=== PATIENT | male | born 1935 | race Caucasian/White ===

== ENCOUNTER 2017-04-17 21:35 | Emergency (ER) | payer MEDICARE, BC ==
--- NOTE | 2017-04-17 23:40 | RAD ---
CHEST ONE VIEW: History: Dyspnea. Comparison: 03-31-16 FINDINGS: Lungs are slightly hyperinflated. No focal airspace consolidation, pneumothorax or effusion. Chronic pleural and parenchymal changes. Old left sided rib fractures. IMPRESSION: No acute intrathoracic abnormality. POS: [facility]
== END 2017-04-18 00:39 | disposition home or self-care (01) ==
LOC: ERS 21:35
DX: J98.01 Acute bronchospasm (principal); F32.9 Major depressive disorder, single episode, unspecified; J44.9 Chronic obstructive pulmonary disease, unspecified; M10.9 Gout, unspecified; Z79.899 Other long term (current) drug therapy
CPT/HCPCS: 71010; 94760

== ENCOUNTER 2018-02-22 11:39 | Inpatient (IN) | payer MEDICARE, BC ==
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
[2018-02-22 12:00] LABS: #Eosinphils 0.3 thou/uL (0.0-0.7); #Lymphocytes 2.1 thou/uL (1.20-3.40); #Monocytes 1.4 thou/uL (0.11-0.59); #Neutrophils 13.4 thou/uL (1.40-6.50); %Basophils 0.2 % (0.0-1.0); %Eosinophils 1.6 % (0.0-10.0); %Lymphocytes 12.2 % (21.0-51.0); %Neutrophils 77.9 % (42.0-75.0); Hemoglobin 14.8 g/dL (14.0-18.0); Mean Corpuscular HGB CONC 31.6 g/dL (32.0-36.0); Mean Corpuscular Hemoglobin 31.1 pg (27.0-31.0); Mean Corpuscular Volume 98.3 fL (78.0-98.0); Mean Platelet Volume 7.8 fL (7.4-10.4); Platelet Count 222 thou/uL (130-400); RBC Distribution Width 12.6 % (11.5-14.5); Red Blood Cell (RBC) Count 4.75 mill/uL (4.70-6.10); White Blood Cell (WBC) Count 17.2 thou/uL (4.8-10.8)
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
[2018-02-22 12:19] LABS: ALT (SGPT) 24 U/L (8-55); AST (SGOT) 22 U/L (5-34); Alkaline Phosphatase 69 U/L (40-150); Anion Gap 15 mmol/L (10-20); BUN (Urea Nitrogen) 18 mg/dL (8.4-25.7); Bilirubin, Total 0.5 mg/dL (0.2-1.2); Calc. Creatinine Clearance 0 mL/min (70-130); Calcium 9.7 mg/dL (7.8-10.44); Carbon Dioxide 27 mmol/L (23-31); Chloride 99 mmol/L (98-107); Estimated GFR-MDRD 81; Globulin 2.6 g/dL (2.4-3.5); Glucose 140 mg/dL (83-110); Potassium 4.2 mmol/L (3.5-5.1); Protein, Total 6.6 g/dL (5.8-8.1); Sodium 137 mmol/L (136-145)
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
[2018-02-22] MEDS ORDERED: Ketorolac Tromethamine 30 MG/ML VIAL ONE (12:42)
[2018-02-22] MEDS ORDERED: Adacel (T-DAP) 0.5 ML VIAL ONE (12:56)
[2018-02-22] MEDS ORDERED: ISOVUE-370 76%-LOCM 1 ML ONE (13:39)
[2018-02-22] MEDS ORDERED: Dextrose 50% Abboject 50 ML SYRINGE SLOW IVP PRN (15:28)
[2018-02-22] MEDS ORDERED: Ondansetron ODT 4 MG TAB PO PRN (15:28)
[2018-02-22] MEDS ORDERED: Ondansetron HCl/PF 4 MG/2 ML Vial IVP PRN (15:28)
[2018-02-22] MEDS ORDERED: hydrALAZINE 20 MG/ML VIAL SLOW IVP PRN (15:28)
[2018-02-22] MEDS ORDERED: Rib Fracture Protocol PO SCH (15:28)
[2018-02-22] MEDS ORDERED: Dextrose 5% in Water 1,000 ML IV PRN (15:28)
[2018-02-22 16:33] VITALS: BMI 34.9
[2018-02-22] MEDS ORDERED: Cyclobenzaprine 10 MG TAB PO PRN (16:45)
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
[2018-02-22] MEDS ORDERED: Acetaminophen/Codeine 30-300mg Tablet PO PRN ×2 (16:57)
[2018-02-22] MEDS: Acetaminophen 500 MG TAB PO SCH ×2 (17:18→22:07)
[2018-02-22] MEDS ORDERED: Acetaminophen 500 MG TAB PO SCH (18:00)
[2018-02-22] MEDS ORDERED: traMADol HCl 50 MG TAB PO SCH (18:00)
[2018-02-22] MEDS: Gabapentin 100 MG CAP PO SCH (20:16)
[2018-02-22] MEDS ORDERED: Famotidine 20 MG TAB PO SCH (21:00)
[2018-02-22] MEDS ORDERED: Ibuprofen 600 MG TAB PO SCH (22:00)
[2018-02-23] MEDS: Acetaminophen 500 MG TAB PO SCH ×4 (04:06→22:40)
[2018-02-23] MEDS ORDERED: Non-Formulary Item 1 EACH (Fluticasone/Salmeterol [Advair Diskus 100/50] 1 INH) IH PRN (05:42)
[2018-02-23 06:14] LABS: Anion Gap 16 mmol/L (10-20); BUN (Urea Nitrogen) 26 mg/dL (8.4-25.7); Calc. Creatinine Clearance 86 mL/min (70-130); Calcium 9.1 mg/dL (7.8-10.44); Carbon Dioxide 25 mmol/L (23-31); Chloride 98 mmol/L (98-107); Estimated GFR-MDRD 76; Glucose 124 mg/dL (83-110); Potassium 4.5 mmol/L (3.5-5.1); Sodium 134 mmol/L (136-145)
[2018-02-23 06:46] LABS: #Eosinphils 0.2 thou/uL (0.0-0.7); #Lymphocytes 1.1 thou/uL (1.20-3.40); #Monocytes 1.2 thou/uL (0.11-0.59); #Neutrophils 7.9 thou/uL (1.40-6.50); %Basophils 0.3 % (0.0-1.0); %Eosinophils 2.4 % (0.0-10.0); %Lymphocytes 10.7 % (21.0-51.0); %Monocytes 10.9 % (0.0-10.0); %Neutrophils 75.7 % (42.0-75.0); Mean Corpuscular HGB CONC 32.2 g/dL (32.0-36.0); Mean Corpuscular Hemoglobin 31.7 pg (27.0-31.0); Mean Corpuscular Volume 98.5 fL (78.0-98.0); Mean Platelet Volume 7.6 fL (7.4-10.4); Platelet Count 156 thou/uL (130-400); RBC Distribution Width 12.4 % (11.5-14.5); Red Blood Cell (RBC) Count 4.08 mill/uL (4.70-6.10); White Blood Cell (WBC) Count 10.5 thou/uL (4.8-10.8)
[2018-02-23] MEDS: Mometasone/Formoterol 120 PUFF INHALER INH SCH ×2 (07:48→19:40)
[2018-02-23] MEDS ORDERED: Cetirizine HCl 10 MG TAB PO SCH (09:00)
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
[2018-02-23] MEDS: Loratadine 10 MG TAB PO SCH (09:13)
[2018-02-23] MEDS: Venlafaxine HCl XR 150 MG CAP PO SCH (09:13)
[2018-02-23] MEDS: predniSONE 5 MG TAB PO SCH (09:13)
[2018-02-23] MEDS: Calcium Carbonate + Vit D 1 TAB PO SCH (09:13)
[2018-02-23] MEDS: Allopurinol 300 MG TAB PO SCH (09:15)
[2018-02-23] MEDS: Gabapentin 100 MG CAP PO SCH ×3 (09:15→20:21)
[2018-02-23] MEDS: Ascorbic Acid 500 mg Chewable Tablet PO SCH ×2 (09:20→20:25)
[2018-02-23] MEDS: Enoxaparin Sodium 40 MG/0.4 ML SYRINGE SC SCH (12:43)
[2018-02-23] MEDS: Ferrous Sulfate 325 MG TAB PO SCH (20:21)
[2018-02-24] MEDS: Acetaminophen 500 MG TAB PO SCH ×4 (04:29→23:25)
[2018-02-24 06:54] LABS: Anion Gap 14 mmol/L (10-20); BUN (Urea Nitrogen) 33 mg/dL (8.4-25.7); Calc. Creatinine Clearance 75 mL/min (70-130); Calcium 9.5 mg/dL (7.8-10.44); Carbon Dioxide 28 mmol/L (23-31); Chloride 94 mmol/L (98-107); Estimated GFR-MDRD 65; Glucose 135 mg/dL (83-110); Magnesium 2.4 mg/dL (1.6-2.6); Phosphorus 3.6 mg/dL (2.3-4.7); Sodium 131 mmol/L (136-145)
[2018-02-24] MEDS: Mometasone/Formoterol 120 PUFF INHALER INH SCH ×2 (07:01→18:41)
[2018-02-24] MEDS ORDERED: traMADol HCl 50 MG TAB PO PRN ×2 (07:59→08:30)
[2018-02-24] MEDS: Allopurinol 300 MG TAB PO SCH (09:28)
[2018-02-24] MEDS: Calcium Carbonate + Vit D 1 TAB PO SCH (09:28)
[2018-02-24] MEDS: predniSONE 5 MG TAB PO SCH (09:29)
[2018-02-24] MEDS: Loratadine 10 MG TAB PO SCH (09:29)
[2018-02-24] MEDS: Gabapentin 100 MG CAP PO SCH ×3 (09:30→20:04)
[2018-02-24] MEDS: Venlafaxine HCl XR 150 MG CAP PO SCH (09:30)
[2018-02-24] MEDS: Enoxaparin Sodium 40 MG/0.4 ML SYRINGE SC SCH (09:30)
[2018-02-24] MEDS: ABIRATERONE ACETATE 250 MG PO SCH (09:31)
[2018-02-24] MEDS ORDERED: traMADol HCl 50 MG TAB PO SCH (12:00)
[2018-02-24] MEDS: traMADol HCl 50 MG TAB PO SCH ×2 (14:41→20:04)
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
[2018-02-24] MEDS: Ferrous Sulfate 325 MG TAB PO SCH (20:04)
[2018-02-25] MEDS: traMADol HCl 50 MG TAB PO SCH ×4 (02:18→21:56)
[2018-02-25] MEDS: Acetaminophen 500 MG TAB PO SCH ×4 (05:14→23:57)
[2018-02-25] MEDS: Mometasone/Formoterol 120 PUFF INHALER INH SCH ×2 (06:18→18:35)
[2018-02-25 07:12] LABS: Anion Gap 12 mmol/L (10-20); BUN (Urea Nitrogen) 23 mg/dL (8.4-25.7); Calc. Creatinine Clearance 108 mL/min (70-130); Calcium 9.3 mg/dL (7.8-10.44); Carbon Dioxide 28 mmol/L (23-31); Chloride 93 mmol/L (98-107); Estimated GFR-MDRD Greater than 90; Glucose 112 mg/dL (83-110); Potassium 4.9 mmol/L (3.5-5.1); Sodium 128 mmol/L (136-145)
[2018-02-25] MEDS: Enoxaparin Sodium 40 MG/0.4 ML SYRINGE SC SCH (08:32)
[2018-02-25] MEDS: Allopurinol 300 MG TAB PO SCH (08:33)
[2018-02-25] MEDS: Gabapentin 100 MG CAP PO SCH ×3 (08:33→21:56)
[2018-02-25] MEDS: predniSONE 5 MG TAB PO SCH (08:33)
[2018-02-25] MEDS: Calcium Carbonate + Vit D 1 TAB PO SCH (08:34)
[2018-02-25] MEDS: Loratadine 10 MG TAB PO SCH (08:36)
[2018-02-25] MEDS: ABIRATERONE ACETATE 250 MG PO SCH ×2 (08:38→15:12)
[2018-02-25] MEDS: Venlafaxine HCl XR 150 MG CAP PO SCH (08:38)
[2018-02-25] MEDS ORDERED: traMADol HCl 50 MG TAB PO PRN (10:14)
[2018-02-25] MEDS ORDERED: Polyethylene Glycol 3350 17 GM Packet PO SCH (11:45)
[2018-02-25] MEDS: Ibuprofen 800 MG TAB PO SCH ×2 (12:14→18:07)
[2018-02-25] MEDS ORDERED: Senokot S 8.6-50 MG TAB PO SCH (21:00)
[2018-02-25] MEDS: Ferrous Sulfate 325 MG TAB PO SCH (21:55)
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
[2018-02-26] MEDS: Ibuprofen 800 MG TAB PO SCH ×2 (02:22→09:53)
[2018-02-26] MEDS: traMADol HCl 50 MG TAB PO SCH ×2 (02:23→09:51)
[2018-02-26] MEDS: Acetaminophen 500 MG TAB PO SCH ×2 (05:17→14:07)
[2018-02-26] MEDS: Mometasone/Formoterol 120 PUFF INHALER INH SCH (06:15)
[2018-02-26 06:17] LABS: Anion Gap 13 mmol/L (10-20); BUN (Urea Nitrogen) 26 mg/dL (8.4-25.7); Calc. Creatinine Clearance 94 mL/min (70-130); Calcium 9.2 mg/dL (7.8-10.44); Carbon Dioxide 30 mmol/L (23-31); Chloride 93 mmol/L (98-107); Estimated GFR-MDRD 85; Glucose 121 mg/dL (83-110); Magnesium 2.1 mg/dL (1.6-2.6); Potassium 4.8 mmol/L (3.5-5.1); Sodium 131 mmol/L (136-145)
[2018-02-26] MEDS: ABIRATERONE ACETATE 250 MG PO SCH (08:22)
[2018-02-26] MEDS ORDERED: Polyethylene Glycol 3350 17 GM Packet PO SCH ×2 (09:00)
[2018-02-26] MEDS ORDERED: Docusate 100 MG CAP PO SCH (09:00)
[2018-02-26] MEDS ORDERED: Senokot 8.6 MG TAB PO SCH (09:00)
[2018-02-26] MEDS: Enoxaparin Sodium 40 MG/0.4 ML SYRINGE SC SCH (09:49)
[2018-02-26] MEDS: Venlafaxine HCl XR 150 MG CAP PO SCH (09:50)
[2018-02-26] MEDS: Gabapentin 100 MG CAP PO SCH (09:50)
[2018-02-26] MEDS: predniSONE 5 MG TAB PO SCH (09:53)
[2018-02-26] MEDS: Loratadine 10 MG TAB PO SCH (09:53)
[2018-02-26] MEDS: Allopurinol 300 MG TAB PO SCH (09:53)
[2018-02-26] MEDS: Calcium Carbonate + Vit D 1 TAB PO SCH (09:53)
[2018-02-26] MEDS ORDERED: traMADol HCl 50 MG TAB PO PRN (10:14)
[2018-02-26 12:54] VITALS: BP 120/78; TEMP 98
[2018-02-26] MEDS ORDERED: traMADol HCl 50 MG TAB PO SCH (15:00)
== END 2018-02-26 13:15 | DRG 185 ==
LOC: ERS 11:39 → SURG A 14:56
PROVIDERS: ADMIT Surgery; ATTEND Surgery
DX: S22.41XA Multiple fractures of ribs, right side, initial encounter for closed fracture (principal); S20.212A Contusion of left front wall of thorax, initial encounter; V43.52XA Car driver injured in collision with other type car in traffic accident, initial encounter; Y92.410 Unspecified street and highway as the place of occurrence of the external cause; Z88.0 Allergy status to penicillin; J44.9 Chronic obstructive pulmonary disease, unspecified; F32.9 Major depressive disorder, single episode, unspecified; Z85.46 Personal history of malignant neoplasm of prostate; Z82.49 Family history of ischemic heart disease and other diseases of the circulatory system
CPT/HCPCS: 36415; 36416; 70450; 71045; 71260; 72125; 74177; 80048; 80053; 83735; 84100; 85025; 90471; 90662; 90715; 94640; 96374; G0008; G0390; G8978-GP-CM; G8979-GP-CI; G8987-GO-CL; G8988-GO-CI; J1650; J1885; J7620

== ENCOUNTER 2018-08-10 07:51 | Observation (INO) | payer MEDICARE ==
[2018-08-10 08:46] LABS: #Basophils 0.1 thou/uL (0.0-0.2); #Eosinphils 0.4 thou/uL (0.0-0.7); #Lymphocytes 1.6 thou/uL (1.20-3.40); #Monocytes 1.4 thou/uL (0.11-0.59); #Neutrophils 8.1 thou/uL (1.40-6.50); %Basophils 0.4 % (0.0-1.0); %Eosinophils 3.1 % (0.0-10.0); %Lymphocytes 14.1 % (21.0-51.0); %Monocytes 11.9 % (0.0-10.0); %Neutrophils 70.5 % (42.0-75.0); Hemoglobin 13.1 g/dL (14.0-18.0); Mean Corpuscular HGB CONC 33.1 g/dL (32.0-36.0); Mean Corpuscular Hemoglobin 32.1 pg (27.0-31.0); Mean Corpuscular Volume 96.9 fL (78.0-98.0); Mean Platelet Volume 7.9 fL (7.4-10.4); Platelet Count 216 thou/uL (130-400); RBC Distribution Width 12.6 % (11.5-14.5); White Blood Cell (WBC) Count 11.4 thou/uL (4.8-10.8)
[2018-08-10 08:54] LABS: PTT 25.2 SEC (22.9-36.1); Prothrombin Time 12.9 SEC (12.0-14.7)
[2018-08-10 09:01] LABS: Anion Gap 9 mmol/L (10-20); BUN (Urea Nitrogen) 16 mg/dL (8.4-25.7); Calc. Creatinine Clearance 81 mL/min (70-130); Calcium 9.3 mg/dL (7.8-10.44); Carbon Dioxide 34 mmol/L (23-31); Chloride 101 mmol/L (98-107); Estimated GFR-MDRD 71; Glucose 100 mg/dL (83-110); Potassium 4.3 mmol/L (3.5-5.1); Sodium 140 mmol/L (136-145)
[2018-08-10] MEDS ORDERED: Fentanyl 100 MCG/2 ML VIAL ONE (09:37)
[2018-08-10] MEDS ORDERED: Midazolam HCl 2 mg/2 ml Vial ONE (09:37)
[2018-08-10] MEDS ORDERED: Propofol 500 MG/50 ML VIAL ONE (09:44)
[2018-08-10] MEDS ORDERED: Isoproterenol 0.2 MG/1 ML AMP ONE (10:47)
[2018-08-10] MEDS ORDERED: Heparin 10,000 UNITS/1 ML VIAL ONE (12:03)
[2018-08-10] MEDS ORDERED: PROVENTIL INHALER 6.7 G (200 INHALATIONS) INH PRN (13:14)
[2018-08-10] MEDS ORDERED: Acetaminophen 500 MG TAB PO PRN (13:14)
[2018-08-10] MEDS ORDERED: Acetaminophen/Codeine 30-300mg Tablet PO PRN ×2 (13:15)
--- NOTE | 2018-08-10 13:55 | OP ---
DATE OF PROCEDURE: 08/10/2018 PROCEDURES PERFORMED: Electrophysiology study and radiofrequency ablation. ADDITIONAL REFERRING PHYSICIAN: Dr. Jv Zheng. REASON FOR PROCEDURE: Mr. Jack is an 83-year-old gentleman with a history of atrial flutter post ablation in 2015, now presents with a narrow complex SVT. Here for a repeat EP study and radiofrequency ablation. DESCRIPTION OF PROCEDURE: The patient received propofol by Anesthesia specialist. After adequate level of sedation achieved, the left and right femoral venous areas were prepped, draped, and anesthetized using subcutaneous lidocaine and with ultrasound guidance, the left femoral vein was cannulated x2 with a 6 and 8- Czech short sheath was inserted. On the right side also with ultrasound guidance, the right femoral venous access was obtained and an 8-Czech short sheath was introduced. From the left side, actually 2 duodeca catheters were advanced to the right ventricle, His bundle, right atrium, and CS position. Pacing, mapping, and recording were performed in each location. Following findings were found, the baseline rhythm is sinus rhythm with cycle length of 591 milliseconds, MN 178, QRS 114, QT 382, AH 121, HV 41 milliseconds, sinus node recovery time was measured to be 931 milliseconds, and corrected at 330 milliseconds. AV Wenckebach cycle length was 310 milliseconds. Retrograde Wenckebach cycle length was 580 milliseconds. Concentric retrograde VA conduction was documented. With the atrial access to my testing, AV edward ERP was measured at 550/260 milliseconds. There was no evident dual AV edward physiology was present. With burst atrial pacing at baseline, only nonsustained rhythms were obtained. With Isuprel though, we were able to induce atrial tachycardia, which was a cycle length of 307 milliseconds. Overdrive pacing from the proximal CS yielded a shorter post pacing interval than from the lateral CS suggestive of right atrial origin. Ventricular overdrive pacing was also performed with return rhythm was VA-AV response suggestive of atrial tachycardia. This rhythm pace terminated with Isuprel decreased. The cycle length lowered with the same activation pattern to about 340-360 milliseconds. Pace mapping of this arrhythmia was performed, which was tracked earliest activation to the right anterolateral area of the tricuspid anulus about 11 o'clock direction. We were able to achieve a 70 milliseconds prior to the CS os in this location. The radiofrequency ablation was performed in this area. A total of 13 lesion delivered at total duration 2 minutes and 37 seconds at 40 christensen. High voltage stimulation in this area did not induce diaphragmatic stimulation. After these lesions were delivered during which transient acceleration of the tachycardia was seen, the tachycardia become uninducible. On and off Isuprel. Following that, with proximal CS pacing, right atrial map was performed, we checked the previous isthmus ablation line. With the mapping, we were able to demonstrate wide double potentials with transisthmus time being up to 120 milliseconds, with isthmus block was suggested by longest transisthmus time adjacent to the ablation line. Again, Isuprel was readministered and the atrial stimulation protocol was repeated with no evident re-inducibility of the tachycardia. At the end of the case, the cardiac silhouette did not change suggestive of noticing an effusion. Catheters and sheaths were pulled in the label sewer. The patient tolerated the procedure well. No complications noted. CONCLUSION: 1. Inducible right atrial tachycardia mapped to the right anterolateral area about 11 o'clock just behind the tricuspid anulus, cautery in this location in the intermediate tachycardia. 2. Prior transisthmus ablation line still produces sufficient cavo-tricupid isthmus block. No atrial flutter or fibrillation was inducible. 3. Normal sinus edward and AV edward function. 4. No evidence of accessory pathway or dual AV edward physiology present. PLAN: Taper down beta blockers as necessary and tolerated and routine monitoring for atrial arrhythmias. Job ID: [id number] [facility]
[2018-08-10 14:33] VITALS: BMI 34.4
[2018-08-10] MEDS ORDERED: PROPOFOL 200 MG/20 ML VIAL ONE (16:37)
[2018-08-10] MEDS: Mometasone/Formoterol 120 PUFF INHALER INH SCH (18:05)
[2018-08-11] MEDS ORDERED: Ondansetron ODT 4 MG TAB PO PRN (01:12)
[2018-08-11] MEDS: Mometasone/Formoterol 120 PUFF INHALER INH SCH (07:39)
[2018-08-11] MEDS ORDERED: Fish Oil 1,000 MG CAP PO SCH (09:00)
[2018-08-11] MEDS ORDERED: Multivitamin W/ Minerals 1 TAB PO SCH (09:00)
[2018-08-11] MEDS ORDERED: predniSONE 5 MG TAB PO SCH (09:00)
[2018-08-11] MEDS ORDERED: Senokot 8.6 MG TAB PO SCH (09:00)
[2018-08-11] MEDS ORDERED: Calcium Carbonate + Vit D 1 TAB PO SCH (09:00)
[2018-08-11] MEDS ORDERED: Prevnar 13-Val Conj/PF 0.5 ML SYRINGE IM ONE (09:00)
[2018-08-11] MEDS ORDERED: Loratadine 10 MG TAB PO SCH (09:00)
[2018-08-11] MEDS ORDERED: Allopurinol 300 MG TAB PO SCH (09:00)
[2018-08-11] MEDS ORDERED: Famotidine 20 MG TAB PO SCH (09:00)
[2018-08-11] MEDS ORDERED: ABIRATERONE ACETATE 250 MG PO SCH (09:00)
[2018-08-11] MEDS ORDERED: Venlafaxine HCl XR 150 MG CAP PO SCH (09:00)
[2018-08-11 12:16] VITALS: BP 145/74; TEMP 99.3
--- NOTE | 2018-08-11 14:18 | DIS ---
DATE OF ADMISSION: 08/10/2018 DATE OF DISCHARGE: 08/11/2018 PROCEDURES PERFORMED: Include electrophysiology study and radiofrequency ablation. DIAGNOSIS: Atrial tachycardia, supraventricular tachycardia. HISTORY OF PRESENT ILLNESS: Mr. Jack is an 83-year-old gentleman known to our practice for history of typical atrial flutter, status post CTI ablation in March 2015. Earlier this year, while being treated for respiratory illness, he was found to have SVT during COPD exacerbation. He was taken to the EP lab for study and possible ablation. He was found to have focal atrial tachycardia, was mapped to the right anterior lateral area at approximately 11 o'clock just behind the tricuspid anulus. CTI line was found to be sufficient and did not require any touch of ablation. He was noninducible for atrial fibrillation or atrial flutter. He was found to have normal sinus node and AV edward function. There was no accessory pathway or dual AV edward physiology present. SUBJECTIVE: Mr. Jack is feeling well. He did have some general aches and pains last night for which he was given Tylenol No. 3, which has caused some confusion over the night and into the morning. Otherwise, his daughter who is his inspector watch parts, is at bedside. There are no concerns or complaints this morning. Both vocalized and they are ready for him to discharge home. REVIEW OF SYSTEMS: Negative for fevers, chills, malaise, nausea, vomiting, or diarrhea. Positive for occasional heart racing. Negative for chest pain, pressure, syncope, near syncope, stroke, or stroke-like symptoms. Otherwise, an 8-point review of systems is conducted and is negative. OBJECTIVE: VITAL SIGNS: Temperature 97.6, pulse 92, blood pressure 145/74, respirations 16, oxygen is 95% on room air. GENERAL: The patient is alert and oriented, speech is clear. Affect is appropriate. Respirations are even and unlabored. LUNGS: Clear to auscultation bilaterally. HEART: Rate is regularly regular and slightly rapid with his sinus rhythm. PMI is nondisplaced. ABDOMEN: Soft, nontender, and nondistended. EXTREMITIES: Warm and dry to touch without clubbing, cyanosis, or edema. NEUROLOGIC: Grossly intact and nonfocal. DISCHARGE INSTRUCTIONS: No lifting greater than 10 pounds for 1 week. No soaking baths for 1 week. After 1 week's time, he may resume activities as before gradually and as tolerated. No driving for 2 days if he is still driving. Followup with [facility] recommended in 6 weeks post ablation or sooner if symptoms dictate. DISCHARGE MEDICATIONS: Resuming home medications as previously taken includin. Effexor daily. 2. Prednisone daily. 3. Danielle-Colace at bedtime. 4. Senokot daily. 5. Ranitidine b.i.d. 6. Zofran as needed. 7. Bernard fish oil daily. 8. Multivitamin daily. 9. Toprol-XL 37.5 mg daily. 10. DuoNeb t.i.d. 11. Advair Diskus daily as needed. 12. Cetirizine daily. 13. Calcium with vitamin D daily. 14. Allopurinol daily. 15. Albuterol q.4 hours p.r.n. 16. Tylenol as needed. 17. Zytiga daily. CONDITION ON DISCHARGE: Stable. Job ID: [id number]
[2018-08-11] MEDS ORDERED: Senokot S 8.6-50 MG TAB PO SCH (21:00)
== END 2018-08-11 14:15 | disposition home or self-care (01) ==
LOC: CCL 07:51 → 2SW 13:00
PROVIDERS: ADMIT Internal Medicine Cardiovascular Disease; ATTEND Internal Medicine Cardiovascular Disease
PROC: 02583ZZ Destruction of Conduction Mechanism, Percutaneous Approach (ICD-10-PCS; principal; 2018-08-10)
PROC: 02K83ZZ Map Conduction Mechanism, Percutaneous Approach (ICD-10-PCS; 2018-08-10)
PROC: 4A023FZ Measurement of Cardiac Rhythm, Percutaneous Approach (ICD-10-PCS; 2018-08-10)
PROC: 4A0234Z Measurement of Cardiac Electrical Activity, Percutaneous Approach (ICD-10-PCS; 2018-08-10)
DX: I47.1 Supraventricular tachycardia (principal); I48.3 Typical atrial flutter; J44.9 Chronic obstructive pulmonary disease, unspecified; K21.9 Gastro-esophageal reflux disease without esophagitis; F17.290 Nicotine dependence, other tobacco product, uncomplicated; M10.9 Gout, unspecified; I45.10 Unspecified right bundle-branch block; J69.0 Pneumonitis due to inhalation of food and vomit; Z79.52 Long term (current) use of systemic steroids; Z79.899 Other long term (current) drug therapy; Z88.6 Allergy status to analgesic agent; Z88.8 Allergy status to other drugs, medicaments and biological substances; Z98.890 Other specified postprocedural states
CPT/HCPCS: 76942; 80048; 85025; 85610; 85730; 93005 ×2; 93609; 93613; 93623; 93653; 94640 ×4; C1730 ×2; C1769; G0378; 36415; 93010; J1644; J2250; J2704; J3010; J7512; J7620

== ENCOUNTER 2018-12-02 09:04 | Outpatient (CLI) | payer MEDICARE, BC ==
--- NOTE | 2018-12-02 14:37 | NM ---
WHOLE BODY BONE SCAN: 12/02/18 COMPARISON: 03/20/16. HISTORY: Prostate cancer. TECHNIQUE: A whole body bone scan was performed after the administration of 28.9 millicuries of technetium 99m M DP. FINDINGS: There are abnormal areas of uptake of the radiopharmaceutical in the right ribs and within the manubr ium. There also is a focal area of abnormal increased uptake of the radiopharmaceutical in the midlin e of the upper thoracic spine. These findings are suspicious for osseous metastases. Soft tissue activity is unremarkable. IMPRESSION: Abnormal areas of uptake of the radiopharmaceutical are suspicious for osseous metastases as above. POS: [facility]
== END 2018-12-02 09:05 | disposition home or self-care (01) ==
LOC: NM 09:04
PROVIDERS: ATTEND Internal Medicine Hematology & Oncology
DX: C61 Malignant neoplasm of prostate (principal); R94.8 Abnormal results of function studies of other organs and systems
CPT/HCPCS: 78306; A9503

== ENCOUNTER 2019-06-02 21:11 | Inpatient (IN) | payer MEDICARE, BC ==
[2019-06-02] MEDS ORDERED: Cefepime 2 GM VIAL ONE (21:46)
[2019-06-02 22:16] LABS: Band 5 % (5-11); Hemoglobin 6.3 g/dL (14.0-18.0); Lymphocytes 6 % (21-51); MDiff Complete? YES; Mean Corpuscular HGB CONC 32.4 g/dL (32.0-36.0); Mean Corpuscular Hemoglobin 32.9 pg (27.0-31.0); Mean Platelet Volume 7.4 fL (7.4-10.4); Monocytes 1 % (0-10); Neutrophil 88 % (42-75); Platelet Count 106 thou/uL (130-400); Platelet Morphology Comment Appears Decreased; RBC Distribution Width 12.6 % (11.5-14.5); Red Blood Cell (RBC) Count 1.92 mill/uL (4.70-6.10); White Blood Cell (WBC) Count 3.7 thou/uL (4.8-10.8)
[2019-06-02 22:19] LABS: ALT (SGPT) 9 U/L (8-55); AST (SGOT) 23 U/L (5-34); Albumin 2.3 g/dL (3.4-4.8); Alkaline Phosphatase 54 U/L (40-110); Anion Gap 11 mmol/L (10-20); BUN (Urea Nitrogen) 20 mg/dL (8.4-25.7); Bilirubin, Total 0.4 mg/dL (0.2-1.2); Calc. Creatinine Clearance 0 mL/min (70-130); Calcium 6.5 mg/dL (7.8-10.44); Carbon Dioxide 22 mmol/L (23-31); Chloride 111 mmol/L (98-107); Estimated GFR-MDRD 46; Globulin 2.3 g/dL (2.4-3.5); Glucose 74 mg/dL (83-110); Magnesium 1.4 mg/dL (1.6-2.6); Potassium 3.2 mmol/L (3.5-5.1); Protein, Total 4.6 g/dL (5.8-8.1); Sodium 141 mmol/L (136-145)
[2019-06-02] MEDS ORDERED: Norepinephrine 8 MG/0.9% NS 250 ML ONE (22:24)
--- NOTE | 2019-06-02 22:30 | RAD ---
Chest one view HISTORY: Central line placement. COMPARISON: 04/23/2019. FINDINGS: Cardiac silhouette is magnified by projection. Pulmonary vasculature is unremarkable. Media stinum is midline. Tip of a left internal jugular central venous catheter projects over the superior vena cava. Calcification over the arterial structures. No evidence of pneumothorax. IMPRESSION: Left internal jugular catheter is in good position. Atherosclerosis.
[2019-06-02] MEDS ORDERED: Magnesium 2 GM/50 ML BAG (IN WATER) ONE (22:41)
[2019-06-02 22:49] LABS: CKMB 1.1 ng/mL (0-6.6)
[2019-06-02] MEDS ORDERED: Potassium Chloride 20 MEQ in Premix Bag 1 BAG IVPB SCH (23:00)
[2019-06-02 23:47] LABS: Base Excess-Venous -3.2 mmol/L (-2.0 to 3.0); Bicarbonate (HCO3v) 24.4 mmol/L (22.0-28.0); CO2 Tension (PvCO2) 54.1 mmHg (40.0-50.0); Calcium, Ionized 1.02 mmol/L (See Comments:); Chloride 106 mmol/L (98-107); Hemoglobin - Calc 12.5 g/dL (14.0-18.0); Potassium 3.5 mmol/L (3.5-5.1); Sodium 140 mmol/L (138-145); T. Carbon Dioxide 26.1 mmol/L (22.0-28.0)
[2019-06-03] MEDS ORDERED: CCU Electrolyte Replacement 1 EACH IVPB ONE (00:39)
[2019-06-03] MEDS ORDERED: Sodium Chloride 0.9% 1,000 ML IV SCH ×2 (00:45→07:15)
[2019-06-03 00:46] LABS: Lactic Acid 2.8 mmol/L (0.5-2.2)
[2019-06-03] MEDS ORDERED: Hydrocortisone Sod Succ/PF 100 mg/2 ml Vial IVP SCH (01:00)
[2019-06-03] MEDS ORDERED: Hydrocortisone Sod Succ/PF 100 mg/2 ml Vial ONE (01:02)
[2019-06-03] MEDS ORDERED: Magnesium Oxide 400 MG TAB PO PRN ×2 (02:01)
[2019-06-03] MEDS ORDERED: Magnesium 2 GM/50 ML 2 GM in Premix Bag 1 BAG IVPB PRN (02:01)
[2019-06-03] MEDS ORDERED: Potassium Chloride 40 MEQ in Premix Bag 1 BAG IVPB PRN (02:01)
[2019-06-03] MEDS ORDERED: Potassium Chloride 40 MEQ in Sodium Chloride 0.9% 250 ML 250 ML IVPB PRN (02:01)
[2019-06-03] MEDS ORDERED: Potassium Phosphate 15 MMOL in Sodium Chloride 0.9% 250 ML 250 ML IV PRN (02:01)
[2019-06-03] MEDS ORDERED: CCU ELECTROLYTE REPLACEMENT PROTOCOL FS PRN (02:01)
[2019-06-03] MEDS ORDERED: Potassium Phosphate 12 MMOL in Sodium Chloride 0.9% 250 ML 250 ML IV PRN (02:01)
[2019-06-03] MEDS ORDERED: PHOS-NAK 1 PKT PACK PO PRN ×2 (02:01)
[2019-06-03] MEDS ORDERED: Potassium Phosphate 9 MMOL in Sodium Chloride 0.9% 100 ML IVPB PRN (02:01)
[2019-06-03] MEDS ORDERED: Potassium Chloride 20 MEQ TAB PO PRN (02:01)
[2019-06-03] MEDS: Norepinephrine 8 MG/0.9% NS 250 ML IVPB PRN ×2 (03:36→12:04)
[2019-06-03 04:37] LABS: Lactic Acid 3.1 mmol/L (0.5-2.2)
[2019-06-03 04:49] LABS: Anion Gap 17 mmol/L (10-20); BUN (Urea Nitrogen) 28 mg/dL (8.4-25.7); Calc. Creatinine Clearance 28 mL/min (70-130); Calcium 7.9 mg/dL (7.8-10.44); Carbon Dioxide 22 mmol/L (23-31); Chloride 106 mmol/L (98-107); Estimated GFR-MDRD 24; Glucose 112 mg/dL (83-110); Potassium 4.8 mmol/L (3.5-5.1); Sodium 140 mmol/L (136-145)
--- NOTE | 2019-06-03 04:54 | HP ---
CHIEF COMPLAINT: Generalized weakness and pain. HISTORY OF PRESENT ILLNESS: The patient is an 83-year-old male with a history of atrial fibrillation status post ablation, history of SVT, has a history of prostate cancer with prostatectomy, who presents to the hospital with complaints of generalized weakness going on for the past 4 or 5 days. The patient's family members at the bedside, who is the armed security guard of the patient, states that the patient has not been feeling well since Friday. She stated that he has been eating, however, not very much, has been complaining of generalized body aches and pains. He also has been very tired and has been a little lethargic than his usual self. However, on Friday, the patient started having significant amount of fevers all day. Multiple doses of Tylenol were provided without any relief. At this time, the patient was so weak to the point that he could not walk. The patient normally is able to do his activities of daily living and so, he was brought into the hospital. Per EMS report that they received, the patient's blood pressure was in the 50s and at this time, he was resuscitated per sepsis protocol and he was also started on Levophed. PAST MEDICAL HISTORY: As of the followin. He has a history of prostate cancer. 2. History of gout. 3. He has a history of COPD. 4. He has sleep apnea. 5. Asthma. 6. History of SVT. 7. He has a history of atrial fibrillation, status post ablation. PAST SURGICAL HISTORY: He has had orthopedic surgery, left knee surgery, neck and back surgery, prostatectomy and heart ablation cataract surgery. SOCIAL HISTORY: No alcohol use or drug use. The patient currently chews tobacco. Lives at home with a caregiver. He has no intubation, no CPR, no cardiac shock. FAMILY HISTORY: No history of heart disease or stroke. ALLERGIES: HE IS ALLERGIC TO ASPIRIN, DEXTROMETHORPHAN, IBUPROFEN, MUCINEX, NAPROXEN, AND GUAIFENESIN. MEDICATIONS: He is on: 1. Zytiga 250 mg daily. 2. Prednisone 10 mg daily. 3. Calcium. 4. Metoprolol 25 mg daily. 5. Stool softener 100 mg daily. 6. Allopurinol 300 mg daily. 7. Centrum 1 p.o. daily. 8. Zyrtec 10 mg daily. 9. Venlafaxine 150 mg daily. PHYSICAL EXAMINATION: VITAL SIGNS: Initially in the ER, he had a temperature of 98.8. His blood pressure was 61/45. Currently, his blood pressure is 128/84. Heart rate of 117, respiration 20, 95% on room air. GENERAL: He is awake, appears ill, able to follow some commands, but generally keeps his eyes closed. Family is at bedside. CV: S1 and S2 present. Tachycardic. LUNGS: Clear to auscultation. No rhonchi or wheezes noted. ABDOMEN: Soft. Bowel sounds are present x2. Obese. He does have some pain on pushing on his lower abdominal area. EXTREMITIES: Pedal pulses are present x2. He does have some mild 1+ lower extremity edema. Neurovascular lopez, no focal deficits noted. SKIN: No cuts, lesions or bruises noted. LABORATORY RESULTS: WBCs of 3.7, hemoglobin of 6.3, hematocrit of 19.5. His platelets are 106. Chemistry; sodium of 141, potassium of 3.2, BUN of 20, creatinine 1.45. His lactic acid initially was 3.3, then it was 2.8. His troponin went up to 0.30. The patient was unable to provide urine even with a Macario catheter. Chest x-ray was done, did not indicate any acute abnormalities. He also had an influenza flu swab, which was negative. Stool was checked and was negative for occult blood. ASSESSMENT AND PLAN: The patient is an 83-year-old male, who presents to the hospital with complaints of generalized weakness. 1. Septic shock. The patient was given sepsis protocol, fluids, also started on Levophed. He is type and screened. His blood transfusion has been started. I gave him an extra 500 mL of normal saline bolus. I ordered a CT of abdomen and pelvis, which indicated left high-grade obstructing stone causing hydronephrosis, most likely the source of it. He currently has not had any urine output. We will check BMP now to see that if his creatinine has worsened on the CAT scan. His Macario is in place. However, his IVC appears to be very compressed, most likely from dehydration. I will call Urology and I have discussed the case with the patient's family with the CAT scan findings. 2. Pancytopenia. Again, I am not sure this is from his oral chemotherapy medication versus his current sepsis. We will start patient on broad-spectrum antibiotics and also we will transfuse him as needed. 3. Acute kidney injury, most likely secondary to his obstructive uropathy and also dehydration. The patient has had no urine output. We will continue to monitor. He does have a Macario catheter. 4. Elevated troponins. Again, he has no significant EKG changes. He denies any chest pain. We will trend the troponins. Also, this could most likely secondary be due to demand and also he was hypotensive. 5. Prostate cancer. We will hold off on his medications and continue to monitor. 6. He also has an acute fracture of the inferior endplate of thoracic T11. We will get Neurosurgery to evaluate this patient. 7. Deep venous thrombosis prophylaxis. We will put the patient on SCDs for now due to his low H and H. Job ID: [id number]
[2019-06-03] MEDS ORDERED: Iothalamate Meglumine 60% 50 ML VIAL FS ONE (05:55)
[2019-06-03] MEDS ORDERED: Fentanyl 100 MCG/2 ML VIAL ONE (06:24)
[2019-06-03] MEDS ORDERED: Ketamine 50 MG/ML (10ML VIAL) ONE (06:50)
[2019-06-03] MEDS ORDERED: Vasopressin 40 UNIT, Admixture Fee 1 EACH in Sodium Chloride 0.9% 100 ML IV SCH (07:15)
[2019-06-03] MEDS ORDERED: Vancomycin HCl 1.25 GM in Sodium Chloride 0.9% 250 ML 250 ML IVPB SCH ×2 (07:30→22:00)
[2019-06-03 07:45] LABS: Reticulocyte Count 1.2 % (0.5-1.5)
[2019-06-03] MEDS ORDERED: Calcium Chloride 13.6 MEQ in Sodium Chloride 0.9% 100 ML IVPB SCH (07:45)
[2019-06-03 07:52] LABS: Prothrombin Time 12.8 SEC (12.0-14.7)
--- NOTE | 2019-06-03 07:53 | CT ---
PRELIMINARY REPORT/[facility]/EMERGENCY AFTER HOURS PROCEDURE: EXAM: CT Abdomen and CT Pelvis, without Contrast DATE/ TIME: 06/03/2019, 1:41 AM INDICATION: Fever; vomiting; abdominal pain. Decreased urine output. PSx: prostatectomy. TECHNIQUE: Helical CT was performed through the abdomen and pelvis without intravenous or GI contras t administration. Coronal and sagittal reconstructions were generated and reviewed. Exam was performed using one or more of the following dose reduction techniques: automated exposure control, adjustment of the mA and/or kV according to patient size, or use of iterative reconstruction technique. COMPARISON: None. FINDINGS: The initial images begins at the level of the aortic root with calcified atheroma noted in the coronary arteries. The heart is not enlarged. Peripheral subpleural atelectasis and/or scarring within the basal segments of both lower lobes is seen. Within this process are tiny calcifi cations compatible with chronicity. In the left ureter just above the level of the sacral promontory there is a 10.5 x 5.0 x 7.5 mm calcu adalgisa which is causing [id number] left hydroureteronephrosis. Right kidney is unremarkable. Moderate atherosclerotic calcified plaquing of the abdominal aortic continues into branch vessels inc luding the superior mesenteric artery and iliac arterial system. The inferior vena cava is somewhat flattened in appearance. Prostate is absent with numerous metallic clips in the pelvic side wall regions. Macario catheter is indwelling in the urinary bladder which is decompressed. There is no ascites. Gallbladder is unremarkable. Liver, adrenal glands and spleen show no noncontrast abnormality. Panc reas is moderately atrophic. The appendix is seen and is normal. There is no bowel obstruction. Numerous diverticula are seen within the left hemicolon. There is no intestinal pneumatosis, portal venous air or pneumoperitoneum. There is a large amount of retroperitoneal and intra-abdominal adipose tissue. Marked lumbar facet arthropathy is seen. A lucent linear line parallels the inferio r endplate of T11 compatible with fracture. Discogenic degenerative changes are seen and most pronounced at the L1-L2 and L3-L4 levels. Coronal reconstructions show minimal levoconvex rotoscolio sis with apex at the L3 vertebral body level. IMPRESSION: 1. High-grade obstructing left uropathy due to a large 10.5 x 5.0 x 7.5 mm calculus in the left mid ureter. 2. Acute fracture of the inferior endplate of T11. 3. Flattened inferior vena cava suggests a component of hypovolemia. 4. Left-sided colonic diverticulosis. 5. Coronary and aortoiliac atherosclerosis. 6. Bibasilar subpleural scarring. ELECTRONICALLY SIGNED BY: Elder Sykes DO Jun 03, 2019 3:05:03 AM NEWS LIBRARIAN FINAL REPORT CT ABDOMEN AND PELVIS WITHOUT CONTRAST: I agree with the report given by Dr. Elder Sykes of [facility]. Transcribed Date/Time: 06/03/2019 8:19 AM
[2019-06-03 07:55] LABS: Hemoglobin 14.6 g/dL (14.0-18.0); Mean Corpuscular HGB CONC 32.3 g/dL (32.0-36.0); Mean Corpuscular Hemoglobin 31.9 pg (27.0-31.0); Mean Corpuscular Volume 98.8 fL (78.0-98.0); Mean Platelet Volume 7.7 fL (7.4-10.4); Platelet Count 206 thou/uL (130-400); RBC Distribution Width 14.5 % (11.5-14.5); Red Blood Cell (RBC) Count 4.56 mill/uL (4.70-6.10); White Blood Cell (WBC) Count 25.2 thou/uL (4.8-10.8)
[2019-06-03 07:59] LABS: Iron 15 ug/dL (65-175); Iron Binding Capacity, Total 233 mcg/dL (261-462)
[2019-06-03 08:02] LABS: Lactic Acid 3.1 mmol/L (0.5-2.2)
[2019-06-03 08:05] LABS: CO2 Tension 45.2 mmHg (35.0-45.0); Calcium, Ionized 1.11 mmol/L (1.12-1.30); Carboxyhemoglobin (COHb) 1.5 gm% (0.0-3.0); Hemoglobin (Hb) 15.1 g/dL (14.0-18.0); O2 Tension (PaO2) 198.7 mmHg (> 60.0); Potassium - ABG Lab 4.68 mmol/L (3.70-5.30); pH, Arterial 7.26 (7.35-7.45)
--- NOTE | 2019-06-03 08:08 | RAD ---
XR IVP Retrograde HISTORY: Left ureteral stone and stent placement COMPARISON: None. FINDINGS: A left-sided ureteral stent has been placed. There is contrast in the left pelvic calyceal system. Postop changes seen in the pelvis.
[2019-06-03 08:11] LABS: Puncture Site RR
[2019-06-03] MEDS: Hydrocortisone Sod Succ/PF 100 mg/2 ml Vial IVP SCH ×3 (08:24→20:03)
[2019-06-03] MEDS: MEROPENEM 1 GM/50 ML 1 GM in Premix Bag 1 BAG IVPB SCH ×2 (08:24→20:04)
[2019-06-03 08:26] LABS: Band 38 % (5-11); Lymphocytes 2 % (21-51); MDiff Complete? YES; Monocytes 5 % (0-10); Neutrophil 55 % (42-75); Platelet Morphology Comment Appears Adequate; Polychromasia SLIGHT = 2-3 cells (100X) (0-2/hpf); Vacuoles SLIGHT
[2019-06-03] MEDS: Famotidine 20 MG TAB PO SCH (08:27)
[2019-06-03] MEDS ORDERED: Vancomycin HCl 1 GM in Premix Bag 1 BAG IVPB SCH (09:00)
[2019-06-03] MEDS ORDERED: Cefepime 2 GM in Sodium Chloride 0.9% 100 ML IVPB SCH (09:00)
--- NOTE | 2019-06-03 09:13 | CON ---
DATE OF CONSULTATION: 06/03/2019 SERVICE: Pulmonary Medicine. REASON FOR CONSULTATION: Septic shock. HISTORY OF PRESENT ILLNESS: The patient is an 83-year-old white male with past medical history significant for fairly advanced prostate cancer. That being said, he experienced a fairly significant interlude/remission. He has failed multiple different medications and has progressed on that. That being said, his quality of life is not terrible. He goes and plays dominoes on a weekly basis with his friends, and takes care of all of his ADLs. In his usual state of health, 4 days ago, he started feeling weak, fatigued. He continued with his daily activities , but this progressed to the point where he started having some nausea and vomiting and was not tolerating p.o. He presented to the emergency department. Initial diagnostic workup showed an obstructing right nephrolithiasis. Currently, he is encephalopathic and not able to provide any additional elements of the history. PAST MEDICAL HISTORY: 1. Prostate cancer, status post prostatectomy. This is fairly aggressive though being held at [place] with good medications. 2. COPD. 3. Obstructive sleep apnea. 4. Asthma. 5. History of SVT. 6. Atrial fibrillation, status post ablation. 7. Gout. PAST SURGICAL HISTORY: 1. Cardiac ablation for atrial fibrillation. 2. Left knee surgery. 3. Neck surgery. 4. Back surgery. 5. Prostatectomy. 6. Cataract surgery. SOCIAL HISTORY: Negative for alcohol, tobacco, or illicit drug use. He has no exposure to chemicals, dust, asbestos, or tuberculosis. FAMILY HISTORY: Noncontributory. ALLERGIES: ASPIRIN, DEXTROMETHORPHAN, IBUPROFEN, MUCINEX, NAPROXEN, AND GUAIFENESIN. MEDICATIONS: List of his inpatient medications were reviewed. Multiple updates were made at this time. REVIEW OF SYSTEMS: Cannot be obtained because of encephalopathy. PHYSICAL EXAMINATION: VITAL SIGNS: Afebrile; pulse 119; blood pressure 133/78; respirations 19; saturation 9%, currently on 2 L nasal cannula. GENERAL: The patient is awake. He follows some simple commands, without stimulation, he dressed right back off to sleep. HEENT: Normocephalic and atraumatic. Sclerae are white. Conjunctivae are pink. Oral mucosa is moist without lesions. LUNGS: Decent air entry. Rhonchi are present. There is a slightly prolonged expiratory phase, but no wheezing. No crackles are present. HEART: Normal rate. Regular. ABDOMEN: Soft, nontender, and nondistended. Bowel sounds are positive. MUSCULOSKELETAL: No cyanosis or clubbing. There is no pitting in bilateral lower extremities. Skin tenting is present. NEUROLOGIC: Grossly nonfocal. LABORATORY DATA: WBC 3.7, hemoglobin 6.3 over baseline of 13, and platelets 106,000. PH of 7.23, pCO2 of 54, and pO2 of 45, this may have been a VBG. Creatinine is up-trending to 2.59. Basic metabolic profile is otherwise unremarkable. Lactate 2.8 is up-trending to 3.1. Ionized calcium 1.02. Troponin 0.3. Liver function studies are otherwise unremarkable. Magnesium 1.6, calcium 6.5. Occult blood is negative. Influenza A and B are unremarkable. IMAGING DATA: 1. CT of the abdomen and pelvis demonstrates hydronephrosis of the right kidney with an obstructing stone. There is pleural thickening, and minimal pleural fluid present. Stomach is distended. No significant free fluid is appreciated by me. Stranding is present around the left kidney. Bladder is decompressed. 2. Chest x-ray demonstrates no acute cardiopulmonary abnormality. ASSESSMENT: 1. Septic shock. 2. Chronic obstructive pulmonary disease. 3. Acute kidney injury. 4. Anemia, with acute to subacute presentation (no obvious blood loss has been identified). 5. Prostate cancer, status post chemotherapy and radiation, currently on maintenance drugs. 6. Urinary tract infection with obstructing nephrolithiasis and [id number] hydronephrosis on the right. DISCUSSION AND PLAN: We will continue his antibiotics. Stress dose of steroids will be initiated. I will transduce the CVP. If the number is acceptable, no additional fluids will be provided and we will focus on just giving pressors. I agree with a unit of blood. We will replete the hemoglobin and hematocrit, and lactate in a couple of hours. Calcium and magnesium will be replaced. This patient remains critically sick. If things do not turn around abruptly with our supportive care, it is very likely that he will . He is currently a DNR/DNI, but the family would be okay with a procedure. Critical Care will follow closely. 70 minutes have been devoted to this patient in various activities. I personally reviewed all imaging studies and laboratory data noted within this document. For fifty percent of this time, I was interacting with the patient at the bedside or coordinating care with the care team. For the remainder of the time I was immediately available to the patient in the hospital unit. Job ID: [id number] MTDDonna
--- NOTE | 2019-06-03 09:13 | OP ---
DATE OF PROCEDURE: 06/03/2019 PREOPERATIVE DIAGNOSES: 1. Sepsis. 2. Left ureteral stone. POSTOPERATIVE DIAGNOSES: 1. Sepsis. 2. Left ureteral stone. PROCEDURES PERFORMED: 1. Cystoscopy. 2. Left stent. 3. Left retrograde. ANESTHETIC: General. ESTIMATED BLOOD LOSS: Less than 50. FINDINGS: He has strictures and narrowing of his urethra. He has an absent prostate. He has a fixed bladder neck to the pelvic sidewall. He has radiation changes on the floor and trigone and sidewalls of the bladder. Left ureteral orifice and right ureteral orifice were easily identified. Retrograde study on the left side showed some left hydronephrosis and a filling defect in the mid left ureter. The patient has been anuric since coming to the hospital, but he had probably 10 mL of cloudy urine in his Macario drainage tube, that we did send for urinalysis and culture. He was not given any extra antibiotics. He received Rocephin and vancomycin in the emergency center a few hours ago. DESCRIPTION OF PROCEDURE: After obtaining written and verbal consent from the power of commercial litigation attorney and family member, he was taken to the operating suite. He was placed in a supine position on the treatment table. PlexiPulses were placed on his lower extremities and turned on. He was given a general anesthetic and oral intubation. He was placed in dorsal lithotomy position, sterilely prepped and draped. Cystoscopy was performed with a 22-Zimbabwean sheath. It was passed well lubricated under direct vision through the male urethra into the bladder. The bladder was filled and emptied, it had some debris on it. Findings were as above. The Pollack catheter 5-Zimbabwean was placed in the left ureteral orifice and about 10 mL were injected in a retrograde manner with the above findings. The guidewire then easily went up to the region of the renal pelvis. We then removed the Pollack catheter and passed the stent over the guidewire, pushing up into place with aid of a pusher, so its proximal end coiled in the renal pelvis and its distal end coiled in the bladder. The instruments were removed. Macario catheter was placed. His urine was bloody. I think likely from the cystoscopy as well as the radiation. For that reason, we removed this catheter and placed an 18-Zimbabwean 3-way catheter and started on a slow CBI. He was taken out of dorsal lithotomy position. He was not extubated, but taken to the ICU intubated. Job ID: [id number]
[2019-06-03] MEDS ORDERED: fentaNYL Citrate/PF 2,000 MCG in Sodium Chloride 0.9% 60 ML IV SCH (10:29)
--- NOTE | 2019-06-03 10:30 | CON ---
DATE OF CONSULTATION: 06/03/2019 HISTORY OF PRESENT ILLNESS: This is an 83-year-old male, who I have known for a long time as a patient, seeing in room A7 in the ICU, who was admitted, it looks like that is in wrapping machine tender hours today from the ER. He came in with a probably two or three days of increased somnolence and decreased intake of fluid. He came in, was hypotensive, but significantly enough hypotensive that he required Levophed to be given. His creatinine was normal when he came in. He has had no urine output, I do not believe since being in the hospital. He was started empirically on cefepime and was given a dose of vancomycin as well as some stress steroids as he is on some chronic steroid that he takes with the Zytiga. His white count was 3.7 and his hemoglobin was 6.3. He is receiving some blood. His platelet count was 106. Repeat creatinine was 2.5, so it has gone up from 1.4 to 2.5. Lactic acid was elevated. Potassium is normal. Liver function was normal. He had a CAT scan done that shows some left hydronephrosis and a left mid ureteral stone about a centimeter in size. Macario catheter is in his bladder. Apparently, there is no trouble getting it in. He has not had any urine output since his bladder does not appear distended. He is still making no urine. I reviewed his x-rays and his lab work. PAST MEDICAL HISTORY: He has prostate cancer. He had a radical prostatectomy probably 20 years ago. He had salvage radiation. He was on Lupron, then he was on Lupron and Xtandi and I think that was changed now to Lupron and Zytiga and steroid. He also has a history of gout. He has a history of COPD, sleep apnea, asthma, ventricular tachycardia, and atrial fibrillation, which he has had ablations for. He has had left knee surgery, neck surgery, back surgery, and cataract surgery as well as the ablations and the prostate surgery. SOCIAL HISTORY: Does not smoke. Does not drink. ALLERGIES: HE HAS ALLERGIES TO NONSTEROIDALS, ASPIRIN, DEXTROMETHORPHAN, AND MUCINEX. ASSESSMENT AND PLAN: I talked with his daughter and his family about options on him. It is probably likely that his left ureteral stone is somewhat involved in his sepsis and his oliguric state. Options of trying to get a stent up for nephrostomy tube were discussed and is not unreasonable to try to get a stent up to him. I have talked to Dr. Prater, the linoleum layer helper, who saw him, he felt like that this was a reasonable thing to do also. He will end up requiring intubation to do this and the plan will be to keep him intubated overnight. I did let the family know there was a chance, we were not committable to find that left ureteral orifice because of his prior prostate surgery and radiation, it could make it difficult, in which case a nephrostomy tube may need to be done. But, we will try for a stent and a retrograde and cystoscopic exam this morning emergently. He has received IV antibiotics. His renal function is deteriorating. I do not think he normally needs to be redosed. He is also to receive some stress steroids. Job ID: [id number]
[2019-06-03] MEDS: Sodium Chloride 0.45% 1,000 ML IV SCH (10:50)
[2019-06-03] MEDS: Propofol 1,000 MG/100 ML VIAL IV PRN (10:54)
[2019-06-03] MEDS ORDERED: Succinylcholine Chloride 20 MG/ML 10 ml SYRINGE FS ONE (15:48)
[2019-06-03] MEDS ORDERED: Rocuronium Bromide 10 MG/ML (10ML VIAL) ONE (15:48)
[2019-06-03] MEDS ORDERED: Esmolol 100 MG/10 ML VIAL ONE (15:48)
[2019-06-04] MEDS: Sodium Chloride 0.45% 1,000 ML IV SCH ×2 (00:05→18:05)
[2019-06-04] MEDS: Hydrocortisone Sod Succ/PF 100 mg/2 ml Vial IVP SCH ×4 (01:01→18:49)
[2019-06-04] MEDS: Propofol 1,000 MG/100 ML VIAL IV PRN (01:44)
[2019-06-04 05:03] LABS: ALT (SGPT) 27 U/L (8-55); AST (SGOT) 42 U/L (5-34); Albumin 2.6 g/dL (3.4-4.8); Alkaline Phosphatase 85 U/L (40-110); Anion Gap 13 mmol/L (10-20); BUN (Urea Nitrogen) 41 mg/dL (8.4-25.7); Bilirubin, Total 0.5 mg/dL (0.2-1.2); Calc. Creatinine Clearance 36 mL/min (70-130); Calcium 8.2 mg/dL (7.8-10.44); Carbon Dioxide 23 mmol/L (23-31); Chloride 109 mmol/L (98-107); Estimated GFR-MDRD 31; Globulin 2.7 g/dL (2.4-3.5); Glucose 158 mg/dL (83-110); Magnesium 1.9 mg/dL (1.6-2.6); Potassium 4.6 mmol/L (3.5-5.1); Protein, Total 5.3 g/dL (5.8-8.1); Sodium 140 mmol/L (136-145)
[2019-06-04 05:06] LABS: Anisocytosis SLIGHT = 6-15 cells (100X) (0-5/hpf); Band 38 % (5-11); Hemoglobin 12.3 g/dL (14.0-18.0); Lymphocytes 3 % (21-51); MDiff Complete? YES; Mean Corpuscular HGB CONC 32.1 g/dL (32.0-36.0); Mean Corpuscular Hemoglobin 30.9 pg (27.0-31.0); Mean Corpuscular Volume 96.2 fL (78.0-98.0); Mean Platelet Volume 8.1 fL (7.4-10.4); Monocytes 1 % (0-10); Neutrophil 58 % (42-75); Platelet Count 179 thou/uL (130-400); RBC Distribution Width 14.9 % (11.5-14.5); White Blood Cell (WBC) Count 27.5 thou/uL (4.8-10.8)
[2019-06-04 07:02] LABS: Actual Bicarbonate (HCO3a) 21.2 mEq/L (22-28); Base Excess (BEa) -3.6 mEq/L (-2.0 to +3.0); CO2 Tension 37.3 mmHg (35.0-45.0); Calcium, Ionized 1.13 mmol/L (1.12-1.30); Carboxyhemoglobin (COHb) 1.6 gm% (0.0-3.0); Hemoglobin (Hb) 12.5 g/dL (14.0-18.0); O2 Tension (PaO2) 67.4 mmHg (> 60.0); Potassium - ABG Lab 4.47 mmol/L (3.70-5.30); pH, Arterial 7.37 (7.35-7.45)
[2019-06-04 07:44] LABS: Puncture Site RRAD
[2019-06-04 07:46] LABS: ALV-art Gradient 78.485 (0-20)
[2019-06-04] MEDS: MEROPENEM 1 GM/50 ML 1 GM in Premix Bag 1 BAG IVPB SCH (08:51)
[2019-06-04] MEDS: Famotidine 20 MG TAB PO SCH (08:51)
[2019-06-04] MEDS: Enoxaparin Sodium 30 MG/0.3 ML SYRINGE SC SCH (11:14)
--- NOTE | 2019-06-04 11:19 | PRG ---
DATE OF SERVICE: 06/04/2019 SERVICE: Pulmonary Medicine. INTERVAL HISTORY: The patient is doing great from respiratory standpoint. He is breathing comfortably. He is on mechanical ventilator currently. There are no significant overnight events. His blood pressures have firmed up very nicely. PHYSICAL EXAMINATION: VITAL SIGNS: Afebrile, pulse 115, blood pressure 125/72, respirations 18, saturation 99% currently on 27% FiO2 and a PEEP of 5. GENERAL: The patient is intubated. He is under the influence of some sedation. HEENT: Normocephalic and atraumatic. Sclerae are white. Conjunctivae are pink. Oral mucosa is moist without lesions. LUNGS: Decent air entry. Minimal rhonchi are present, but there is no prolonged expiratory phase or wheezing appreciated. HEART: Normal rate, regular. ABDOMEN: Soft, nontender, nondistended. Bowel sounds are positive. MUSCULOSKELETAL: No cyanosis or clubbing. No pitting in the bilateral lower extremities. NEUROLOGIC: Grossly nonfocal. LABORATORY DATA: WBC 27.5, hemoglobin 12.3, platelets 179,000. Band count remains high at 38%. INR 1.0. PH 7.37, pCO2 of 37, pO2 of 67. Creatinine 2.03 and gently downtrending. BUN 41. Basic metabolic profile is otherwise unremarkable. Magnesium and phosphorous all near the normal. Liver function studies are unremarkable. Blood cultures x2 are growing Proteus mirabilis. ASSESSMENT: 1. Septic shock. 2. Urinary tract infection secondary to Proteus mirabilis. 3. Bacteremia secondary to Proteus mirabilis. 4. Nephrolithiasis with hydronephrosis, status post transurethral stent placement, postop day #1. 5. History of prostate cancer, status post chemotherapy and radiation therapy, currently on maintenance drugs. 6. Acute kidney injury, improving. DISCUSSION AND PLAN: We will need to tailor his antibiotics once his sensitivities result. He will need to remain on antibiotics until after this stone is dealt with downstream in 2 to 3 weeks. At this point, he is clearing his inflammatory profile. His metabolic derangement has improved. His kidney injury is also improving. As such, we will put him on a spontaneous breathing trial, and if he meets criteria , extubation will be considered. Critical Care will follow along. Critical care time: 30 minutes. Job ID: [id number] [facility]
--- NOTE | 2019-06-04 15:55 | PRG ---
DATE OF SERVICE: 06/04/2019 SUBJECTIVE: This is an 83-year-old white male with metastatic prostate cancer, I am seeing in room A7 in the ICU. He had an emergent cysto and left stent placement for an obstructing left ureteral stone. He is still intubated. He is off Levophed. His blood pressure has been stable. He has been making urine. Also, which is a good sign. He looks like he made about a 1000 mL yesterday and made about 340 so far today. He is growing out in his urine Proteus on 2 of 2 blood cultures. Sensitives are pending. He is taking at this point, meropenem. LABORATORY DATA: His lab work, his white count is still greatly elevated at 27,000. It was very low when he came in, so it is better. He has been transfused. His hemoglobin is 12.3. His creatinine is 2.0, which is a little better than it was yesterday. His CO2 was now 23. His urine is clear at this point also. IMPRESSION AND PLAN: Sepsis with Proteus species, most likely from the urine. The urine culture itself is still pending. The blood cultures, which were actually drawn before the urine are positive. The antibiotic that he is on should be covering this organism. He seems to be improving. He is off pressors. His urine output has picked up. His creatinine is actually improved some. He will go ahead at this point, leave the Macario in and we are going to not do bladder irrigation, but we will keep it hooked up, so that we can start bladder irrigation if he starts to have hematuria again. If he gets transferred to the floor this weekend, the three-way port on his catheter can be plugged and he can just go and leave the catheter in over the weekend to check him again on Friday. I am away this weekend. Should Urology consultation be required, Dr. Lagunas is available, but I do not believe he needs to come by and see him unless there is a need for urologic evaluation. Job ID: [id number]
[2019-06-04] MEDS: Fentanyl 100 MCG/2 ML VIAL SLOW IVP PRN ×2 (16:04→20:41)
[2019-06-04] MEDS ORDERED: Ondansetron ODT 4 MG TAB PO PRN (16:59)
[2019-06-04] MEDS ORDERED: Ondansetron PF 4 MG/2 ML Vial IVP PRN (16:59)
--- NOTE | 2019-06-04 18:21 | PDOC.HOSPP ---
- Subjective Encounter Date: 06/04/19 Encounter Time: 18:00 non-verbal Subjective: Patient seen and examined for Sepsis. Confused. Off pressors. Extubated. Failed bedside swallow eval. No overnight events - Objective Vital Signs & Weight: Vital Signs (12 hours) Temp Pulse Resp BP Pulse Ox 06/04/19 15:00 98.5 F 06/04/19 13:10 117 H 22 H 98 06/04/19 12:00 22 H 06/04/19 11:01 116 H 115/61 06/04/19 11:00 98.2 F 06/04/19 10:00 22 H 06/04/19 08:00 15 98 06/04/19 07:49 100 06/04/19 07:00 98.2 F Weight Admit Weight 207 lb 0.225 oz Weight 209 lb 6.4 oz Most Recent Monitor Data Heart Rate from ECG 123 NIBP 123/89 NIBP BP-Mean 100 Respiration from ECG 26 SpO2 96 I&O: 06/03/19 06/04/19 06/05/19 06:59 06:59 06:59 Intake Total 926.7 2243 614 Output Total 2 1000 620 Balance 924.7 1243 -6 Result Diagrams: 06/04/19 04:26 06/04/19 04:26 Additional Labs: Microbiology 06/02/19 22:19 Venous blood - Left Arm Blood Culture - Preliminary Presumptive Proteus mirabilis 06/02/19 21:35 Venous blood - Left Arm Blood Culture - Preliminary Proteus species Radiology Reviewed by me: Yes (CXR - reviewed) EKG Reviewed by me: Yes (Tele ST) Hospitalist ROS - Review of Systems ROS unobtainable: due to mental status - Medication Medications: Active Medications Generic Name Dose Route Start Last Admin Trade Name Freq PRN Reason Stop Dose Admin Albuterol/Ipratropium 3 ml 06/03/19 13:00 06/04/19 13:10 Duoneb NEB 3 ml [id number] DRU Administration Enoxaparin Sodium 30 mg 06/04/19 09:00 06/04/19 11:14 Lovenox SC 30 mg 0900 DRU Administration Famotidine 20 mg 06/03/19 09:00 06/04/19 08:51 Pepcid PO 20 mg 0900 DRU Administration Fentanyl 25 mcg 06/04/19 15:16 06/04/19 16:04 Sublimaze SLOW IVP 25 mcg Q4H PRN Administration Severe Pain (7-10) Hydrocortisone Sodium Succinate 50 mg 06/03/19 07:15 06/04/19 13:28 Solu-Cortef IVP 06/05/19 19:16 50 mg Q6H DRU Administration Sodium Chloride 1,000 mls @ 0 mls/hr 06/03/19 10:30 06/04/19 18:05 1/2 Normal Saline IV 1,000 mls .Q0M DRU Administration KVO Ondansetron HCl 4 mg 06/04/19 16:59 06/04/19 17:42 Zofran IVP 4 mg Q6H PRN Administration Nausea/Vomiting - Exam General Appearance: ill appearing (confused) Respiratory: no wheezes, no rales, no ronchi, normal chest expansion Gastrointestinal: soft, normal bowel sounds, no guarding, no rigidity Gastrointestinal - other findings: azul - gross hematuria Extremities: no cyanosis Neurological - other findings: Psych/Neuro - confused, following commands to some extent Hosp A/P - Plan DVT proph w/lovenox, DVT proph w/SCDs Severe Sepsis/Septic shock due to complicated UTI (POA) Proteus Bacteremia Left ureterolithiasis with obstruction s/p cysto with stent placement KARINA on CKD 2 Lactic acidosis Obesity BMI 31.8 Anemia s/p 1 unit PRBC Par Afib - not anticoag candidate h/o SVT Hypokalemia/Hypomagnesemia - replaced DNR PLAN: Cont Meropenem Add D5NS due to NPO status Cont stress dose steroids AM labs Add IV Metoprolol due to persistent sinus tachycardia 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
[2019-06-04] MEDS ORDERED: Dextrose 5 % And 0.9 % NaCl 1,000 ML IV SCH ×2 (18:30)
[2019-06-04] MEDS ORDERED: Metoprolol Tartrate 5 MG/5 ML VIAL IVP SCH (18:45)
[2019-06-04] MEDS: Meropenem 2 GM, Admixture Fee 1 EACH in Sodium Chloride 0.9% 100 ML IVPB SCH (20:31)
[2019-06-05] MEDS: Fentanyl 100 MCG/2 ML VIAL SLOW IVP PRN ×5 (00:09→23:45)
[2019-06-05] MEDS: Haloperidol Lactate 5 MG/ML VIAL SLOW IVP PRN ×4 (00:10→19:19)
[2019-06-05] MEDS: Metoprolol Tartrate 5 MG/5 ML VIAL IVP SCH ×4 (00:10→17:37)
[2019-06-05] MEDS: Hydrocortisone Sod Succ/PF 100 mg/2 ml Vial IVP SCH ×4 (01:21→17:37)
[2019-06-05] MEDS ORDERED: Furosemide 40 MG/4 ML VIAL SLOW IVP SCH (06:00)
[2019-06-05 06:55] LABS: Band 25 % (5-11); Hemoglobin 12.3 g/dL (14.0-18.0); Lymphocytes 2 % (21-51); MDiff Complete? YES; Mean Corpuscular HGB CONC 32.8 g/dL (32.0-36.0); Mean Corpuscular Hemoglobin 31.1 pg (27.0-31.0); Mean Corpuscular Volume 94.9 fL (78.0-98.0); Mean Platelet Volume 8.4 fL (7.4-10.4); Monocytes 1 % (0-10); Neutrophil 72 % (42-75); Platelet Count 153 thou/uL (130-400); RBC Distribution Width 14.1 % (11.5-14.5); Red Blood Cell (RBC) Count 3.94 mill/uL (4.70-6.10); White Blood Cell (WBC) Count 23.1 thou/uL (4.8-10.8)
[2019-06-05 06:59] LABS: Anion Gap 14 mmol/L (10-20); BUN (Urea Nitrogen) 43 mg/dL (8.4-25.7); Calc. Creatinine Clearance 50 mL/min (70-130); Calcium 8.9 mg/dL (7.8-10.44); Carbon Dioxide 22 mmol/L (23-31); Chloride 111 mmol/L (98-107); Estimated GFR-MDRD 47; Glucose 152 mg/dL (83-110); Magnesium 2.1 mg/dL (1.6-2.6); Potassium 4.2 mmol/L (3.5-5.1); Sodium 143 mmol/L (136-145)
--- NOTE | 2019-06-05 08:15 | PDOC.HOSPP ---
- Subjective Encounter Date: 06/05/19 Encounter Time: 08:14 Subjective: Patient seen and examined of Sepsis. Mentation improving. No overnight events - Objective Vital Signs & Weight: Vital Signs (12 hours) Temp Pulse Resp Pulse Ox 06/05/19 07:49 104 H 22 H 96 06/05/19 04:00 97.4 F L 06/05/19 00:37 110 H 22 H 98 06/05/19 00:00 99.2 F Weight Admit Weight 207 lb 0.225 oz Weight 209 lb 7.026 oz Most Recent Monitor Data Heart Rate from ECG 107 NIBP 144/93 NIBP BP-Mean 110 Respiration from ECG 23 SpO2 95 I&O: 06/04/19 06/05/19 06/06/19 06:59 06:59 06:59 Intake Total 2243 1275 Output Total 1000 1590 Balance 1243 -315 Result Diagrams: 06/05/19 06:20 06/05/19 06:20 EKG Reviewed by me: Yes (Tele ) Hospitalist ROS - Review of Systems ROS unobtainable: due to mental status - Medication Medications: Active Medications Generic Name Dose Route Start Last Admin Trade Name Freq PRN Reason Stop Dose Admin Albuterol/Ipratropium 3 ml 06/03/19 13:00 06/05/19 07:49 Duoneb NEB 3 ml [id number] DRU Administration Enoxaparin Sodium 30 mg 06/04/19 09:00 06/04/19 11:14 Lovenox SC 30 mg 0900 DRU Administration Famotidine 20 mg 06/03/19 09:00 06/04/19 08:51 Pepcid PO 20 mg 0900 DRU Administration Fentanyl 25 mcg 06/04/19 15:16 06/05/19 03:09 Sublimaze SLOW IVP 25 mcg Q4H PRN Administration Severe Pain (7-10) Haloperidol Lactate 2 mg 06/05/19 00:04 06/05/19 05:09 Haldol SLOW IVP 2 mg Q4H PRN Administration Agitation Hydrocortisone Sodium Succinate 50 mg 06/03/19 07:15 06/05/19 06:28 Solu-Cortef IVP 06/05/19 19:16 50 mg Q6H DRU Administration Meropenem 2 gm/ Miscellaneous 100 mls @ 200 mls/hr 06/04/19 20:00 06/04/19 20 :31 Medication 1 each/ Sodium IVPB 100 mls Chloride 0800,1999 DRU Administration Metoprolol Tartrate 2.5 mg 06/04/19 23:59 06/05/19 05:10 Lopressor IVP 2.5 mg Q6HR DRU Administration Ondansetron HCl 4 mg 06/04/19 16:59 06/04/19 17:42 Zofran IVP 4 mg Q6H PRN Administration Nausea/Vomiting - Exam General Appearance: NAD Heart: RRR, no gallops, no rubs Respiratory: no wheezes, no rales, no ronchi, normal chest expansion Gastrointestinal: soft, non-tender, non-distended, normal bowel sounds Neurological: no new deficit Neurological - other findings: Following commands to some extent Hosp A/P - Plan continue antibiotics, respiratory therapy, DVT proph w/lovenox, DVT proph w/SCDs Severe Sepsis/Septic shock due to complicated UTI (POA) Proteus Bacteremia Left ureterolithiasis with obstruction s/p cysto with stent placement KARINA on CKD 2 Lactic acidosis Obesity BMI 31.8 Anemia s/p 1 unit PRBC Par Afib - not anticoag candidate h/o SVT Hypokalemia/Hypomagnesemia - replaced DNR PLAN: Cont Meropenem Change IVF D5 1/2 NS Cont stress dose steroids Cont IV Metoprolol Add Clonidine patch 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
[2019-06-05] MEDS: Meropenem 2 GM, Admixture Fee 1 EACH in Sodium Chloride 0.9% 100 ML IVPB SCH ×2 (08:35→20:39)
[2019-06-05] MEDS: Famotidine/PF 20 mg/2ml Vial SLOW IVP SCH (08:36)
[2019-06-05] MEDS: Famotidine 20 MG TAB PO SCH (08:37)
[2019-06-05] MEDS: Enoxaparin Sodium 30 MG/0.3 ML SYRINGE SC SCH (08:37)
[2019-06-05] MEDS: cloNIDine 0.1mg/24 Hour PATCH TD SCH (08:41)
[2019-06-05] MEDS: Dextrose 5 %-0.45 % NaCl 1,000 ML IV SCH (08:49)
[2019-06-05] MEDS: Acetaminophen 325 MG TAB PO PRN (10:43)
[2019-06-05] MEDS: Lidocaine 5% Patch TD SCH (15:01)
--- NOTE | 2019-06-05 15:06 | PRG ---
DATE OF SERVICE: 06/05/2019 SUBJECTIVE: Allan Jack has no new complaints. He says he is feeling better. He is obviously very weak. Intake and outputs, -315. OBJECTIVE: VITAL SIGNS: Heart rate is 105, blood pressure 120/70, respiratory rate 20s, and oximetry is 97% to 100% on nasal cannula. LUNGS: Clear anteriorly. HEART: Regular rate and rhythm. S1, S2 normal. ABDOMEN: Soft and nontender. EXTREMITIES: Without edema. LABORATORY DATA: White count 23.1 down from 27.5 yesterday, hemoglobin 12.3, and platelets 153. Sodium 143, potassium 4.2, chloride 111, bicarb 22, BUN 43, and creatinine 1.44, improved from 2.03. IMPRESSION: Proteus bacteremia with Proteus urinary tract infection. He appears to be clinically improving. He will move to the intermediate care unit today. We will continue to follow. Job ID: [id number]
[2019-06-05] MEDS ORDERED: Fentanyl 100 MCG/2 ML VIAL SLOW IVP PRN (20:06)
[2019-06-06] MEDS: Metoprolol Tartrate 5 MG/5 ML VIAL IVP SCH ×4 (01:10→17:45)
[2019-06-06] MEDS: Lidocaine Patch Removal 1 EACH TOP SCH ×2 (03:26→21:50)
[2019-06-06] MEDS: Dextrose 5 %-0.45 % NaCl 1,000 ML IV SCH (05:32)
[2019-06-06 06:30] LABS: Anion Gap 12 mmol/L (10-20); BUN (Urea Nitrogen) 43 mg/dL (8.4-25.7); Calc. Creatinine Clearance 63 mL/min (70-130); Calcium 8.9 mg/dL (7.8-10.44); Carbon Dioxide 23 mmol/L (23-31); Chloride 113 mmol/L (98-107); Estimated GFR-MDRD 58; Glucose 116 mg/dL (83-110); Sodium 144 mmol/L (136-145)
[2019-06-06 06:42] LABS: Band 17 % (5-11); Hemoglobin 12.5 g/dL (14.0-18.0); Lymphocytes 8 % (21-51); MDiff Complete? YES; Mean Corpuscular HGB CONC 32.2 g/dL (32.0-36.0); Mean Corpuscular Hemoglobin 30.8 pg (27.0-31.0); Mean Corpuscular Volume 95.6 fL (78.0-98.0); Mean Platelet Volume 8.6 fL (7.4-10.4); Monocytes 8 % (0-10); Neutrophil 67 % (42-75); Platelet Count 139 thou/uL (130-400); RBC Distribution Width 14.1 % (11.5-14.5); Red Blood Cell (RBC) Count 4.05 mill/uL (4.70-6.10); White Blood Cell (WBC) Count 15.4 thou/uL (4.8-10.8)
[2019-06-06] MEDS: Famotidine/PF 20 mg/2ml Vial SLOW IVP SCH ×2 (07:50→07:52)
[2019-06-06] MEDS: Fentanyl 100 MCG/2 ML VIAL SLOW IVP PRN ×3 (07:51→22:03)
[2019-06-06] MEDS: Lidocaine 5% Patch TD SCH (07:51)
[2019-06-06] MEDS: Saccharomyces boulardii 250 MG CAP PO SCH (07:52)
[2019-06-06] MEDS: Famotidine 20 MG TAB PO SCH (07:52)
[2019-06-06] MEDS: Enoxaparin Sodium 30 MG/0.3 ML SYRINGE SC SCH (07:52)
[2019-06-06] MEDS: Meropenem 2 GM, Admixture Fee 1 EACH in Sodium Chloride 0.9% 100 ML IVPB SCH (08:05)
[2019-06-06] MEDS: Haloperidol Lactate 5 MG/ML VIAL SLOW IVP PRN ×2 (09:16→17:45)
--- NOTE | 2019-06-06 12:07 | RAD ---
Portable frontal chest radiograph: 06/06/2019 COMPARISON: 06/02/2019 HISTORY: Short of breath FINDINGS: Stable left vascular catheter. Mild elevation of right hemidiaphragm. Stable enlargement of the cardiac silhouette. Multiple old left-sided rib fractures. Diffuse increased linear interstitial density, stable. Mild interval worsening of right basilar aeration, which may represent volume loss, mild infiltrate, or small volume right pleural fluid. IMPRESSION: Chronic findings as detailed above. Mild interval worsening of right basilar aeration. Th is could signify infiltrate, volume loss, or small volume right pleural fluid.
[2019-06-06] MEDS ORDERED: Furosemide 20 MG/2 ML VIAL SLOW IVP SCH (13:00)
--- NOTE | 2019-06-06 13:50 | PRG ---
DATE OF SERVICE: 06/06/2019 Mr. Jack is in no distress. He sleeps extremely well on BiPAP according to the nursing staff. OBJECTIVE: VITAL SIGNS: Heart rate is 105, blood pressure 106/103, respiratory rate is 18 to 21, oximetry is 99. LUNGS: Clear. HEART: Regular rhythm. ABDOMEN: Soft. EXTREMITIES: Without asymmetry. He has trace edema. LABORATORY DATA: White count 15.4, hemoglobin 12.5, platelets 139. Sodium 144, potassium 4.0, chloride 113, bicarb 23, BUN 43, creatinine 1.19. IMPRESSION: Proteus bacteremia associated with Proteus urinary tract infection. He is still requiring bladder irrigation intermittently. He will continue to use intermittent BiPAP. reviewed a chest radiograph. Films are under penetrated, but is suggestive of just poor inspiratory effort. We will continue to follow. Job ID: [id number]
[2019-06-06] MEDS ORDERED: cefTRIAXone\\ROCEPHIN 2 GM in Sodium Chloride 0.9% 100 ML IVPB SCH (16:00)
--- NOTE | 2019-06-06 16:54 | CON ---
DATE OF CONSULTATION: 06/06/2019 REASON FOR CONSULTATION: Obstructive pyelonephritis with bacteremia and sepsis. HISTORY OF PRESENT ILLNESS: An 83-year-old with history of prostate cancer with bone mets on antiandrogen therapy and also prior supraventricular tachycardia, which required ablation, who was admitted on the because of weakness and lethargy. He had one episode of vomiting. On arrival, he was oriented, had some fever that documented. There was noticeable edema in lower extremities. There had been no chest pain. No back pain. Initial findings remarkable for hypotension. The temperature was 98.6 and O2 saturations were 95. Breath sounds were clear. Heart exam showed tachycardia, but normal heart sounds. Abdomen was distended, but not tender. There was edema in lower extremities +2. Other findings included a white cell count of 25,000, hemoglobin 14, platelets 206,000 with 38% bands. Creatinine was 1.45, GFR 46, and calcium 6.5. Liver profile normal. Troponin 0.3, albumin 2.3, and globulin 2.3. Arterial blood gas on arrival with pH of 7.26, pCO2 of 45, and pO2 of 198. Central line was placed in the left IJ position. Vasopressors were started as well after IV fluids and broad-spectrum antimicrobial coverage, and he was admitted to the intensive care unit with a diagnosis of sepsis, renal insufficiency, and non-ST segment elevation OK. Chest x-ray did not show any abnormalities. CT abdomen and pelvis revealed a left-sided hydronephrosis due to a kidney stone. Urology was consulted, Dr. Mckeon placed a left-sided stent on June 03. The patient was transferred eventually to the [facility] and is currently on meropenem among other medications listed below. The patient is awake. He has a BiPAP mask. Does not appear to be on vasopressors anymore. He seems to be alert and oriented. Follows commands. The patient was complaining of back pain and now has received treatment and pain has resolved. No headaches. Mild shortness of breath. No chest pain. No abdominal pain or diarrhea. No genitourinary symptoms except for Macario catheter. PAST MEDICAL HISTORY: Prostate cancer stage 4, bone mets on antiandrogen therapy. History of gout, COPD, sleep apnea, SVT with ablation, prior prostatectomy as well as cataract surgery, laminectomy in neck and back area. SOCIAL HISTORY: Prior smoking. Currently, chews tobacco. No alcoholic beverage use. FAMILY HISTORY: Noncontributory. ALLERGIES: ASPIRIN, IBUPROFEN, MUCINEX, NAPROXEN, AND GUAIFENESIN. CURRENT MEDICATIONS: 1. DuoNeb. 2. Catapres. 3. Lovenox. 4. Pepcid. 5. Sublimaze. 6. Haldol. 7. Meropenem. 8. Zofran. 9. Florastor. PHYSICAL EXAMINATION: VITAL SIGNS: T-max 98.1, blood pressure 140/90, pulse 112, respirations 19, and O2 saturation 98. Pulse 103. SKIN: Macario catheter. Shallow areas of nodular erythema in the gluteal region. The linear area of ulceration, which appears to be superficial and small, measuring less than 1 cm in the right gluteal region. Left-sided IJ central line and no lymphadenopathy. HEENT: Ocular movements are conjugate. Sclerae white. Pupils are 2 mm and reactive. No jugular vein distention. LUNGS: With diminished breath sounds. No obvious crackles or wheezing. HEART: S1 and S2 diminished heart sounds. No S3. Regular rate. ABDOMEN: Soft. No ascites. No organomegaly or bladder distention. GENITOURINARY: Genital examination was remarkable for a Macario catheter. EXTREMITIES: The patient has 1+ popliteals and dorsalis pedis. 2+ edema in lower extremities. He is able to move extremities on command. Plantar responses are flexor. No clonus. NEUROLOGIC: He is awake, knows his name. He knew he was in the hospital. Answers questions and follows commands. LABORATORY DATA: Followup labs with the sodium 144, creatinine 1.19, AST 42, ALT 27, alkaline phosphatase 85, and albumin 2.6. White cell count is down to 15.4, hemoglobin 12, and platelets 139. Microbiology with Proteus mirabilis with a very broad susceptibility profile except for ampicillin and nitrofurantoin. The organism was retrieved from blood and urine cultures. Influenza antigen was negative for A and B. Chest x-ray with no infiltrates, just chronic findings on arrival, but then the second one demonstrated a mild infiltrate at the base on the right side, probably pleural fluid. ASSESSMENT: 1. Prostate cancer stage 4 on antiandrogen. 2. Obstructive nephrolithiasis, left side with hydronephrosis and urosepsis due to a fairly susceptible strain of Proteus mirabilis with bacteremia, status post stenting of the left side by Dr. Mckeon. DISCUSSION: We will transition the patient to more narrowly target antimicrobial. He will need lithotripsy or some other form of removal of the left-sided stone down the road. Antimicrobial therapy to continue until after the removal of the stone, assuming that the patient will survive this severe infection. Once there is further improvement, then transition to oral antimicrobial therapy, probably quinolone. Again duration of therapy will be until after the removal of the stone and a stent. There is no evidence of other sites of involvement at this point in time. Job ID: [id number] [facility]
--- NOTE | 2019-06-06 18:32 | PDOC.HOSPP ---
- Subjective Encounter Date: 06/06/19 Encounter Time: 12:30 Subjective: pt up in bed more awake. - Objective Vital Signs & Weight: Vital Signs (12 hours) Temp Pulse Pulse Pulse Resp BP BP 06/06/19 16:17 97.2 F L 06/06/19 14:52 100 106 H 136/79 152/97 H 06/06/19 13:53 103 H 19 06/06/19 11:08 97.1 F L 06/06/19 08:00 06/06/19 07:40 96.7 F L Pulse Ox Pulse Ox Pulse Ox 06/06/19 16:17 06/06/19 14:52 96 97 06/06/19 13:53 06/06/19 11:08 06/06/19 08:00 95 06/06/19 07:40 Weight Admit Weight 207 lb 0.225 oz Weight 216 lb 9.6 oz Most Recent Monitor Data Heart Rate from ECG 104 NIBP 125/56 NIBP BP-Mean 79 Respiration from ECG 31 SpO2 98 I&O: 06/05/19 06/06/19 06/07/19 06:59 06:59 06:59 Intake Total 1275 1395 550 Output Total 1590 1875 1350 Balance -315 -480 -800 Result Diagrams: 06/06/19 05:51 06/06/19 05:51 Hospitalist ROS - Review of Systems Respiratory: denies: cough, dry, shortness of breath, hemoptysis, SOB with excertion, pleuritic pain, sputum, wheezing, other Cardiovascular: denies: chest pain, palpitations, orthopnea, paroxysmal noc. dyspnea, edema, light headedness, other Gastrointestinal: denies: nausea, vomiting, abdominal pain, diarrhea, constipation, melena, hematochezia, other - Medication Medications: Active Medications Generic Name Dose Route Start Last Admin Trade Name Freq PRN Reason Stop Dose Admin Acetaminophen 650 mg 06/03/19 01:14 06/05/19 10:43 Tylenol PO 650 mg Q6H PRN Administration Pain Albuterol/Ipratropium 3 ml 06/03/19 13:00 06/06/19 13:53 Duoneb NEB 3 ml [id number] DRU Administration Clonidine 0.1 mg 06/05/19 09:00 06/05/19 08:41 [id number] Patch TD 0.1 mg Q7DAYS DRU Administration Enoxaparin Sodium 30 mg 06/04/19 09:00 06/06/19 07:52 Lovenox SC 30 mg 0900 DRU Administration Famotidine 20 mg 06/03/19 09:00 06/06/19 07:52 Pepcid PO Not Given 09 [facility] Famotidine 20 mg 06/05/19 09:00 06/06/19 07:52 Pepcid SLOW IVP 20 mg DAILY DRU Administration Fentanyl 25 mcg 06/05/19 20:06 06/06/19 15:27 Sublimaze SLOW IVP 25 mcg Q3H PRN Administration Severe Pain (7-10) Haloperidol Lactate 2 mg 06/05/19 00:04 06/06/19 17:45 Haldol SLOW IVP 2 mg Q4H PRN Administration Agitation Lidocaine 1 patch 06/05/19 14:30 06/06/19 07:51 Lidoderm 5% Patch TD 1 patch Q24H DRU Administration Metoprolol Tartrate 2.5 mg 06/04/19 23:59 06/06/19 17:45 Lopressor IVP 2.5 mg Q6HR DRU Administration Miscellaneous Medication 1 each 06/06/19 02:30 06/06/19 03:26 Lidocaine Patch Removal TOP 1 each 0230 [facility] Administration Ondansetron HCl 4 mg 06/04/19 16:59 06/04/19 17:42 Zofran IVP 4 mg Q6H PRN Administration Nausea/Vomiting Saccharomyces Boulardii 250 mg 06/06/19 09:00 06/06/19 07:52 Florastor PO Not Given DAILY DRU - Exam Neck: negative: supple, symmetric, no JVD, no thyromegaly, no lymphadenopathy, no carotid bruit, JVD Heart: negative: RRR, no murmur, no gallops, no rubs, normal peripheral pulses, irregular, diminshed peripheral pulses, murmur present, II/IV, III/IV Respiratory: negative: CTAB, no wheezes, no rales, no ronchi, normal chest expansion, no tachypnea, normal percussion, rales, rhonchi, tachypneic, wheezes Gastrointestinal: negative: soft, non-tender, non-distended, normal bowel sounds , no palpable masses, no hepatomegaly, no splenomegaly, no bruit, no guarding, no rigidity, tender to palpation, distended, diminished bowl sounds, voluntary guarding Hosp A/P (1) Septic shock Code(s): A41.9 - SEPSIS, UNSPECIFIED ORGANISM; R65.21 - SEVERE SEPSIS WITH SEPTIC SHOCK Status: Acute (2) Bacteremia Code(s): R78.81 - BACTEREMIA Status: Acute (3) Hydronephrosis, left Code(s): N13.30 - UNSPECIFIED HYDRONEPHROSIS Status: Acute - Plan pt's mentation has improved, will get mri thoracic, curbsided neruosurgery. abx changed per ID. will monitor. pt is improving. will need snf.
[2019-06-06] MEDS: cefTRIAXone\\ROCEPHIN 2 GM in Sodium Chloride 0.9% 100 ML IVPB SCH (20:27)
[2019-06-07] MEDS: Metoprolol Tartrate 5 MG/5 ML VIAL IVP SCH ×2 (00:38→06:09)
[2019-06-07] MEDS: Fentanyl 100 MCG/2 ML VIAL SLOW IVP PRN ×3 (01:04→12:02)
[2019-06-07 05:22] LABS: Anion Gap 11 mmol/L (10-20); BUN (Urea Nitrogen) 42 mg/dL (8.4-25.7); Calc. Creatinine Clearance 64 mL/min (70-130); Calcium 8.9 mg/dL (7.8-10.44); Carbon Dioxide 30 mmol/L (23-31); Chloride 113 mmol/L (98-107); Estimated GFR-MDRD 58; Glucose 104 mg/dL (83-110); Potassium 3.8 mmol/L (3.5-5.1); Sodium 150 mmol/L (136-145)
[2019-06-07 05:24] LABS: Band 4 % (5-11); Eosinophils 3 % (0-10); Hemoglobin 12.7 g/dL (14.0-18.0); Lymphocytes 13 % (21-51); MDiff Complete? YES; Mean Corpuscular HGB CONC 32.4 g/dL (32.0-36.0); Mean Corpuscular Hemoglobin 31.2 pg (27.0-31.0); Mean Corpuscular Volume 96.5 fL (78.0-98.0); Mean Platelet Volume 8.9 fL (7.4-10.4); Monocytes 11 % (0-10); Neutrophil 68 % (42-75); Platelet Count 149 thou/uL (130-400); RBC Distribution Width 13.9 % (11.5-14.5); Reactive Lymphocytes 1 % (0-10); Red Blood Cell (RBC) Count 4.07 mill/uL (4.70-6.10); White Blood Cell (WBC) Count 11.1 thou/uL (4.8-10.8)
[2019-06-07] MEDS: Famotidine/PF 20 mg/2ml Vial SLOW IVP SCH (07:46)
[2019-06-07] MEDS: Saccharomyces boulardii 250 MG CAP PO SCH (07:46)
[2019-06-07] MEDS: Acetaminophen 325 MG TAB PO PRN (07:46)
[2019-06-07] MEDS: Famotidine 20 MG TAB PO SCH (07:47)
[2019-06-07] MEDS: Enoxaparin Sodium 30 MG/0.3 ML SYRINGE SC SCH (07:47)
--- NOTE | 2019-06-07 10:18 | PDOC.HOSPP ---
- Subjective Encounter Date: 06/07/19 Encounter Time: 12:00 Subjective: Patient sleeping comfortably on BIPAP right now. Having intermittent spasms of pain from bladder that last a couple minutes and resolve spontaneously, happens 5-10 times per hour. - Objective Vital Signs & Weight: Vital Signs (12 hours) Temp Pulse Resp Pulse Ox 06/07/19 08:00 100 06/07/19 07:38 97.3 F L 06/07/19 07:36 118 H 28 H 100 06/07/19 03:37 97.4 F L 06/07/19 00:56 94 22 H 100 06/07/19 00:53 95 18 99 06/06/19 23:24 97.2 F L Weight Admit Weight 207 lb 0.225 oz Weight 221 lb 1.6 oz Most Recent Monitor Data Heart Rate from ECG 120 NIBP 162/86 NIBP BP-Mean 111 Respiration from ECG 23 SpO2 99 I&O: 06/06/19 06/07/19 06/08/19 06:59 06:59 06:59 Intake Total 1395 550 350 Output Total 1875 1350 Balance -480 -800 350 Result Diagrams: 06/07/19 04:13 06/07/19 04:13 Hospitalist ROS - Review of Systems Constitutional: denies: fever, chills Respiratory: denies: cough, shortness of breath Cardiovascular: denies: chest pain, palpitations, orthopnea Gastrointestinal: reports: abdominal pain. denies: nausea, vomiting, diarrhea, constipation - Medication Medications: Active Medications Generic Name Dose Route Start Last Admin Trade Name Freq PRN Reason Stop Dose Admin Acetaminophen 650 mg 06/03/19 01:14 06/07/19 07:46 Tylenol PO 650 mg Q6H PRN Administration Pain Albuterol/Ipratropium 3 ml 06/03/19 13:00 06/07/19 07:36 Duoneb NEB 3 ml [id number] DRU Administration Clonidine 0.1 mg 06/05/19 09:00 06/05/19 08:41 [id number] Patch TD 0.1 mg Q7DAYS DRU Administration Enoxaparin Sodium 30 mg 06/04/19 09:00 06/07/19 07:47 Lovenox SC 30 mg 0900 DRU Administration Famotidine 20 mg 06/03/19 09:00 06/07/19 07:47 Pepcid PO Not Given 0900 [facility] Famotidine 20 mg 06/05/19 09:00 06/07/19 07:46 Pepcid SLOW IVP 20 mg DAILY DRU Administration Fentanyl 25 mcg 06/05/19 20:06 06/07/19 07:46 Sublimaze SLOW IVP 25 mcg Q3H PRN Administration Severe Pain (7-10) Haloperidol Lactate 2 mg 06/05/19 00:04 06/06/19 17:45 Haldol SLOW IVP 2 mg Q4H PRN Administration Agitation Ceftriaxone Sodium 2 gm/ 100 mls @ 200 mls/hr 06/06/19 21:00 06/06/19 20:27 Sodium Chloride IVPB 100 mls Q24HR DRU Administration Lidocaine 1 patch 06/05/19 14:30 06/06/19 07:51 Lidoderm 5% Patch TD 1 patch Q24H DRU Administration Metoprolol Tartrate 2.5 mg 06/04/19 23:59 06/07/19 06:09 Lopressor IVP 2.5 mg Q6HR DRU Administration Miscellaneous Medication 1 each 06/06/19 02:30 06/06/19 21:50 Lidocaine Patch Removal TOP 1 each 0230 DRU Administration Ondansetron HCl 4 mg 06/04/19 16:59 06/04/19 17:42 Zofran IVP 4 mg Q6H PRN Administration Nausea/Vomiting Saccharomyces Boulardii 250 mg 06/06/19 09:00 06/07/19 07:46 Florastor PO 250 mg DAILY DRU Administration - Exam General Appearance: NAD General - other findings: brething easily on the BiPAP, very sleepy right now Heart: RRR, no murmur, no gallops, no rubs Respiratory: CTAB, no wheezes, no rales Gastrointestinal: soft, non-tender, non-distended, normal bowel sounds Musculoskeletal: normal tone Psychiatric: normal affect Psychiatric - other findings: sleepy, arousable and following commands Hosp A/P (1) Bacteremia Code(s): R78.81 - BACTEREMIA Status: Acute (2) Septic shock Code(s): A41.9 - SEPSIS, UNSPECIFIED ORGANISM; R65.21 - SEVERE SEPSIS WITH SEPTIC SHOCK Status: Acute (3) Obstructive nephropathy Code(s): N13.8 - OTHER OBSTRUCTIVE AND REFLUX UROPATHY Status: Acute (4) Hydronephrosis, left Code(s): N13.30 - UNSPECIFIED HYDRONEPHROSIS Status: Acute Plan: left sided, s/p stent (5) Prostate cancer metastatic to multiple sites Code(s): C61 - MALIGNANT NEOPLASM OF PROSTATE Status: Chronic (6) Hematuria Code(s): R31.9 - HEMATURIA, UNSPECIFIED Status: Acute (7) Acute renal failure Status: Resolved (8) Thoracic compression fracture Code(s): S22.000A - WEDGE COMPRESSION FRACTURE OF UNSP THORACIC VERTEBRA, INIT Status: Acute - Plan Obstructive uropathy s/p stent placement Septic shock resolved Proteus Pyelonephritis and Bacteremia- on Rocephin, appreciate Dr. Knott' imput , will need abx until stone taken care of Bladder spasms- will try small dose of oxybutinin Respiratory failure- off vent, sleeping well with Bipap, appreciate Dr. Fair's assistance Renal failure resolved with fluids, treatment of sepsis T11 compression fracture- spoke with Allan Wilder, after looking at the images of MRI with Dr. Don they believe this to be degenerative, not infectious. 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 Patient cleared to walk with PT. Only needs brace if pain uncontrolled. DVT prophylaxis- on Lovenox low dose, will increase with resolved renal failure
[2019-06-07] MEDS: Lidocaine 5% Patch TD SCH (10:42)
[2019-06-07] MEDS: Haloperidol Lactate 5 MG/ML VIAL SLOW IVP PRN (10:43)
[2019-06-07] MEDS: cloNIDine 0.1mg/24 Hour PATCH TD SCH (10:43)
[2019-06-07] MEDS ORDERED: Metoprolol Tartrate 25 MG TAB PO SCH (10:45)
[2019-06-07] MEDS ORDERED: Furosemide 40 MG/4 ML VIAL SLOW IVP SCH (10:45)
--- NOTE | 2019-06-07 10:48 | PRG ---
DATE OF SERVICE: 06/07/2019 SERVICE: Pulmonary Medicine. INTERVAL HISTORY: The patient is doing really well from respiratory standpoint. Oxygen requirements have improved. He likes using the BiPAP at night. He has a CPAP at home, but does not use it. Otherwise, there has been no interval change to his condition. PHYSICAL EXAMINATION: VITAL SIGNS: Afebrile, pulse 120, blood pressure 162/86, respirations 23, and saturation 99%, currently on 2 L nasal cannula. GENERAL: The patient is awake and alert, in no apparent distress. LUNGS: Decent air entry with dependent crackles. No rhonchi or wheezing appreciated. HEART: Normal rate, regular. ABDOMEN: Soft, nontender, and nondistended. Bowel sounds are positive. MUSCULOSKELETAL: No cyanosis or clubbing. There is diffuse 1 to 2+ pitting throughout. NEUROLOGIC: Grossly nonfocal. LABORATORY DATA: WBC 11.1, hemoglobin 12.7, and platelets 149,000. Sodium 150. Basic metabolic profile is otherwise unremarkable. Creatinine 1.20. Magnesium 2.1. Cystoscopy is growing Proteus mirabilis, which is a fairly sensitive organism. Blood cultures are growing a very similar species, also fairly sensitive. ASSESSMENT: 1. Septic shock. 2. Urinary tract infection secondary to Proteus mirabilis. 3. Bacteremia secondary to Proteus mirabilis. 4. Nephrolithiasis with hydronephrosis, status post transurethral stent placement. 5. History of prostate cancer, status post chemotherapy and radiation therapy. 6. Acute kidney injury, resolved. 7. Delirium. DISCUSSION AND PLAN: We will continue our mobilization efforts. He remains volume up and his blood pressures are up. As such, we will continue to diurese him. His sodium has gone up. As such, we will also need to introduce some free water. I would like for him to remain in the IMCU one more day while we continue our mobilization efforts. Job ID: [id number] [facility]
--- NOTE | 2019-06-07 11:32 | MRI ---
MRI thoracic spine noncontrast: DATE: 06/07/2019 HISTORY: 83-year-old male with T11 compression fracture found on CT of abdomen and pelvis of 06/03/2019 FINDINGS: There is a broad thin band of signal abnormality involving the anterior two thirds of the inferior en dplate of T11. The inferior portion is T1 and T2 hypointense. Abutting the superior aspect of this, there is a band of T2 and STIR hyperintensity consistent with marrow edema. Review of the recent CT d emonstrates that this area consists of a thin broad band of gas density in the endplate bone, but no overall loss of height of the vertebral body. Furthermore, there is no edema in the adjacent preve rtebral space. There is vacuum disc phenomenon at T11-12. There are also Modic type II changes and prominent Schmorl's node at the superior endplate of T12, wi th mild anterior wedging of the T12 vertebral body. There are mild to moderate discogenic degenerative changes throughout the thoracic spine. At T1-2 and T2-3, there are central and bilateral paracentral shallow focal disc herniations which abut the ventral surface of the spinal cord, causing mild central spinal canal stenosis. At the posterior superior aspect of the T4 vertebral body at midline, there is an approximately 1 x 0 .8 cm intraosseous lesion that is T1 hypointense and slightly STIR hyperintense. This corresponds to increased uptake on bone scan of 12/02/2018, and is consistent with a metastatic lesion, demonstrat e to be osteoblastic on CT of 02/22/2018. Incidentally, the highly increased uptake in the manubrium of the sternum on the bone scan of 12/02/2018, is demonstrated in retrospect to be a nondisplaced frac ture on the CT of 02/22/2018, rather than a metastasis. Overall bone marrow signal is slightly diffusely heterogeneous throughout the thoracic spine, consist ent with senescent marrow changes. No syrinx or any significant intramedullary signal abnormality within the thoracic spinal cord. At T10-11 there is moderate central spinal canal stenosis due to lig amentum flavum thickening and diffuse disc bulge. There is also high-grade bilateral neural foraminal stenosis at that level. IMPRESSION: 1. Changes at the inferior endplate of T11. On the CT, the linear transverse lucency actually represe nts gas that has originated from the adjacent vacuum disc phenomenon of the T11-12 intervertebral disc space, into the bone, through micro defects at the inferior endplate of T11, of indeterminate ag e. 2. 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 3. Diffuse thoracic spondylosis. 4. Small shallow disc herniations at T1-T2 and T2-3
[2019-06-07] MEDS: Dextrose 5% in Water 1,000 ML IV SCH (12:07)
[2019-06-07] MEDS ORDERED: Oxybutynin 5 MG TAB PO SCH (13:30)
--- NOTE | 2019-06-07 13:59 | PRG ---
DATE OF SERVICE: 06/07/2019 This patient has been admitted out of the ICU to the step-down unit. He is in B5. His vital signs are stable. He is now extubated. His urine is clear today, although the nurses said that he has been having some problems with intermittent gross hematuria, so he does have bladder irrigation set up, which they can turn on if need be. He has had adequate urine output the last couple of days. His white count is now normal. Hemoglobin is 12.7. Creatinine is normal at 1.2. He grew out Proteus in the urine and the blood. He is still on ceftriaxone for this. Hopefully, the next couple of days would be well enough to get his Macario catheter out. We will need to take care of the stone in the future, probably need to wait a couple weeks to get the strength back and self back. Continue to follow along with you in regard to his care. Job ID: [id number]
[2019-06-07] MEDS ORDERED: HYDROcodone/Acetaminophen 5/325 mg Tablet PO PRN (16:22)
[2019-06-07] MEDS: Metoprolol Tartrate 25 MG TAB PO SCH (21:24)
[2019-06-07] MEDS: cefTRIAXone\\ROCEPHIN 2 GM in Sodium Chloride 0.9% 100 ML IVPB SCH (21:24)
[2019-06-07] MEDS: Oxybutynin 5 MG TAB PO SCH (21:25)
[2019-06-07] MEDS: HYDROcodone/Acetaminophen 5/325 mg Tablet PO PRN (21:35)
[2019-06-08] MEDS: Dextrose 5% in Water 1,000 ML IV SCH ×2 (01:46→15:25)
[2019-06-08] MEDS: Lidocaine Patch Removal 1 EACH TOP SCH (03:27)
[2019-06-08 04:08] LABS: Phosphorus 2.9 mg/dL (2.3-4.7)
[2019-06-08 04:10] LABS: Anion Gap 10 mmol/L (10-20); BUN (Urea Nitrogen) 38 mg/dL (8.4-25.7); Calc. Creatinine Clearance 70 mL/min (70-130); Calcium 8.7 mg/dL (7.8-10.44); Carbon Dioxide 33 mmol/L (23-31); Chloride 109 mmol/L (98-107); Estimated GFR-MDRD 64; Glucose 127 mg/dL (83-110); Magnesium 1.8 mg/dL (1.6-2.6); Potassium 3.4 mmol/L (3.5-5.1); Sodium 149 mmol/L (136-145)
[2019-06-08] MEDS: HYDROcodone/Acetaminophen 5/325 mg Tablet PO PRN ×2 (05:53→15:17)
[2019-06-08] MEDS: Furosemide 40 MG/4 ML VIAL SLOW IVP SCH (05:54)
--- NOTE | 2019-06-08 09:28 | PDOC.HOSPP ---
- Subjective Encounter Date: 06/08/19 Encounter Time: 11:50 Subjective: Patient with less frequent bladder spasms, only once per day per family at bedside. - Objective Vital Signs & Weight: Vital Signs (12 hours) Temp Pulse Resp Pulse Ox 06/08/19 08:00 100 06/08/19 07:53 103 H 17 100 06/08/19 07:22 96.2 F L 06/08/19 03:46 98.3 F 06/08/19 00:43 92 16 94 L 06/07/19 23:43 98.9 F Weight Admit Weight 207 lb 0.225 oz Weight 214 lb 12.8 oz Most Recent Monitor Data Heart Rate from ECG 101 NIBP 172/94 NIBP BP-Mean 120 Respiration from ECG 41 SpO2 100 I&O: 06/07/19 06/08/19 06/09/19 06:59 06:59 06:59 Intake Total 550 2800 Output Total 1350 3850 Balance -800 -1050 Result Diagrams: 06/07/19 04:13 06/08/19 03:07 Hospitalist ROS - Review of Systems Constitutional: denies: fever, chills Respiratory: denies: cough, shortness of breath Cardiovascular: denies: chest pain Gastrointestinal: reports: abdominal pain. denies: vomiting - Medication Medications: Active Medications Generic Name Dose Route Start Last Admin Trade Name Freq PRN Reason Stop Dose Admin Acetaminophen 650 mg 06/03/19 01:14 06/07/19 07:46 Tylenol PO 650 mg Q6H PRN Administration Pain Hydrocodone Bitart/Acetaminophen 1 tab 06/07/19 16:22 06/08/19 05:53 [place] 5/325 PO 1 tab Q4H PRN Administration Mild-Moderate Pain (1-5) Albuterol/Ipratropium 3 ml 06/03/19 13:00 06/08/19 07:53 Duoneb NEB 3 ml [id number] DRU Administration Clonidine 0.1 mg 06/05/19 09:00 06/07/19 10:43 Urjlzhgt-Kbx-6 Patch TD 0.1 mg Q7DAYS DRU Administration Enoxaparin Sodium 30 mg 06/04/19 09:00 06/07/19 07:47 Lovenox SC 30 mg 0900 DRU Administration Famotidine 20 mg 06/03/19 09:00 06/07/19 07:47 Pepcid PO Not Given 0900 [facility] Fentanyl 25 mcg 06/05/19 20:06 06/07/19 12:02 Sublimaze SLOW IVP 25 mcg Q3H PRN Administration Severe Pain (7-10) Furosemide 40 mg 06/08/19 06:00 06/08/19 05:54 Lasix SLOW IVP 40 mg 0600 DRU Administration Haloperidol Lactate 2 mg 06/05/19 00:04 06/07/19 10:43 Haldol SLOW IVP 2 mg Q4H PRN Administration Agitation Ceftriaxone Sodium 2 gm/ 100 mls @ 200 mls/hr 06/06/19 21:00 06/07/19 21:24 Sodium Chloride IVPB 100 mls Q24HR DRU Administration Dextrose/Water 1,000 mls @ 75 mls/hr 06/07/19 10:45 06/08/19 01:46 D5w IV 1,000 mls .[id number] DRU Administration Lidocaine 1 patch 06/05/19 14:30 06/07/19 10:42 Lidoderm 5% Patch TD 1 patch Q24H DRU Administration Metoprolol Tartrate 25 mg 06/07/19 21:00 06/07/19 21:24 Lopressor PO 25 mg BID DRU Administration Miscellaneous Medication 1 each 06/06/19 02:30 06/08/19 03:27 Lidocaine Patch Removal TOP 1 each 0230 DRU Administration Ondansetron HCl 4 mg 06/04/19 16:59 06/04/19 17:42 Zofran IVP 4 mg Q6H PRN Administration Nausea/Vomiting Oxybutynin Chloride 2.5 mg 06/07/19 21:00 06/07/19 21:25 Ditropan PO 2.5 mg BID DRU Administration Saccharomyces Boulardii 250 mg 06/06/19 09:00 06/07/19 07:46 Florastor PO 250 mg DAILY DRU Administration - Exam General Appearance: NAD ENT: moist mucosa Heart: RRR, no murmur, no gallops, no rubs Respiratory: CTAB, no wheezes, no rales, no ronchi Gastrointestinal: soft, non-tender, non-distended, normal bowel sounds Psychiatric: normal affect Psychiatric - other findings: murmuring, not able to communicate clearly Hosp A/P (1) Bacteremia Code(s): R78.81 - BACTEREMIA Status: Acute (2) Septic shock Code(s): A41.9 - SEPSIS, UNSPECIFIED ORGANISM; R65.21 - SEVERE SEPSIS WITH SEPTIC SHOCK Status: Acute (3) Obstructive nephropathy Code(s): N13.8 - OTHER OBSTRUCTIVE AND REFLUX UROPATHY Status: Acute (4) Hydronephrosis, left Code(s): N13.30 - UNSPECIFIED HYDRONEPHROSIS Status: Acute (5) Prostate cancer metastatic to multiple sites Code(s): C61 - MALIGNANT NEOPLASM OF PROSTATE Status: Chronic (6) Hematuria Code(s): R31.9 - HEMATURIA, UNSPECIFIED Status: Acute (7) Acute renal failure Status: Resolved (8) Thoracic compression fracture Code(s): S22.000A - WEDGE COMPRESSION FRACTURE OF UNSP THORACIC VERTEBRA, INIT Status: Acute - Plan Obstructive uropathy s/p stent placement Septic shock resolved Proteus Pyelonephritis and Bacteremia- on Rocephin, appreciate Dr. Knott' imput , will need abx until stone taken care of Bladder spasms- improved with small dose oxybutinin Respiratory failure- off vent, sleeping well with Bipap, appreciate Dr. Fair's assistance Renal failure resolved with fluids, treatment of sepsis T11 compression fracture- spoke with Allan Wilder, after looking at the images of MRI with Dr. Don they believe this to be degenerative, not infectious. 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 Patient cleared to walk with PT. Only needs brace if pain uncontrolled. DVT prophylaxis- on Lovenox low dose, will increase with resolved renal failure
[2019-06-08] MEDS ORDERED: Potassium Chloride 20 MEQ TAB PO SCH ×2 (09:30→16:15)
[2019-06-08] MEDS: Famotidine 20 MG TAB PO SCH (10:20)
[2019-06-08] MEDS: Metoprolol Tartrate 25 MG TAB PO SCH ×2 (10:20→20:35)
[2019-06-08] MEDS: Oxybutynin 5 MG TAB PO SCH ×2 (10:20→20:35)
[2019-06-08] MEDS: Enoxaparin Sodium 30 MG/0.3 ML SYRINGE SC SCH (10:20)
[2019-06-08] MEDS: Saccharomyces boulardii 250 MG CAP PO SCH (10:21)
--- NOTE | 2019-06-08 13:17 | PRG ---
DATE OF SERVICE: 06/07/2019 SUBJECTIVE: The patient is off the BiPAP mask. He is a little bit confused, does not appear in distress. OBJECTIVE: VITAL SIGNS: His T-max was 99.3, blood pressure 160/80, heart rate 104, little bit tachypneic. I's and O's have been negative for the past 3 days. HEENT: Ocular movements conjugate. LUNGS: With coarse breath sounds. HEART: S1, S2, regular rate. ABDOMEN: Soft. Indwelling Macario catheter. Diffuse weakness. Plantar responses are flexor. LABORATORY DATA: Sodium 149, creatinine 1.2. White cell count 11.1, platelets 149, hemoglobin 12.7. Cultures as noted previously. The patient had a thoracic spine MRI which showed metastatic disease. ASSESSMENT AND DISCUSSION: Prostate cancer, stage IV, on antiandrogen, obstructive nephrolithiasis with pyelonephritis and bacteremia due to Proteus mirabilis, on Rocephin with improvement. The patient has had a stenting and will eventually need lithotripsy. Duration of therapy until after the stone is removed, maybe transition to oral antimicrobial therapy either Bactrim or more likely a quinolone once he is ready for discharge planning. Job ID: [id number]
[2019-06-08] MEDS: Lidocaine 5% Patch TD SCH (15:26)
[2019-06-08] MEDS ORDERED: Magnesium 2 GM/50 ML 2 GM in Premix Bag 1 BAG IVPB SCH (16:30)
--- NOTE | 2019-06-08 16:38 | PRG ---
DATE OF SERVICE: 06/08/2019 SERVICE: Pulmonary Medicine. INTERVAL HISTORY: The patient is doing fine from respiratory standpoint. Breathing comfortably. He denies any current chest discomfort, nausea or vomiting. He is able to stand without much assistance yesterday. Otherwise, there has been no change to his condition. PHYSICAL EXAMINATION: VITAL SIGNS: Afebrile, pulse 105, blood pressure 168/89, saturation 100%, currently on 2 L nasal cannula. GENERAL: The patient is awake and alert, in no apparent distress. LUNGS: Wonderful air entry. No prolonged expiratory phase or wheezing present. HEART: Normal rate, regular. ABDOMEN: Soft, nontender, nondistended, bowel sounds are positive. MUSCULOSKELETAL: No cyanosis or clubbing. There is no pitting in the bilateral lower extremities. NEUROLOGIC: Grossly nonfocal. LABORATORY DATA: WBC 11.1, hemoglobin 12.7, platelets 149,000. Sodium downtrending to 149, potassium 3.4. Bicarb 33. Potassium 3.4. Creatinine downtrending to 1.0, glucose 127. Magnesium 1.8, phosphorus 2.9. ASSESSMENT: 1. Acute hypoxic respiratory failure secondary to volume resuscitation. 2. Septic shock. 3. Urinary tract infection secondary to Proteus mirabilis. 4. Bacteremia secondary to Proteus mirabilis. 5. Nephrolithiasis with hydronephrosis, status post transurethral stent placement. 6. History of prostate cancer, status post chemotherapy and radiation therapy. 7. Acute kidney injury, resolved. 8. Delirium. DISCUSSION/PLAN: We will continue diuresing the patient down to euvolemia. He is fast approaching this. We will also continue giving him a little bit of free water to dilute down our sodium. Potassium and magnesium will be replaced today. Pulmonary/Critical Care will follow. From my perspective, he is stable for discharge from the hospital from a strictly hemodynamic and respiratory perspective and would likely benefit from a brief stay at a assisted facility. Job ID: [id number] [facility]
--- NOTE | 2019-06-08 17:35 | PRG ---
DATE OF SERVICE: 06/08/2019 The patient is still in B5. His vital signs are stable. He has had looks like good urine output. His urine got a little pink tinged, slightly bloody when he was doing physical therapy today. He has started physical therapy, stood up today, but was with some difficulty and he could not do it very long, so he certainly is in need of physical therapy. He has good urine output. His creatinine is 1.1. He is still on IV antibiotics. His urine currently now looks just slight pink discoloration, most of it is yellow. Leave the catheter in for a few days until he starts to get some strength back and then get it out. We will need to treat the stone, probably not next week, but probably the week after with ureteroscopy and laser lithotripsy. I will set that up through my office. Job ID: [id number]
[2019-06-08] MEDS: cefTRIAXone\\ROCEPHIN 2 GM in Sodium Chloride 0.9% 100 ML IVPB SCH (20:55)
[2019-06-09] MEDS: Lidocaine Patch Removal 1 EACH TOP SCH (02:30)
[2019-06-09 04:02] LABS: Anion Gap 12 mmol/L (10-20); BUN (Urea Nitrogen) 31 mg/dL (8.4-25.7); Calc. Creatinine Clearance 77 mL/min (70-130); Calcium 8.6 mg/dL (7.8-10.44); Carbon Dioxide 34 mmol/L (23-31); Chloride 106 mmol/L (98-107); Estimated GFR-MDRD 74; Glucose 116 mg/dL (83-110); Potassium 4.1 mmol/L (3.5-5.1); Sodium 148 mmol/L (136-145)
[2019-06-09] MEDS: Furosemide 40 MG/4 ML VIAL SLOW IVP SCH (05:42)
[2019-06-09] MEDS: Dextrose 5% in Water 1,000 ML IV SCH ×2 (05:42→17:19)
[2019-06-09] MEDS: HYDROcodone/Acetaminophen 5/325 mg Tablet PO PRN (05:48)
[2019-06-09] MEDS: Metoprolol Tartrate 25 MG TAB PO SCH ×2 (09:11→21:43)
[2019-06-09] MEDS: Enoxaparin Sodium 30 MG/0.3 ML SYRINGE SC SCH (09:11)
[2019-06-09] MEDS: Saccharomyces boulardii 250 MG CAP PO SCH (09:11)
[2019-06-09] MEDS: Oxybutynin 5 MG TAB PO SCH ×2 (09:11→21:43)
[2019-06-09] MEDS: Famotidine 20 MG TAB PO SCH (09:11)
--- NOTE | 2019-06-09 09:43 | PDOC.HOSPP ---
- Subjective Encounter Date: 06/09/19 Encounter Time: 11:10 Subjective: Patient doing a bit better today. Still a bit confused, family thinks from [place]. Would like to try switch to Tramadol which has worked better for him in the past. - Objective Vital Signs & Weight: Vital Signs (12 hours) Temp Pulse Resp Pulse Ox 06/09/19 07:22 97.2 F L 06/09/19 07:00 103 H 23 H 06/09/19 00:03 98 16 100 Weight Admit Weight 207 lb 0.225 oz Weight 218 lb 9.6 oz Most Recent Monitor Data Heart Rate from ECG 101 NIBP 118/65 NIBP BP-Mean 82 Respiration from ECG 18 SpO2 100 I&O: 06/08/19 06/09/19 06/10/19 06:59 06:59 06:59 Intake Total 2800 2870 Output Total 3850 2950 Balance -1050 -80 Result Diagrams: 06/07/19 04:13 06/09/19 03:33 Hospitalist ROS - Review of Systems Constitutional: denies: fever, chills Respiratory: denies: cough, shortness of breath Cardiovascular: denies: chest pain, palpitations Gastrointestinal: denies: nausea, vomiting, abdominal pain - Medication Medications: Active Medications Generic Name Dose Route Start Last Admin Trade Name Freq PRN Reason Stop Dose Admin Acetaminophen 650 mg 06/03/19 01:14 06/07/19 07:46 Tylenol PO 650 mg Q6H PRN Administration Pain Hydrocodone Bitart/Acetaminophen 1 tab 06/07/19 16:22 06/09/19 05:48 [place] 5/325 PO 1 tab Q4H PRN Administration Mild-Moderate Pain (1-5) Albuterol/Ipratropium 3 ml 06/03/19 13:00 06/09/19 07:00 Duoneb NEB 3 ml [id number] DRU Administration Clonidine 0.1 mg 06/05/19 09:00 06/07/19 10:43 Itawldkm-Fyk-4 Patch TD 0.1 mg Q7DAYS DRU Administration Enoxaparin Sodium 30 mg 06/04/19 09:00 06/09/19 09:11 Lovenox SC 30 mg 0900 DRU Administration Famotidine 20 mg 06/03/19 09:00 06/09/19 09:11 Pepcid PO 20 mg 0900 DRU Administration Fentanyl 25 mcg 06/05/19 20:06 06/07/19 12:02 Sublimaze SLOW IVP 25 mcg Q3H PRN Administration Severe Pain (7-10) Furosemide 40 mg 06/08/19 06:00 06/09/19 05:42 Lasix SLOW IVP 40 mg 0600 DRU Administration Haloperidol Lactate 2 mg 06/05/19 00:04 06/07/19 10:43 Haldol SLOW IVP 2 mg Q4H PRN Administration Agitation Ceftriaxone Sodium 2 gm/ 100 mls @ 200 mls/hr 06/06/19 21:00 06/08/19 20:55 Sodium Chloride IVPB 100 mls Q24HR DRU Administration Dextrose/Water 1,000 mls @ 75 mls/hr 06/07/19 10:45 06/09/19 05:42 D5w IV 1,000 mls .[id number] DRU Administration Lidocaine 1 patch 06/05/19 14:30 06/08/19 15:26 Lidoderm 5% Patch TD 1 patch Q24H DRU Administration Metoprolol Tartrate 25 mg 06/07/19 21:00 06/09/19 09:11 Lopressor PO 25 mg BID DRU Administration Miscellaneous Medication 1 each 06/06/19 02:30 06/09/19 02:30 Lidocaine Patch Removal TOP 1 each 0230 DRU Administration Ondansetron HCl 4 mg 06/04/19 16:59 06/04/19 17:42 Zofran IVP 4 mg Q6H PRN Administration Nausea/Vomiting Oxybutynin Chloride 2.5 mg 06/07/19 21:00 06/09/19 09:11 Ditropan PO 2.5 mg BID DRU Administration Saccharomyces Boulardii 250 mg 06/06/19 09:00 06/09/19 09:11 Florastor PO 250 mg DAILY DRU Administration - Exam General Appearance: NAD, awake alert ENT: moist mucosa Heart: RRR, no murmur, no gallops, no rubs Respiratory: CTAB, no wheezes, no rales, no ronchi Gastrointestinal: soft, non-tender, non-distended, normal bowel sounds Psychiatric: normal affect, normal behavior Psychiatric - other findings: language still muttering, hard to understand Hosp A/P (1) Bacteremia Code(s): R78.81 - BACTEREMIA Status: Acute (2) Septic shock Code(s): A41.9 - SEPSIS, UNSPECIFIED ORGANISM; R65.21 - SEVERE SEPSIS WITH SEPTIC SHOCK Status: Acute (3) Obstructive nephropathy Code(s): N13.8 - OTHER OBSTRUCTIVE AND REFLUX UROPATHY Status: Acute (4) Hydronephrosis, left Code(s): N13.30 - UNSPECIFIED HYDRONEPHROSIS Status: Acute (5) Prostate cancer metastatic to multiple sites Code(s): C61 - MALIGNANT NEOPLASM OF PROSTATE Status: Chronic (6) Hematuria Code(s): R31.9 - HEMATURIA, UNSPECIFIED Status: Acute (7) Acute renal failure Status: Resolved (8) Thoracic compression fracture Code(s): S22.000A - WEDGE COMPRESSION FRACTURE OF UNSP THORACIC VERTEBRA, INIT Status: Acute - Plan Obstructive uropathy s/p stent placement- will need laser lithotripsy in uro clinic in 2 weeks Septic shock resolved Proteus Pyelonephritis and Bacteremia- on Rocephin, appreciate Dr. Knott' imput , will need abx until stone taken care of, can transition to oral omnicef at discharge Bladder spasms- improved with small dose oxybutinin Respiratory failure- off vent, sleeping well with Bipap, appreciate Dr. Fair's assistance Renal failure resolved with fluids, treatment of sepsis T11 compression fracture- spoke with Allan Wilder, after looking at the images of MRI with Dr. Don they believe this to be degenerative, not infectious. 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 Patient cleared to walk with PT. Only needs brace if pain uncontrolled. DVT prophylaxis- on Lovenox low dose, will increase with resolved renal failure Can get patient out of IMCU, patient ready for transition to rehab vs. SNF
[2019-06-09] MEDS: Acetaminophen 325 MG TAB PO PRN (13:01)
[2019-06-09] MEDS ORDERED: traMADol HCl 50 MG TAB PO PRN ×2 (13:05)
[2019-06-09] MEDS: Lidocaine 5% Patch TD SCH (17:19)
--- NOTE | 2019-06-09 18:40 | PRG ---
DATE OF SERVICE: 06/09/2019 SERVICE: Pulmonary Medicine. INTERVAL HISTORY: The patient's strength and mentation are improving a little bit. He remains a touch confused. That being said, he is much more alert. There has been no interval change to his condition. Otherwise, he is returning to his usual state of health, albeit weak. He is able to get up on 3 occasions yesterday. We are going to continue mobilization efforts today. PHYSICAL EXAMINATION: VITAL SIGNS: Afebrile, pulse 96, blood pressure 135/80, respirations 18, and saturation 95% on 2 L nasal cannula. GENERAL: The patient is awake and alert, in no apparent distress. LUNGS: Decent air entry with no prolonged expiratory phase. Minimal dependent crackles are present. HEART: Normal rate, regular. ABDOMEN: Soft, nontender, nondistended. Bowel sounds are positive. MUSCULOSKELETAL: No cyanosis or clubbing. There is 1+ pitting in bilateral lower extremities. NEUROLOGIC: Grossly nonfocal. LABORATORY DATA: Sodium 148, bicarb 34, creatinine 0.97, with a BUN that has improved to 31. Basic metabolic profile is otherwise unremarkable. Proteus mirabilis is growing in blood cultures in 2 out of 2. Urine culture is negative. ASSESSMENT: 1. Acute hypoxic respiratory failure secondary to volume resuscitation, improving. 2. Septic shock, resolved. 3. Urinary tract infection and bacteremia secondary to Proteus mirabilis. 4. Nephrolithiasis with hydronephrosis, status post transurethral stent placement. 5. History of prostate cancer, status post chemoradiation therapy. 6. Acute kidney injury, resolved. 7. Delirium. DISCUSSION AND PLAN: The patient will get another dose of Lasix today. At that point, I think he will be close enough to euvolemia that we will be able to stop. I will also interrupt his free water. Pulmonary will continue to follow in this location, but from my perspective, he is stable for transition to the floor. Please call with additional questions or concerns through time. Job ID: [id number]
[2019-06-09] MEDS: cefTRIAXone\\ROCEPHIN 2 GM in Sodium Chloride 0.9% 100 ML IVPB SCH (21:54)
[2019-06-10] MEDS: Lidocaine Patch Removal 1 EACH TOP SCH (03:25)
[2019-06-10 03:27] VITALS: TEMP 97.4
[2019-06-10 03:36] LABS: #Eosinphils 0.3 thou/uL (0.0-0.7); #Lymphocytes 1.5 thou/uL (1.20-3.40); #Neutrophils 5.8 thou/uL (1.40-6.50); %Basophils 0.5 % (0.0-1.0); %Monocytes 11.3 % (0.0-10.0); %Neutrophils 67.3 % (42.0-75.0); Hemoglobin 13.7 g/dL (14.0-18.0); Mean Corpuscular Hemoglobin 31.2 pg (27.0-31.0); Mean Corpuscular Volume 97.5 fL (78.0-98.0); Mean Platelet Volume 8.4 fL (7.4-10.4); Platelet Count 280 thou/uL (130-400); RBC Distribution Width 13.4 % (11.5-14.5); Red Blood Cell (RBC) Count 4.39 mill/uL (4.70-6.10); White Blood Cell (WBC) Count 8.6 thou/uL (4.8-10.8)
[2019-06-10 03:52] LABS: Anion Gap 12 mmol/L (10-20); BUN (Urea Nitrogen) 26 mg/dL (8.4-25.7); Calc. Creatinine Clearance 75 mL/min (70-130); Calcium 8.5 mg/dL (7.8-10.44); Carbon Dioxide 37 mmol/L (23-31); Chloride 99 mmol/L (98-107); Estimated GFR-MDRD 70; Glucose 111 mg/dL (83-110); Sodium 144 mmol/L (136-145)
[2019-06-10] MEDS: Furosemide 40 MG/4 ML VIAL SLOW IVP SCH (06:41)
[2019-06-10] MEDS: Dextrose 5% in Water 1,000 ML IV SCH (06:41)
[2019-06-10] MEDS: Saccharomyces boulardii 250 MG CAP PO SCH (09:36)
[2019-06-10] MEDS: Oxybutynin 5 MG TAB PO SCH (09:36)
[2019-06-10] MEDS: Metoprolol Tartrate 25 MG TAB PO SCH (09:36)
[2019-06-10] MEDS: Famotidine 20 MG TAB PO SCH (09:36)
[2019-06-10] MEDS: Enoxaparin Sodium 30 MG/0.3 ML SYRINGE SC SCH (09:37)
--- NOTE | 2019-06-10 09:56 | PDOC.HOSPP ---
- Subjective Encounter Date: 06/10/19 Encounter Time: 10:30 Subjective: Patient without complaints. Sitting up in chair. More alert and talkative today. - Objective Vital Signs & Weight: Vital Signs (12 hours) Temp Pulse Resp Pulse Ox 06/10/19 07:32 98 17 06/10/19 03:26 97.4 F L 06/09/19 23:21 96 18 95 Weight Admit Weight 207 lb 0.225 oz Weight 220 lb 1.6 oz Most Recent Monitor Data Heart Rate from ECG 103 NIBP 164/83 NIBP BP-Mean 110 Respiration from ECG 21 SpO2 93 I&O: 06/09/19 06/10/19 06/11/19 06:59 06:59 06:59 Intake Total 2870 240 Output Total 2950 1950 Balance -80 -1710 Result Diagrams: 06/10/19 03:13 06/10/19 03:13 Hospitalist ROS - Review of Systems Constitutional: denies: fever, chills Respiratory: denies: cough, shortness of breath Cardiovascular: denies: chest pain, orthopnea Gastrointestinal: denies: nausea, vomiting, abdominal pain Genitourinary: denies: dysuria, hematuria - Medication Medications: Active Medications Generic Name Dose Route Start Last Admin Trade Name Freq PRN Reason Stop Dose Admin Acetaminophen 650 mg 06/03/19 01:14 06/09/19 13:01 Tylenol PO 650 mg Q6H PRN Administration Pain Albuterol/Ipratropium 3 ml 06/03/19 13:00 06/10/19 07:32 Duoneb NEB 3 ml [id number] DRU Administration Clonidine 0.1 mg 06/05/19 09:00 06/07/19 10:43 [id number] Patch TD 0.1 mg [id number] DRU Administration Enoxaparin Sodium 30 mg 06/04/19 09:00 06/10/19 09:37 Lovenox SC 30 mg 0900 DRU Administration Famotidine 20 mg 06/03/19 09:00 06/10/19 09:36 Pepcid PO 20 mg 0900 DRU Administration Fentanyl 25 mcg 06/05/19 20:06 06/07/19 12:02 Sublimaze SLOW IVP 25 mcg Q3H PRN Administration Severe Pain (7-10) Furosemide 40 mg 06/08/19 06:00 06/10/19 06:41 Lasix SLOW IVP Not Given 0600 [facility] Haloperidol Lactate 2 mg 06/05/19 00:04 06/07/19 10:43 Haldol SLOW IVP 2 mg Q4H PRN Administration Agitation Ceftriaxone Sodium 2 gm/ 100 mls @ 200 mls/hr 06/06/19 21:00 06/09/19 21:54 Sodium Chloride IVPB Not Given Q24HR [facility] Dextrose/Water 1,000 mls @ 75 mls/hr 06/07/19 10:45 06/10/19 06:41 D5w IV Not Given .[id number] DRU Lidocaine 1 patch 06/05/19 14:30 06/09/19 17:19 Lidoderm 5% Patch TD 1 patch Q24H DRU Administration Metoprolol Tartrate 25 mg 06/07/19 21:00 06/10/19 09:36 Lopressor PO 25 mg BID DRU Administration Miscellaneous Medication 1 each 06/06/19 02:30 06/10/19 03:25 Lidocaine Patch Removal TOP 1 each 0230 DRU Administration Ondansetron HCl 4 mg 06/04/19 16:59 06/04/19 17:42 Zofran IVP 4 mg Q6H PRN Administration Nausea/Vomiting Oxybutynin Chloride 2.5 mg 06/07/19 21:00 06/10/19 09:36 Ditropan PO 2.5 mg BID DRU Administration Saccharomyces Boulardii 250 mg 06/06/19 09:00 06/10/19 09:36 Florastor PO 250 mg DAILY DRU Administration Tramadol HCl 100 mg 06/09/19 13:05 06/09/19 18:19 Ultram PO 100 mg Q6H PRN Administration Moderate to Severe Pain (6-10) - Exam General Appearance: NAD, awake alert ENT: moist mucosa Heart: RRR, no murmur, no gallops, no rubs Respiratory: CTAB, no wheezes, no rales, no ronchi Gastrointestinal: soft, non-tender, non-distended, normal bowel sounds Psychiatric: normal affect, normal behavior, A&O x 3 Hosp A/P (1) Bacteremia Code(s): R78.81 - BACTEREMIA Status: Acute (2) Septic shock Code(s): A41.9 - SEPSIS, UNSPECIFIED ORGANISM; R65.21 - SEVERE SEPSIS WITH SEPTIC SHOCK Status: Acute (3) Obstructive nephropathy Code(s): N13.8 - OTHER OBSTRUCTIVE AND REFLUX UROPATHY Status: Acute (4) Hydronephrosis, left Code(s): N13.30 - UNSPECIFIED HYDRONEPHROSIS Status: Acute (5) Prostate cancer metastatic to multiple sites Code(s): C61 - MALIGNANT NEOPLASM OF PROSTATE Status: Chronic (6) Hematuria Code(s): R31.9 - HEMATURIA, UNSPECIFIED Status: Acute (7) Acute renal failure Status: Resolved (8) Thoracic compression fracture Code(s): S22.000A - WEDGE COMPRESSION FRACTURE OF UNSP THORACIC VERTEBRA, INIT Status: Acute - Plan Obstructive uropathy s/p stent placement- will need laser lithotripsy in uro clinic in 2 weeks Septic shock resolved Proteus Pyelonephritis and Bacteremia- on Rocephin, appreciate Dr. Knott' imput , will need abx until stone taken care of switching to Cipro 500mg BID until stone taken care of, at least 2 weeks Bladder spasms- improved with small dose oxybutinin Respiratory failure- off vent, sleeping well with Bipap, appreciate Dr. Fair's assistance Renal failure resolved with fluids, treatment of sepsis T11 compression fracture- spoke with Allan Wilder, after looking at the images of MRI with Dr. Don they believe this to be degenerative, not infectious. 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 Patient cleared to walk with PT. Only needs brace if pain uncontrolled. DVT prophylaxis- on Lovenox low dose, will increase with resolved renal failure Can get patient out of IMCU, patient ready for transition to [facility] once accepted
[2019-06-10 11:01] VITALS: BP 119/77
--- NOTE | 2019-06-10 12:25 | PRG ---
DATE OF SERVICE: 06/10/2019 This patient is afebrile. Vital signs are stable. He is much more awake and alert with his catheter draining a clear urine. He is not on continuous bladder irrigation. His urine output has been good. His lab work all looks good apart from being a little bit anemic. Creatinine is 1. He will go home on antibiotics with the catheter . I do not think the catheter should be left in past Friday or Friday of this coming week at rehab. At that point, hopefully, he will be strong enough to be able to stand to urinate. We will look at doing his surgery probably the following week. Job ID: [id number]
[2019-06-10 14:27] VITALS: BMI 33.4
--- NOTE | 2019-06-10 14:50 | PRG ---
DATE OF SERVICE: 06/10/2019 SERVICE: Pulmonary Medicine. INTERVAL HISTORY: The patient is doing fine from respiratory standpoint. Breathing comfortable on room air. Denies any current chest discomfort. Macario catheter is in place. There has been no interval change to his condition. Mentation lopez, he is improving slowly. PHYSICAL EXAMINATION: VITAL SIGNS: Afebrile, pulse 108, blood pressure 111/53, respirations 26, saturations 99%, currently on room air. GENERAL: The patient is awake and alert, in no apparent distress. LUNGS: Decent air entry with no prolonged expiratory phase or wheezing present. HEART: Normal rate, regular. ABDOMEN: Soft, nontender, nondistended. Bowel sounds are positive. MUSCULOSKELETAL: No cyanosis or clubbing. There is 1+ pitting in bilateral lower extremities. NEUROLOGIC: Grossly nonfocal. LABORATORY DATA: CBC is completely unremarkable. Sodium 144, bicarbonate 37 and up trending. Basic metabolic profile is otherwise unremarkable. ASSESSMENT: 1. Acute hypoxic respiratory failure secondary to volume resuscitation, improved. 2. Septic shock, resolved. 3. Urinary tract infection and bacteremia secondary to Proteus mirabilis. 4. Nephrolithiasis with hydronephrosis, status post transurethral stent placement. 5. History of prostate cancer, status post chemoradiation therapy. 6. Acute kidney injury, resolved. 7. Delirium. DISCUSSION AND PLAN: The patient is stable for transition out of the hospital. Pulmonary will continue to follow, intermittently if he remains in this location. Job ID: [id number]
[2019-06-10] MEDS: Lidocaine 5% Patch TD SCH (16:21)
--- NOTE | 2019-06-11 00:36 | DIS ---
DATE OF ADMISSION: 06/03/2019 DATE OF DISCHARGE: 06/10/2019 PRIMARY CARE PHYSICIAN: Dr. Pepe Carr MD. REASON FOR ADMISSION: Septic shock. DIAGNOSES AT DISCHARGE: 1. Urinary tract infection and bacteremia from Proteus. 2. Septic shock, resolved. 3. Obstructive nephropathy. 4. Left hydronephrosis. 5. Prostate cancer metastatic to multiple sites. 6. Acute renal failure, resolved. 7. Thoracic compression fracture, stable. 8. Chronic obstructive pulmonary disease. 9. Obstructive sleep apnea. 10. Gout. PROCEDURES: 1. CT of the abdomen and pelvis without contrast showing a high-grade obstructing left uropathy due to a large 10.5 x 5 x 7.5 mm calculus in the left mid ureter, also with a fracture of the inferior endplate of T11, some other chronic changes. 2. Retrograde IVP showing a left-sided ureteral stent placed with contrast in the left pelvicalyceal system. 3. MRI of the thoracic spine without contrast showing changes in the inferior endplate of T11. 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 4. Cystoscopy with left stent placement and left retrograde pyelogram as above. CONSULTATIONS: 1. Urology, Dr. Mckeon. 2. Pulmonology, Dr. Prater. 3. Infectious Disease, Dr. Knott. SUMMARY OF HOSPITAL COURSE: This is an 83-year-old white male with a history of metastatic prostate cancer on hormone therapy, who came in with generalized weakness and generalized body aches and pains. He came into the emergency room and was found to be in septic shock. He was treated with antibiotics and fluids. He did have CT scan with above results. Dr. Mckeon was consulted and he placed a stent. The patient did grow back Proteus from his blood in urine. It was sensitive to cephalosporins and fluoroquinolones. The patient did well with Rocephin. He had resolution of his fevers, resolution of his body aches. He responded well to the fluid resuscitation with resolution of his acute renal failure. The patient did have a little confusion after the sepsis. However, this improved especially with switching him off stronger pain medicines. He did have some bladder spasms as well that were pre-frequent and painful. These resolved with a small dose of Oxybutynin. The patient was stabilized and switched over to oral antibiotics and he was cleared for discharge to swing bed in [place]. DISCHARGE MANAGEMENT: Discharged to swing bed in [facility]. ACTIVITY: As tolerated. DIET: Regular diet with a textured ground extra sauce and gravy, nectar thick liquids by small sips by cup, but no straws. THERAPY: Occupational, Physical, And Speech therapy. FOLLOWUP: Follow up with Dr. Mckeon in 2 weeks. His office will set up the appointment and with Dr. Carr as needed. DISCHARGE MEDICATIONS: 1. Ciprofloxacin 500 mg twice a day until the stone is removed and at least 2 weeks. 2. Acetaminophen as needed. 3. Clonidine patch 0.1 mg transdermal q.7 days. 4. Lovenox subcu daily. 5. Famotidine 20 mg daily. 6. DuoNeb as needed. 7. Lidocaine patch transdermal q.24 hours. 8. Metoprolol tartrate 25 mg twice a day. 9. Zofran as needed. 10. Ditropan 2.5 mg twice a day. 11. Florastor 250 mg daily. 12. Tramadol as needed for pain. 13. Zytiga 1000 mg daily with prednisone. 14. Allopurinol 300 mg daily. 15. Calcium carbonate plus vitamin D one tablet daily. 16. Cetirizine 10 mg daily. 17. Multivitamin daily. 18. Fish oil 1000 mg daily. 19. Prednisone 10 mg daily. 20. Sennosides/docusate sodium one tablet at night. 21. Effexor XR 150 mg daily. TIME SPENT: Arranging the details of this discharge took 35 minutes. Job ID: [id number]
== END 2019-06-10 16:38 | disposition short-term general hospital (02) | DRG 853 ==
LOC: ERS 21:11 → CCU 06-03 01:55 → IMCU/EMU 06-05 10:06
PROVIDERS: ADMIT Internal Medicine; ATTEND Internal Medicine
PROC: 0T778DZ Dilation of Left Ureter with Intraluminal Device, Via Natural or Artificial Opening Endoscopic (ICD-10-PCS; principal; 2019-06-03)
PROC: BT1F1ZZ Fluoroscopy of Left Kidney, Ureter and Bladder using Low Osmolar Contrast (ICD-10-PCS; 2019-06-03)
PROC: 30233N1 Transfusion of Nonautologous Red Blood Cells into Peripheral Vein, Percutaneous Approach (ICD-10-PCS; 2019-06-03)
DX: A41.89 Other specified sepsis (principal); R65.21 Severe sepsis with septic shock; I21.4 Non-ST elevation (NSTEMI) myocardial infarction; J96.01 Acute respiratory failure with hypoxia; N13.8 Other obstructive and reflux uropathy; C79.89 Secondary malignant neoplasm of other specified sites; C79.51 Secondary malignant neoplasm of bone; N17.9 Acute kidney failure, unspecified; M48.54XA Collapsed vertebra, not elsewhere classified, thoracic region, initial encounter for fracture; E87.2 Acidosis; D61.818 Other pancytopenia; N13.6 Pyonephrosis; E87.6 Hypokalemia; E83.42 Hypomagnesemia; Z66 Do not resuscitate; J44.9 Chronic obstructive pulmonary disease, unspecified; G47.33 Obstructive sleep apnea (adult) (pediatric); M10.9 Gout, unspecified; J45.909 Unspecified asthma, uncomplicated; R40.2132 Coma scale, eyes open, to sound, at arrival to emergency department; D64.9 Anemia, unspecified; I48.0 Paroxysmal atrial fibrillation; N32.89 Other specified disorders of bladder; R40.2362 Coma scale, best motor response, obeys commands, at arrival to emergency department; R40.2242 Coma scale, best verbal response, confused conversation, at arrival to emergency department; F17.210 Nicotine dependence, cigarettes, uncomplicated; Z88.8 Allergy status to other drugs, medicaments and biological substances; Z79.01 Long term (current) use of anticoagulants; Z85.46 Personal history of malignant neoplasm of prostate
CPT/HCPCS: 36415; 36416; 36430; 36556; 51703; 71045; 72146; 74176; 74420; 80048; 80053; 82274; 82330; 82553; 82607; 82728; 82746; 82803; 82805; 83010; 83540; 83550; 83605; 83615; 83735; 84100; 84484; 85025; 85046; 85060; 85610; 86850; 86900; 86901; 87040; 87077; 87086; 87149; 87186; 87804; 93005; 94002; 94003; 94640; 94660; 96361; 96365; 96366; 96367; 96368; 96375; 99292; C1758; J0692; J0696; J1630; J1650; J1720; J1940; J2185; J2405; J2704; J3010; J3370; J3475; J3480; J3490; J7050; J7620; P9016; S0028

== ENCOUNTER 2019-06-22 09:21 | Day surgery (SDC) | payer MEDICARE, BC ==
[2019-06-21 11:55] VITALS: BMI 31.7
[2019-06-22] MEDS ORDERED: cefTRIAXone\\ROCEPHIN 2 GM VIAL ONE (11:04)
[2019-06-22] MEDS ORDERED: Sodium Chloride 0.9% 100 ML ONE (11:04)
[2019-06-22] MEDS ORDERED: Iothalamate Meglumine 60% 50 ML VIAL FS ONE (11:43)
[2019-06-22] MEDS ORDERED: Fentanyl 100 MCG/2 ML VIAL ONE (11:47)
[2019-06-22] MEDS ORDERED: Glycopyrrolate 0.2 MG/ML 5 ML SYRINGE ONE (11:53)
[2019-06-22] MEDS ORDERED: PROPOFOL 200 MG/20 ML VIAL ONE (11:53)
[2019-06-22] MEDS ORDERED: PHENYLEPHRINE-NS 100 MCG/ML 10 ML SYRINGE ONE (11:53)
[2019-06-22] MEDS ORDERED: Succinylcholine Chloride 20 MG/ML 10 ml SYRINGE FS ONE (11:53)
[2019-06-22] MEDS ORDERED: Lidocaine 1% PF 5 ML VIAL ONE (11:53)
[2019-06-22] MEDS ORDERED: Rocuronium Bromide 10 MG/ML (10ML VIAL) ONE (11:53)
[2019-06-22] MEDS ORDERED: Ondansetron PF 4 MG/2 ML Vial ONE (11:53)
--- NOTE | 2019-06-22 13:57 | RAD ---
EXAM: XR IVP Retrograde PROVIDED CLINICAL HISTORY: Left ureteral stent replacement. COMPARISON: 06/03/2019 FINDINGS/IMPRESSION: Software Support Technician image demonstrates left ureteral stent in place unchanged in position compared to prior study. Multiple surgical clips overlie the pelvis. Cystoscope overlies the midline of the pelvis. Subsequent image demonstrates left retrograde urogram demonstrating mild prominence of the left renal collecting system. Final image demonstrates replacement of the left ureteral stent with proximal portion in the left renal pelvis and distal portion not completely deployed on provided image. Correl ation with intraoperative findings is recommended.
--- NOTE | 2019-06-22 18:30 | OP ---
DATE OF PROCEDURE: 06/22/2019 PREOPERATIVE DIAGNOSIS: Left ureteral stone. POSTOPERATIVE DIAGNOSIS: Left ureteral stone. PROCEDURES PERFORMED: Cystoscopy, discontinue left stent, left flexible ureteroscopy with laser lithotripsy and stone retrieval and stent replacement. ANESTHESIA: General. ESTIMATED BLOOD LOSS: Less than 25 mL. FINDINGS: He had probably a 9 to 10 mm left mid ureteral stone. It was fragmented with the holmium laser. The shell of it was very soft and fragmented very well. It had a dense nidus core that we broke up into small pieces and the largest of these pieces that we actually removed and sent off for analysis. DRAINS PLACED: A 6 x 24 Polaris double-J stent with a string attached. DESCRIPTION OF PROCEDURE: Obtained written and verbal consent from the patient. After receiving IV antibiotics, he was taken to the operating suite. He was placed in a supine position on the table and given a general anesthetic oral intubation. PlexiPulses were placed on his lower extremities and turned on. He was then placed in the dorsal lithotomy position. He was sterilely prepped and draped for cystoscopy. Fluoroscopy head was brought down in position. Lei Maker film was obtained. He could see the stone in mid ureter. Cystoscopy was performed with a 22-Italian sheath. He did have some distal urethral stenosis, but we were able to get the scope through this well lubricated without much difficulty. The distal end of the indwelling double-J stent was grasped and brought out through the urethral meatus. A guidewire was fed up, the stone did not move its position. We then brought in a dual lumen ureteral catheter and passed it up to just below the stone and then passed the blue Stiff guidewire through its additional ports with 2 wires both traversing up the ureter to the upper collecting system. The dual-lumen catheter was removed. Over the blue Stiff wire, we brought in a ureteral sheath that was relatively short ureteral sheath. We had obturator sheath that passed over the blue guidewire up to just below the stone. The obturator and wire were removed leaving the sheath in place. A small caliber flexible ureteroscope was brought in, passed through the sheath and up to the level of the stone. A small caliber holmium laser fiber was brought in and used to break up the stone into smaller and smaller pieces. The shell of it was very soft and really pretty much disintegrated into tiny fragments. The stone in the center that was darker, and we were able to break that up into small pieces, leaving one piece was a little bit larger that we grasped with a basket and removed. We did make a few swipes of some of the more brittle shell but when you grasped with a basket, they would just break when you closed the basket. We looked all the way up into the renal collecting system and he had nothing, but some very small fragments that were washed up there. It looked at the ureter in its entirety as we backed the sheath out. There was no other abnormality noted. Our guidewire was backloaded through our cystoscope. A 5-Italian Pollack catheter was placed up in the region of the renal pelvis. The guidewire was removed. We placed about 15 to 20 mL of contrast through this that showed a normal collecting system without extravasation, filling defect and contrast flowing freely down into the bladder. The guidewire was replaced through the open-ended catheter. The open-ended catheter was removed, and the stent was placed over the guidewire pushing up into place with aid of a pusher, so that its proximal end coiled in the renal pelvis and its distal end coiled in the bladder when the wire was removed. Length of string attached to distal end of the stent was left coming out through the urethral meatus and it was cut, so it came out about an inch and a half from the urethral meatus. The patient was taken out of the dorsal lithotomy position, awakened, extubated, and taken by stretcher to recovery room. Job ID: [id number]
== END 2019-06-22 15:15 | disposition home or self-care (01) ==
LOC: SDC 09:21
PROVIDERS: ATTEND Urology
PROC: 0TF48ZZ Fragmentation in Left Kidney Pelvis, Via Natural or Artificial Opening Endoscopic (ICD-10-PCS; principal; 2019-06-22)
PROC: 0T778DZ Dilation of Left Ureter with Intraluminal Device, Via Natural or Artificial Opening Endoscopic (ICD-10-PCS; 2019-06-22)
DX: N20.0 Calculus of kidney (principal)
CPT/HCPCS: 52356; 74420; 82365; 88300; C1758; J0696; J3010; J3490

== ENCOUNTER 2019-06-30 08:49 | Outpatient (CLI) | payer MEDICARE, BC ==
--- NOTE | 2019-07-02 14:57 | RAD ---
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 Dysphagia, unspecified. Dysphagia, pha ryngeal phase. Feeding difficulties. Gastroesophageal reflux disease without esophagitis. COMPARISON: None Fluoroscopy: Time-21 seconds Dose-0.446 mGy meter squared FINDINGS: This examination was performed by speech pathology, and video is provided for evaluation. The patient was administered varying consistencies of barium during the exam. There is premature spill of contrast into the vallecula with all consistencies prior to initiation of the swallowing mechanism. T race aspiration was observed with thin liquid barium. A 12.5 mm barium tablet was administered during the exam with transient holdup of the barium tablet in the most proximal upper esophagus with eventual passage after additional swallowing. Postoperative changes are partially visualized in the cervical spine. IMPRESSION: Episodes of trace aspiration with thin liquid barium.
== END 2019-06-30 08:50 | disposition home or self-care (01) ==
PROVIDERS: ATTEND Family Medicine
DX: I69.191 Dysphagia following nontraumatic intracerebral hemorrhage (principal); R13.13 Dysphagia, pharyngeal phase; R63.3 Feeding difficulties
CPT/HCPCS: 74230

== ENCOUNTER 2019-12-17 14:25 | Inpatient (IN) | payer MEDICARE, BC, OTHER ==
[2019-12-17] MEDS ORDERED: Vancomycin 1 GM/200 ML BAG ONE (15:17)
[2019-12-17 16:31] LABS: SARS-CoV-2 NAA Rapid Test Not Detected (NotDetected)
[2019-12-17] MEDS ORDERED: Senokot S 8.6-50 MG TAB PO PRN (17:26)
[2019-12-17] MEDS ORDERED: Ondansetron ODT 4 MG TAB PO PRN (17:26)
[2019-12-17] MEDS ORDERED: hydrALAZINE 20 MG/ML VIAL SLOW IVP PRN (17:29)
[2019-12-17 17:58] LABS: Hemoglobin A1c 5.9 % (4.0-6.0)
[2019-12-17 18:11] LABS: ALT (SGPT) 9 U/L (8-55); AST (SGOT) 13 U/L (5-34); Albumin 3.3 g/dL (3.4-4.8); Alkaline Phosphatase 50 U/L (40-110); Anion Gap 13 mmol/L (10-20); BUN (Urea Nitrogen) 30 mg/dL (8.4-25.7); Bilirubin, Total 0.6 mg/dL (0.2-1.2); Calc. Creatinine Clearance 0 mL/min (70-130); Carbon Dioxide 28 mmol/L (23-31); Chloride 101 mmol/L (98-107); Cholesterol 157 mg/dl (< 200 Desired); Estimated GFR-MDRD 49; Globulin 2.2 g/dL (2.4-3.5); Glucose 111 mg/dL (83-110); HDL Cholesterol 39 mg/dL (>60 Neg Risk); LDL Cholesterol, Calculated 60 mg/dL; Potassium 3.7 mmol/L (3.5-5.1); Protein, Total 5.5 g/dL (5.8-8.1); Sodium 138 mmol/L (136-145); Triglycerides 290 mg/dL (Less than 150)
[2019-12-17 18:12] LABS: Hemoglobin 13.1 g/dL (14.0-18.0); Mean Corpuscular HGB CONC 32.6 g/dL (32.0-36.0); Mean Platelet Volume 7.6 fL (7.4-10.4); Platelet Count 188 thou/uL (130-400); RBC Distribution Width 12.4 % (11.5-14.5); Red Blood Cell (RBC) Count 3.97 mill/uL (4.70-6.10); White Blood Cell (WBC) Count 11.9 thou/uL (4.8-10.8)
--- NOTE | 2019-12-17 18:23 | HP ---
CHIEF COMPLAINT: Nausea, vomiting, and diarrhea. HISTORY OF PRESENT ILLNESS: An 84-year-old male with a history of deconditioning and obstructive uropathy, followed with Dr. Mckeon, completed his antibiotic course, went to the rehab, which he finished in month of July/August, presenting today with a nausea, vomiting, and diarrhea. He had intermittent emesis for the last 10 days and diarrhea last 3 days. Complained of abdominal pain, but he did not have any fever. He was tachycardic initially with white count of 13.9 as well as lactic acid of 2.6. Sepsis protocol initiated at [facility], where he presented today. His UA and chest x-ray were quite benign. CT of the abdomen and pelvis showed some atelectasis and some abnormality at the perivertebral L1-L2 area. Because of the sepsis trigger, he received cefepime at [facility] and vancomycin here at the [facility] along with the IV fluid. The patient is ruled out for COVID. Blood cultures and urine cultures scheduled even though urinalysis is negative. The patient will be admitted in the telemetry with inpatient status due to sepsis without known etiology. During my interview, the patient is able to relate some of the incidents. He still has ongoing emesis. His stool is mostly loose. No episode of emesis here in the ER. He denied any fever, recent chills, or productive cough. He denies any blood in the urine or stool. No headache, blurriness, tingling, or numbness in his extremities. REVIEW OF SYSTEMS: Rest of the review of systems are negative. PAST MEDICAL HISTORY: 1. Left hydronephrosis/obstructive uropathy with renal stone causing acute renal failure and pyelonephritis in June 2019. 2. Dementia. 3. COPD. 4. Obstructive sleep apnea. 5. History of urinary tract infection with Proteus mirabilis. 6. Thoracic compression fracture in the past and it is stable. 7. History of CHF and it is compensated. 8. Gout. MEDICATIONS: 1. Calcium carbonate with vitamin D daily. 2. Fish oil daily. 3. Lasix 20 mg daily. 4. Lopressor 25 mg twice a day. 5. Effexor 150 mg daily. 6. Allopurinol 300 mg daily. 7. Pepcid 20 mg daily. This medication list is from the previous system in July 2019, it is not updated yet. SOCIAL HISTORY: The patient does not smoke or drink alcohol. FAMILY HISTORY: Noncontributory. PHYSICAL EXAMINATION: VITAL SIGNS: His temperature is 99.2, pulse 96, blood pressure is 129/59, saturating 97% on room air. GENERAL: The patient is alert, oriented, not in acute distress. He does not look toxic. HEART: He has a regular rate and rhythm without any murmurs, rubs, or gallops. LUNGS: Clear to auscultation bilaterally without wheezing, rales, or rhonchi. ABDOMEN: Soft. He is protuberant, but no tenderness palpated. Bowel sounds are positive. EXTREMITIES: Lower extremity with a trace edema, otherwise unremarkable. LABORATORY DATA: His labs from the [place] [facility] showed white count of 13.9, lactic acid of 2.6. His creatinine is 1.55. IMPRESSION AND PLAN: This is a 84-year-old male with several comorbidities including recent hydronephrosis, renal stone, and urinary tract infection with Proteus, presenting with the sepsis secondary to unknown source so far. Sepsis present on admission with tachycardia, elevated white count and lactic acid. We will schedule the blood cultures here. Previous imaging studies with chest x-ray, urinalysis, as well as CT abdomen did not find out any source of infection. I will continue with empiric antibiotic for the moment as we do not know the source yet. We will deescalate the antibiotics based on the clinical progression as well as culture results. The rest of the management based on clinical course. Full code. Job ID: [id number] MTDD
[2019-12-17 18:33] LABS: Band 36 % (5-11); Eosinophils 2 % (0-10); Lymphocytes 5 % (21-51); MDiff Complete? YES; Macrocytosis SLIGHT = 6-15 cells (100X) (0-5/hpf); Monocytes 13 % (0-10); Neutrophil 27 % (42-75); Platelet Morphology Comment Appears Adequate; Reactive Lymphocytes 17 % (0-10)
[2019-12-17 21:11] VITALS: BMI 32.5
[2019-12-17] MEDS: Cefepime 1 GM in Sodium Chloride 0.9% 100 ML IVPB SCH (21:17)
[2019-12-17] MEDS: Atorvastatin Calcium 40 MG TAB PO SCH (22:55)
[2019-12-18 04:25] LABS: #Basophils 0.1 thou/uL (0.0-0.2); #Eosinphils 0.2 thou/uL (0.0-0.7); #Lymphocytes 2.1 thou/uL (1.20-3.40); #Monocytes 1.6 thou/uL (0.11-0.59); #Neutrophils 7.2 thou/uL (1.40-6.50); %Basophils 0.5 % (0.0-1.0); %Eosinophils 2.1 % (0.0-10.0); %Lymphocytes 18.9 % (21.0-51.0); %Monocytes 14.4 % (0.0-10.0); Hemoglobin 12.4 g/dL (14.0-18.0); Mean Corpuscular HGB CONC 31.9 g/dL (32.0-36.0); Mean Corpuscular Hemoglobin 32.3 pg (27.0-31.0); Platelet Count 195 thou/uL (130-400); RBC Distribution Width 12.7 % (11.5-14.5); Red Blood Cell (RBC) Count 3.84 mill/uL (4.70-6.10); White Blood Cell (WBC) Count 11.2 thou/uL (4.8-10.8)
[2019-12-18] MEDS: Cefepime 1 GM in Sodium Chloride 0.9% 100 ML IVPB SCH ×2 (06:15→18:15)
[2019-12-18] MEDS ORDERED: Aspirin 81 mg Enteric Coated Tablet PO SCH (09:00)
[2019-12-18] MEDS: Acetaminophen 325 MG TAB PO PRN ×2 (09:38→20:57)
--- NOTE | 2019-12-18 14:03 | RAD ---
PORTABLE CHEST: 12/18/19 PROVIDED CLINICAL HISTORY: Cough. FINDINGS: Comparison 12/17/2019. The cardiac silhouette is within normal limits for portable technique. Evaluation is limited by patie nt body habitus. No definite focal consolidation, pleural fluid, or pneumothorax apparent. IMPRESSION: No definite evidence for an acute cardiopulmonary process. POS: ЕКАТЕРИНА
--- NOTE | 2019-12-18 14:41 | CT ---
CT Brain WO Con History: Altered mental status Comparison: CT brain 2018 Findings: Moderate chronic white matter microvascular vascular ischemic changes. No acute hemorrhage or infarct. Left maxillary mucosal retention cyst. Calvarium is intact. Impression: No acute intracranial abnormality.
--- NOTE | 2019-12-18 15:13 | PDOC.HOSPP ---
- Subjective Encounter Date: 12/18/19 Encounter Time: 10:35 Subjective: Patient participated in the physical therapy this morning. when he gets back he felt little tired. Talk to the physical therapist he had a little tachycardia during ambulation otherwise unremarkable. Patient is mourning as he is quite uncomfortable at this time. No specific complaints. n he has a low-grade temp and he is tachycardia his white count is 11.1 his creatinine is improved. - Objective Vital Signs & Weight: Vital Signs (12 hours) Temp Pulse Pulse Pulse Resp BP BP 12/18/19 11:16 99.4 F 113 H 18 128/60 12/18/19 10:14 122 H 143 H 130/59 L 12/18/19 07:20 99.5 F 113 H 18 140/67 12/18/19 04:32 98.9 F 117 H 18 149/66 H Pulse Ox 12/18/19 11:16 100 12/18/19 10:14 12/18/19 07:20 99 12/18/19 04:32 98 Weight Weight 220 lb 11.2 oz I&O: 12/17/19 12/18/19 12/19/19 06:59 06:59 06:59 Intake Total 1500 Balance 1500 Result Diagrams: 12/18/19 03:51 12/17/19 17:41 Hospitalist ROS - Medication Medications: Active Medications Generic Name Dose Route Start Last Admin Trade Name Freq PRN Reason Stop Dose Admin Acetaminophen 650 mg 12/17/19 17:26 12/18/19 09:38 Tylenol PO 650 mg Q4H PRN Administration Headache/Fever/Mild Pain (1-3) Aspirin 81 mg 12/18/19 09:00 12/18/19 09:38 Ecotrin PO 81 mg DAILY DRU Administration Atorvastatin Calcium 40 mg 12/17/19 21:00 12/17/19 22:55 Lipitor PO Not Given HS DRU Cefepime HCl 1 gm/ Sodium 100 mls @ 200 mls/hr 12/17/19 18:00 12/18/19 06:15 Chloride IVPB 100 mls 0600,1800 DRU Administration - Exam General Appearance: ill appearing Eye: PERRL ENT: normocephalic atraumatic Neck: supple Heart: RRR Respiratory: CTAB, normal chest expansion Gastrointestinal: soft, normal bowel sounds, distended Neurological: no focal deficits Psychiatric: A&O x 3 Hosp A/P - Plan Sepsis versus Sirs aS and no known source of sepsis identified yet Low-grade temperature, tachycardia and mild leukocytosis Acute kidney injury with dehydration -Creatinine level improved CT abdomen unremarkable CT head as well as chest x-ray without any acuity COVID ruled out Prior urine analysis benign. - history of urinary tract infection w..poteus renal stone and hydronephrosis Debilitation -He is able to participate with physical therapy without much difficulty. He is able to take p.o. intake. I would continue with the antibiotics ffor another 24 hours before de- escalating. Blood cultures so far are negative.
[2019-12-18 16:38] LABS: Bacteria/HPF None Seen HPF (None Seen); Bilirubin Negative (Negative); Blood, Urine 1+ (Negative); Clarity Clear (Clear); Glucose, Urine (Dipstick) Normal (Negative); Ketone, Urine 40 mg/dL (Negative); Leukocyte 75 Leu/uL (Negative); Nitrite Negative (Negative); Protein, Urine (Dipstick) 50 mg/dL (Neg-Trace); RBC/HPF 0-3 HPF (0-3); Specific Gravity, Urine 1.025 (1.002-1.036); Squamous Epithelial 0-3 HPF (0-3); Urobilinogen Normal mg/dL (Less than 2); WBC/HPF 21-50 HPF (0-3)
[2019-12-18] MEDS: Atorvastatin Calcium 40 MG TAB PO SCH (20:57)
[2019-12-18] MEDS: Senokot S 8.6-50 MG TAB PO SCH (20:57)
[2019-12-19 05:27] LABS: Anion Gap 11 mmol/L (10-20); BUN (Urea Nitrogen) 14 mg/dL (8.4-25.7); Calc. Creatinine Clearance 93 mL/min (70-130); Carbon Dioxide 25 mmol/L (23-31); Chloride 104 mmol/L (98-107); Estimated GFR-MDRD Greater than 90; Glucose 116 mg/dL (83-110); Potassium 3.8 mmol/L (3.5-5.1); Sodium 136 mmol/L (136-145)
[2019-12-19 05:37] LABS: #Eosinphils 0.2 thou/uL (0.0-0.7); #Lymphocytes 1.5 thou/uL (1.20-3.40); #Monocytes 1.4 thou/uL (0.11-0.59); #Neutrophils 7.4 thou/uL (1.40-6.50); %Basophils 0.1 % (0.0-1.0); %Eosinophils 1.9 % (0.0-10.0); %Lymphocytes 14.3 % (21.0-51.0); %Monocytes 13.2 % (0.0-10.0); %Neutrophils 70.5 % (42.0-75.0); Mean Corpuscular HGB CONC 31.8 g/dL (32.0-36.0); Mean Corpuscular Hemoglobin 31.7 pg (27.0-31.0); Mean Corpuscular Volume 99.9 fL (78.0-98.0); Mean Platelet Volume 7.9 fL (7.4-10.4); Platelet Count 185 thou/uL (130-400); RBC Distribution Width 12.5 % (11.5-14.5); Red Blood Cell (RBC) Count 3.79 mill/uL (4.70-6.10); White Blood Cell (WBC) Count 10.6 thou/uL (4.8-10.8)
[2019-12-19] MEDS: Cefepime 1 GM in Sodium Chloride 0.9% 100 ML IVPB SCH ×2 (05:40→17:36)
--- NOTE | 2019-12-19 08:38 | RAD ---
PORTABLE CHEST: Date: 12/19/2019 PROVIDED CLINICAL HISTORY: Evidence for pneumonia. FINDINGS: Comparison with 12/18/2019. Cardiac silhouette appears prominent, which may be at least partially on the basis of portable techni que. No focal consolidation, pleural fluid, or pneumothorax apparent. IMPRESSION: No evidence for an acute cardiopulmonary process. POS: ЕКАТЕРИНА
[2019-12-19] MEDS: Allopurinol 300 MG TAB PO SCH (08:57)
[2019-12-19] MEDS: Venlafaxine HCl XR 150 MG CAP PO SCH (08:57)
[2019-12-19] MEDS: Multivitamin W/ Minerals 1 TAB PO SCH (08:57)
[2019-12-19] MEDS: Loratadine 10 MG TAB PO SCH (08:57)
[2019-12-19] MEDS: Calcium Carbonate 600 MG + Vit D TAB PO SCH (08:57)
--- NOTE | 2019-12-19 12:41 | PDOC.HOSPP ---
- Subjective Encounter Date: 12/19/19 Encounter Time: 10:45 Subjective: awake, no sob, feels better no abd pain or nausea says he ate his breakfast - Objective Vital Signs & Weight: Vital Signs (12 hours) Temp Pulse Resp BP Pulse Ox 12/19/19 09:10 98 12/19/19 08:50 98.2 F 108 H 16 142/65 H 98 12/19/19 04:00 98.8 F 111 H 18 137/58 L 96 Weight Weight 218 lb 14.4 oz I&O: 12/18/19 12/19/19 12/20/19 06:59 06:59 06:59 Intake Total 1500 1680 Output Total 100 Balance 1500 1580 Result Diagrams: 12/19/19 04:44 12/19/19 04:44 Hospitalist ROS - Medication Medications: Active Medications Generic Name Dose Route Start Last Admin Trade Name Freq PRN Reason Stop Dose Admin Acetaminophen 650 mg 12/17/19 17:26 12/18/19 20:57 Tylenol PO 650 mg Q4H PRN Administration Headache/Fever/Mild Pain (1-3) Allopurinol 300 mg 12/19/19 09:00 12/19/19 08:57 Zyloprim PO 300 mg QAM DRU Administration Atorvastatin Calcium 40 mg 12/17/19 21:00 12/18/19 20:57 Lipitor PO 40 mg HS DRU Administration Calcium/Vitamin D 1 tab 12/19/19 09:00 12/19/19 08:57 Caltrate 600 + Vit D PO 1 tab DAILY DRU Administration Cefepime HCl 1 gm/ Sodium 100 mls @ 200 mls/hr 12/17/19 18:00 12/19/19 05:40 Chloride IVPB 100 mls 0600,1800 DRU Administration Iron/Minerals/Multivitamins 1 tab 12/19/19 09:00 12/19/19 08:57 Theragran M PO 1 tab DAILY DRU Administration Loratadine 10 mg 12/19/19 09:00 12/19/19 08:57 Claritin PO 10 mg DAILY DRU Administration Metoprolol Succinate 25 mg 12/19/19 09:00 12/19/19 08:57 Toprol Xl PO 25 mg DAILY DRU Administration Senna/Docusate Sodium 1 tab 12/18/19 21:00 12/18/19 20:57 Senokot S PO Not Given HS DRU Venlafaxine HCl 150 mg 12/19/19 09:00 12/19/19 08:57 Effexor Xr PO 150 mg QAM DRU Administration - Exam Eye: PERRL, anicteric sclera ENT: no oropharyngeal lesions, moist mucosa Neck: supple, no JVD Heart: RRR, no murmur Respiratory: no wheezes, no rales Gastrointestinal: soft, non-tender, non-distended, normal bowel sounds Extremities: no cyanosis, no edema Neurological: cranial nerve grossly intact, no focal deficits Hosp A/P (1) Sepsis Code(s): A41.9 - SEPSIS, UNSPECIFIED ORGANISM Status: Acute Qualifiers: Sepsis type: sepsis due to unspecified organism Sepsis acute organ dysfunction status: without acute organ dysfunction Qualified Code(s): A41.9 - Sepsis, unspecified organism (2) UTI (urinary tract infection) Status: Suspected Qualifiers: Urinary tract infection type: acute cystitis Hematuria presence: without hematuria Qualified Code(s): N30.00 - Acute cystitis without hematuria (3) COPD (chronic obstructive pulmonary disease) Status: Chronic Qualifiers: COPD type: chronic bronchitis (4) Dementia Code(s): F03.90 - UNSPECIFIED DEMENTIA WITHOUT BEHAVIORAL DISTURBANCE Status: Chronic Qualifiers: Dementia type: unspecified type Dementia behavioral disturbance: without behavioral disturbance Qualified Code(s): F03.90 - Unspecified dementia without behavioral disturbance (5) KARINA (acute kidney injury) Code(s): N17.9 - ACUTE KIDNEY FAILURE, UNSPECIFIED Status: Acute (6) Nausea & vomiting Code(s): R11.2 - NAUSEA WITH VOMITING, UNSPECIFIED Status: Resolved (7) Abdominal pain Code(s): R10.9 - UNSPECIFIED ABDOMINAL PAIN Status: Resolved (8) Thoracic compression fracture Code(s): S22.000A - WEDGE COMPRESSION FRACTURE OF UNSP THORACIC VERTEBRA, INIT Status: Chronic (9) Prostate cancer metastatic to multiple sites Code(s): C61 - MALIGNANT NEOPLASM OF PROSTATE Status: Chronic - Plan hemostable blood cs prelim is -ve is on cefepime, off vanc continue lipitor, toprol xl, venlafaxine renal function at almost baseline PT to mobilize as tolerated dc plan in am covid 19 pcr is -ve dc nasal canula O2.
[2019-12-19] MEDS: Senokot S 8.6-50 MG TAB PO SCH (20:36)
[2019-12-19] MEDS: Atorvastatin Calcium 40 MG TAB PO SCH (20:36)
[2019-12-20] MEDS: Cefepime 1 GM in Sodium Chloride 0.9% 100 ML IVPB SCH (05:28)
[2019-12-20] MEDS: Calcium Carbonate 600 MG + Vit D TAB PO SCH (07:56)
[2019-12-20] MEDS: Multivitamin W/ Minerals 1 TAB PO SCH (07:57)
[2019-12-20] MEDS: Venlafaxine HCl XR 150 MG CAP PO SCH (07:57)
[2019-12-20] MEDS: Allopurinol 300 MG TAB PO SCH (07:58)
[2019-12-20] MEDS: Loratadine 10 MG TAB PO SCH (08:01)
--- NOTE | 2019-12-20 08:42 | PDOC.HOSPP ---
- Subjective Encounter Date: 12/20/19 Encounter Time: 08:40 Subjective: only complaint is vague arm{bilat} pain - Objective Vital Signs & Weight: Vital Signs (12 hours) Temp Pulse Resp BP Pulse Ox 12/20/19 07:54 98.7 F 99 18 179/80 H 96 12/20/19 03:40 99.1 F 109 H 20 135/67 93 L Weight Weight 224 lb 4.8 oz I&O: 12/19/19 12/20/19 12/21/19 06:59 06:59 06:59 Intake Total 1680 1300 Output Total 100 Balance 1580 1300 Result Diagrams: 12/19/19 04:44 12/19/19 04:44 Hospitalist ROS - Medication Medications: Active Medications Generic Name Dose Route Start Last Admin Trade Name Freq PRN Reason Stop Dose Admin Acetaminophen 650 mg 12/17/19 17:26 12/18/19 20:57 Tylenol PO 650 mg Q4H PRN Administration Headache/Fever/Mild Pain (1-3) Allopurinol 300 mg 12/19/19 09:00 12/20/19 07:58 Zyloprim PO 300 mg QAM DRU Administration Atorvastatin Calcium 40 mg 12/17/19 21:00 12/19/19 20:36 Lipitor PO 40 mg HS DRU Administration Calcium/Vitamin D 1 tab 12/19/19 09:00 12/20/19 07:56 Caltrate 600 + Vit D PO 1 tab DAILY DRU Administration Cefepime HCl 1 gm/ Sodium 100 mls @ 200 mls/hr 12/17/19 18:00 12/20/19 05:28 Chloride IVPB 100 mls 0600,1800 DRU Administration Iron/Minerals/Multivitamins 1 tab 12/19/19 09:00 12/20/19 07:57 Theragran M PO 1 tab DAILY DRU Administration Loratadine 10 mg 12/19/19 09:00 12/20/19 08:01 Claritin PO 10 mg DAILY DRU Administration Metoprolol Succinate 25 mg 12/19/19 09:00 12/20/19 07:57 Toprol Xl PO 25 mg DAILY DRU Administration Senna/Docusate Sodium 1 tab 12/18/19 21:00 12/19/19 20:36 Senokot S PO 1 tab HS DRU Administration Venlafaxine HCl 150 mg 12/19/19 09:00 12/20/19 07:57 Effexor Xr PO 150 mg QAM DRU Administration - Exam General Appearance: awake alert Neck: no JVD Heart: RRR, no murmur Respiratory: CTAB Gastrointestinal: soft, non-tender, non-distended Extremities: no edema Hosp A/P (1) KARINA (acute kidney injury) Code(s): N17.9 - ACUTE KIDNEY FAILURE, UNSPECIFIED Status: Resolved (2) Sepsis Code(s): A41.9 - SEPSIS, UNSPECIFIED ORGANISM Status: Ruled-out Qualifiers: Sepsis type: sepsis due to unspecified organism Sepsis acute organ dysfunction status: without acute organ dysfunction Qualified Code(s): A41.9 - Sepsis, unspecified organism (3) COPD (chronic obstructive pulmonary disease) Status: Chronic Qualifiers: COPD type: chronic bronchitis (4) UTI (urinary tract infection) Status: Suspected Qualifiers: Urinary tract infection type: acute cystitis Hematuria presence: without hematuria Qualified Code(s): N30.00 - Acute cystitis without hematuria (5) Abdominal pain Code(s): R10.9 - UNSPECIFIED ABDOMINAL PAIN Status: Resolved (6) Nausea & vomiting Code(s): R11.2 - NAUSEA WITH VOMITING, UNSPECIFIED Status: Resolved Qualifiers: Vomiting Intractability: unspecified - Plan JACOBSEN neg- all CYS neg to date ARF and leukocytosis resolved DC iv antibx- start po omnicef, DC planning
[2019-12-20] MEDS ORDERED: Cefdinir 300 MG CAP PO SCH (09:00)
--- NOTE | 2019-12-20 10:26 | DIS ---
DATE OF ADMISSION: 12/17/2019 DATE OF DISCHARGE: 12/20/2019 PRIMARY CARE PROVIDER: Dr. Pepe Carr. DISPOSITION: Discharged home. FINAL DIAGNOSES: Urinary tract infection; acute kidney injury, resolved; nausea and vomiting, resolved; abdominal pain, resolved; chronic obstructive pulmonary disease. DISCHARGE MEDICATIONS: 1. Cefdinir 300 mg p.o. q.12 hours. 2. Allopurinol 300 mg a day. 3. Zytiga 1000 mg a day. 4. Prednisone 10 mg a day. 5. Metoprolol XL 25 one a day. 6. Venlafaxine 150 mg a day. 7. DuoNeb 3 mL q.6 hours p.r.n. ALLERGIES: ASPIRIN, DEXTROMETHORPHAN, GUAIFENESIN, IBUPROFEN, NAPROXEN. DIET: As tolerated. HOSPITAL COURSE: The patient admitted to the Hospitalist Service through [place] emergency room with nausea, vomiting, and diarrhea. He was placed in the hospital with a provisional diagnosis of sepsis, UTI, post recent hydronephrosis, renal stone. His initial studies, white count was 11.9 with a left shift. Initial creatinine was 1.38. Lytes balanced. Followup creatinine three days later was normal at 0.8. Urine revealed elevated leukocyte esterase, urine white cell count 21 to 50. COVID test was done, which was negative. The patient was admitted, placed on cefepime. His blood cultures were unremarkable. Urine culture was unremarkable. His lactic acid was minimally elevated at 2.6. The patient has been afebrile without discomfort. He is being discharged on Omnicef 300 mg twice a day for 7 days, to follow up with his PCP and will probably need followup with his urologist as well. PCP is Dr. Jv Tamayo on the computer and Dr. Pepe Carr on another site. He states he is seeing both. Job ID: [id number]
[2019-12-20 12:41] VITALS: BP 157/80; TEMP 98.5
== END 2019-12-20 14:04 | disposition home or self-care (01) | DRG 872 ==
LOC: ERS 14:25 → ERHOLD 16:28 → 2NO 20:23
PROVIDERS: ADMIT Internal Medicine; ATTEND Internal Medicine
DX: A41.9 Sepsis, unspecified organism (principal); N17.9 Acute kidney failure, unspecified; N30.00 Acute cystitis without hematuria; C79.9 Secondary malignant neoplasm of unspecified site; Z20.828 Contact with and (suspected) exposure to other viral communicable diseases; R65.20 Severe sepsis without septic shock; C61 Malignant neoplasm of prostate; M10.9 Gout, unspecified; J44.9 Chronic obstructive pulmonary disease, unspecified; F32.9 Major depressive disorder, single episode, unspecified; F03.90 Unspecified dementia, unspecified severity, without behavioral disturbance, psychotic disturbance, mood disturbance, and anxiety; G47.33 Obstructive sleep apnea (adult) (pediatric); I50.9 Heart failure, unspecified; E86.0 Dehydration; F17.220 Nicotine dependence, chewing tobacco, uncomplicated; Z88.8 Allergy status to other drugs, medicaments and biological substances; Z88.6 Allergy status to analgesic agent; Z79.52 Long term (current) use of systemic steroids; Z79.899 Other long term (current) drug therapy; S22.000D Wedge compression fracture of unspecified thoracic vertebra, subsequent encounter for fracture with routine healing
CPT/HCPCS: 36415; 70450; 71045; 80048; 80061; 81003; 81015; 83036; 84443; 85025; 96360; 96361; 96365; 96366; J0692; J3370; J3490; U0002

== ENCOUNTER 2021-10-22 15:49 | Inpatient (IN) | payer MEDICARE ==
[2021-10-22 17:04] LABS: #Eosinphils 0.1 thou/uL (0.0-0.7); #Lymphocytes 1.6 thou/uL (1.20-3.40); #Monocytes 0.8 thou/uL (0.11-0.59); #Neutrophils 7.1 thou/uL (1.40-6.50); %Basophils 0.2 % (0.0-1.0); %Eosinophils 0.6 % (0.0-10.0); %Lymphocytes 17.1 % (21.0-51.0); %Monocytes 8.5 % (0.0-10.0); %Neutrophils 73.6 % (42.0-75.0); Hemoglobin 12.6 g/dL (14.0-18.0); Mean Corpuscular HGB CONC 33.4 g/dL (32.0-36.0); Mean Corpuscular Hemoglobin 35.6 pg (27.0-31.0); Mean Platelet Volume 7.1 fL (7.4-10.4); Platelet Count 253 thou/uL (130-400); RBC Distribution Width 14.3 % (11.5-14.5); Red Blood Cell (RBC) Count 3.55 mill/uL (4.70-6.10); White Blood Cell (WBC) Count 9.6 thou/uL (4.8-10.8)
[2021-10-22 17:26] LABS: ALT (SGPT) 19 U/L (8-55); AST (SGOT) 32 U/L (5-34); Albumin 3.7 g/dL (3.4-4.8); Alkaline Phosphatase 72 U/L (40-110); Anion Gap 14 mmol/L (10-20); BUN (Urea Nitrogen) 18 mg/dL (8.4-25.7); Bilirubin, Total 0.5 mg/dL (0.2-1.2); Calc. Creatinine Clearance 0 mL/min (70-130); Calcium 9.6 mg/dL (7.8-10.44); Carbon Dioxide 34 mmol/L (23-31); Chloride 94 mmol/L (98-107); Globulin 2.4 g/dL (2.4-3.5); Glucose 143 mg/dL (83-110); Lipase 7 U/L (8-78); Potassium 4.5 mmol/L (3.5-5.1); Protein, Total 6.1 g/dL (5.8-8.1); Sodium 137 mmol/L (136-145)
[2021-10-22 17:56] LABS: CKMB 6.5 ng/mL (0-6.6)
[2021-10-22] MEDS ORDERED: Enoxaparin Sodium 100 MG/ML SYRINGE ONE (18:38)
[2021-10-22] MEDS ORDERED: Acetaminophen 325 MG TAB PO PRN (20:07)
[2021-10-22] MEDS ORDERED: Ondansetron PF 4 MG/2 ML Vial IVP PRN (20:07)
[2021-10-22] MEDS ORDERED: Senokot S 8.6-50 MG TAB PO PRN (20:09)
[2021-10-22] MEDS ORDERED: Albuterol Sulfate 2.5 mg/3 ml Neb NEB PRN (20:09)
[2021-10-22 20:33] VITALS: BMI 29.8
[2021-10-22] MEDS ORDERED: Heparin 25,000 units/D5W 500 ML IVPB SCH ×2 (20:45→21:15)
[2021-10-22 21:11] LABS: Troponin I 3.355 ng/mL (< 0.028)
[2021-10-22] MEDS ORDERED: Heparin 10,000 UNITS/ 10 ML VIAL SLOW IVP SCH (21:15)
[2021-10-22 21:20] LABS: Hemoglobin 12.7 g/dL (14.0-18.0); Platelet Count 248 thou/uL (130-400)
[2021-10-22 21:22] LABS: INR-International Normal Ratio 0.9; PTT 31.8 sec (22.9-36.1); Prothrombin Time 11.8 sec (12.0-14.7)
[2021-10-22] MEDS ORDERED: Mometasone 200 MCG/Formoterol 5 MCG 120 PUFF INHALER INH SCH (21:45)
[2021-10-22] MEDS: Docusate 100 MG CAP PO SCH (22:00)
[2021-10-22] MEDS: Acetaminophen ER (8hr) 650 MG TAB PO SCH (22:00)
[2021-10-22] MEDS: Vit A,C & E/Lutein/Minerals Tablet PO SCH (22:00)
[2021-10-23 00:05] LABS: Troponin I 3.895 ng/mL (< 0.028)
[2021-10-23 05:30] LABS: Hemoglobin 12.8 g/dL (14.0-18.0); Mean Corpuscular Hemoglobin 36.7 pg (27.0-31.0); Mean Platelet Volume 7.2 fL (7.4-10.4); Platelet Count 236 thou/uL (130-400); RBC Distribution Width 14.4 % (11.5-14.5); Red Blood Cell (RBC) Count 3.49 mill/uL (4.70-6.10); White Blood Cell (WBC) Count 8.6 thou/uL (4.8-10.8)
[2021-10-23 05:50] LABS: Anion Gap 13 mmol/L (10-20); BUN (Urea Nitrogen) 20 mg/dL (8.4-25.7); Calc. Creatinine Clearance 57 mL/min (70-130); Calcium 9.7 mg/dL (7.8-10.44); Carbon Dioxide 29 mmol/L (23-31); Cardiac Risk 3.7 (Less than 4.5); Chloride 100 mmol/L (98-107); Cholesterol 222 mg/dl (< 200 Desired); Glucose 115 mg/dL (83-110); HDL Cholesterol 60 mg/dL (>60 Neg Risk); LDL Cholesterol, Calculated 122 mg/dL; Potassium 3.7 mmol/L (3.5-5.1); Sodium 138 mmol/L (136-145); Triglycerides 199 mg/dL (Less than 150)
[2021-10-23 05:57] LABS: Band 12 % (5-11); Eosinophils 1 % (0-10); Lymphocytes 26 % (21-51); MDiff Complete? YES; Monocytes 6 % (0-10); Neutrophil 55 % (42-75)
[2021-10-23] MEDS: Levothyroxine Sodium 50 MCG TAB PO SCH (06:14)
[2021-10-23 06:34] LABS: Troponin I 5.375 ng/mL (< 0.028)
[2021-10-23] MEDS: Mometasone 200 MCG/Formoterol 5 MCG 120 PUFF INHALER INH SCH ×2 (06:59→18:39)
[2021-10-23] MEDS ORDERED: PHOSPHO PO SCH (09:00)
[2021-10-23] MEDS ORDERED: [UNRECOGNIZED DRUG - OTHER] PO SCH (09:00)
[2021-10-23] MEDS ORDERED: AST PO SCH (09:00)
[2021-10-23] MEDS ORDERED: DHA PO SCH (09:00)
[2021-10-23] MEDS: Acetaminophen ER (8hr) 650 MG TAB PO SCH ×2 (09:00→19:30)
[2021-10-23] MEDS ORDERED: Non-Formulary Item 1 EACH (Fluticasone/Salmeterol [Wixela 250-50 Inhub] 1 EACH Blst.W.Dev INH SCH (09:00)
[2021-10-23] MEDS ORDERED: KRILL PO SCH (09:00)
[2021-10-23] MEDS ORDERED: EPA PO SCH (09:00)
[2021-10-23] MEDS ORDERED: Iopamidol 370 76% 100 ML VIAL ONE (09:16)
[2021-10-23] MEDS: predniSONE 5 MG TAB PO SCH (10:01)
[2021-10-23] MEDS: Fluconazole 100 MG TAB PO SCH (10:01)
[2021-10-23] MEDS: Allopurinol 300 MG TAB PO SCH (10:01)
[2021-10-23] MEDS: Loratadine 10 MG TAB PO SCH (10:01)
[2021-10-23] MEDS: Calcium Carbonate 600 MG + Vit D TAB PO SCH (10:01)
[2021-10-23] MEDS: Famotidine 20 MG TAB PO SCH (10:02)
[2021-10-23] MEDS: Multivitamin W/ Minerals 1 TAB PO SCH (10:02)
[2021-10-23] MEDS: Vit A,C & E/Lutein/Minerals Tablet PO SCH ×2 (10:02→19:33)
[2021-10-23] MEDS: Furosemide 40 MG TAB PO SCH (10:02)
[2021-10-23] MEDS: Venlafaxine HCl XR 150 MG CAP PO SCH (10:02)
[2021-10-23] MEDS ORDERED: Aspirin 81 mg Enteric Coated Tablet PO SCH (13:00)
[2021-10-23] MEDS ORDERED: Abiraterone Acetate [Zytiga] 250 MG Tablet PO SCH (14:30)
[2021-10-23] MEDS: Atorvastatin Calcium 40 MG TAB PO SCH (19:30)
[2021-10-23] MEDS: Docusate 100 MG CAP PO SCH (19:31)
[2021-10-23] MEDS: Enoxaparin Sodium 40 MG/0.4 ML SYRINGE SC SCH (19:32)
[2021-10-23] MEDS: Lisinopril 5 MG TAB PO SCH (19:32)
[2021-10-24] MEDS: Levothyroxine Sodium 50 MCG TAB PO SCH (04:29)
[2021-10-24] MEDS: Mometasone 200 MCG/Formoterol 5 MCG 120 PUFF INHALER INH SCH ×2 (07:32→18:35)
[2021-10-24] MEDS: Acetaminophen ER (8hr) 650 MG TAB PO SCH ×2 (08:31→20:55)
[2021-10-24] MEDS: Allopurinol 300 MG TAB PO SCH (08:33)
[2021-10-24] MEDS: Calcium Carbonate 600 MG + Vit D TAB PO SCH (08:33)
[2021-10-24] MEDS: Famotidine 20 MG TAB PO SCH (08:33)
[2021-10-24] MEDS: Fluconazole 100 MG TAB PO SCH (08:34)
[2021-10-24] MEDS: Lisinopril 5 MG TAB PO SCH ×2 (08:35→20:57)
[2021-10-24] MEDS: Furosemide 40 MG TAB PO SCH (08:35)
[2021-10-24] MEDS: Multivitamin W/ Minerals 1 TAB PO SCH (08:36)
[2021-10-24] MEDS: Loratadine 10 MG TAB PO SCH (08:36)
[2021-10-24] MEDS: predniSONE 5 MG TAB PO SCH (08:37)
[2021-10-24] MEDS: Venlafaxine HCl XR 150 MG CAP PO SCH (08:39)
[2021-10-24] MEDS: Vit A,C & E/Lutein/Minerals Tablet PO SCH ×2 (08:39→20:57)
[2021-10-24] MEDS: Nicotine 14 MG PATCH TOP SCH (08:43)
[2021-10-24] MEDS ORDERED: Aspirin 81 mg Enteric Coated Tablet PO SCH (09:00)
[2021-10-24] MEDS: Aspirin 81 mg Enteric Coated Tablet PO SCH (10:02)
[2021-10-24 12:49] LABS: #Eosinphils 0.1 thou/uL (0.0-0.7); #Lymphocytes 1.7 thou/uL (1.20-3.40); #Monocytes 1.8 thou/uL (0.11-0.59); #Neutrophils 10.6 thou/uL (1.40-6.50); %Basophils 0.1 % (0.0-1.0); %Eosinophils 0.6 % (0.0-10.0); %Monocytes 12.7 % (0.0-10.0); %Neutrophils 74.6 % (42.0-75.0); Hemoglobin 12.3 g/dL (14.0-18.0); Mean Corpuscular HGB CONC 33.7 g/dL (32.0-36.0); Mean Corpuscular Hemoglobin 35.3 pg (27.0-31.0); Platelet Count 258 thou/uL (130-400); RBC Distribution Width 14.3 % (11.5-14.5); Red Blood Cell (RBC) Count 3.49 mill/uL (4.70-6.10); White Blood Cell (WBC) Count 14.2 thou/uL (4.8-10.8)
[2021-10-24] MEDS ORDERED: Sodium Chloride 0.9% 500 ML IV SCH ×2 (13:45→16:15)
[2021-10-24 16:01] LABS: Lactic Acid 2.6 mmol/L (0.5-2.2)
[2021-10-24 18:57] LABS: Bacteria/HPF None Seen HPF (None Seen); Bilirubin Negative (Negative); Blood, Urine Negative (Negative); Clarity Clear (Clear); Glucose, Urine (Dipstick) Normal (Negative); Ketone, Urine Negative (Negative); Leukocyte Negative Leu/uL (Negative); Nitrite Negative (Negative); Protein, Urine (Dipstick) 10 mg/dL (Neg-Trace); RBC/HPF 0-3 HPF (0-3); Specific Gravity, Urine 1.019 (1.002-1.036); Squamous Epithelial None Seen HPF (0-3); Urobilinogen Normal mg/dL (Less than 2); WBC/HPF 0-3 HPF (0-3)
[2021-10-24 18:58] LABS: Urine Culture Reflex No No
[2021-10-24] MEDS: Enoxaparin Sodium 40 MG/0.4 ML SYRINGE SC SCH (20:56)
[2021-10-24] MEDS: Docusate 100 MG CAP PO SCH (20:56)
[2021-10-24] MEDS: Atorvastatin Calcium 40 MG TAB PO SCH (20:56)
[2021-10-25] MEDS: Levothyroxine Sodium 50 MCG TAB PO SCH (06:32)
[2021-10-25] MEDS: Mometasone 200 MCG/Formoterol 5 MCG 120 PUFF INHALER INH SCH ×2 (07:51→18:30)
[2021-10-25 08:23] LABS: #Eosinphils 0.2 thou/uL (0.0-0.7); #Lymphocytes 2.9 thou/uL (1.20-3.40); #Monocytes 1.7 thou/uL (0.11-0.59); #Neutrophils 10.5 thou/uL (1.40-6.50); %Basophils 0.3 % (0.0-1.0); %Eosinophils 1.4 % (0.0-10.0); %Lymphocytes 19.1 % (21.0-51.0); %Neutrophils 68.3 % (42.0-75.0); Hemoglobin 11.3 g/dL (14.0-18.0); Mean Corpuscular Hemoglobin 36.3 pg (27.0-31.0); Platelet Count 215 thou/uL (130-400); RBC Distribution Width 14.3 % (11.5-14.5); Red Blood Cell (RBC) Count 3.12 mill/uL (4.70-6.10); White Blood Cell (WBC) Count 15.3 thou/uL (4.8-10.8)
[2021-10-25] MEDS ORDERED: Amoxicillin/Potassium Clav 875 MG TAB PO SCH (10:45)
[2021-10-25] MEDS ORDERED: Sodium Chloride 0.9% 500 ML IV SCH (11:00)
[2021-10-25] MEDS: Aspirin 81 mg Enteric Coated Tablet PO SCH (11:22)
[2021-10-25] MEDS: Acetaminophen ER (8hr) 650 MG TAB PO SCH ×2 (11:22→21:25)
[2021-10-25] MEDS: Multivitamin W/ Minerals 1 TAB PO SCH (11:23)
[2021-10-25] MEDS: Allopurinol 300 MG TAB PO SCH (11:23)
[2021-10-25] MEDS: Calcium Carbonate 600 MG + Vit D TAB PO SCH (11:23)
[2021-10-25] MEDS: Fluconazole 100 MG TAB PO SCH (11:23)
[2021-10-25] MEDS: Loratadine 10 MG TAB PO SCH (11:23)
[2021-10-25] MEDS: predniSONE 5 MG TAB PO SCH (11:24)
[2021-10-25] MEDS: Venlafaxine HCl XR 150 MG CAP PO SCH (11:25)
[2021-10-25] MEDS: Vit A,C & E/Lutein/Minerals Tablet PO SCH ×2 (11:25→21:25)
[2021-10-25] MEDS: Nicotine 14 MG PATCH TOP SCH (11:39)
[2021-10-25] MEDS: Famotidine 20 MG TAB PO SCH (11:39)
[2021-10-25] MEDS: Lisinopril 5 MG TAB PO SCH (12:14)
[2021-10-25] MEDS ORDERED: Piperacillin/Tazobactam 3.375 GM in Sodium Chloride 0.9% 100 ML IVPB SCH (18:00)
[2021-10-25] MEDS: Docusate 100 MG CAP PO SCH (21:24)
[2021-10-25] MEDS: Enoxaparin Sodium 40 MG/0.4 ML SYRINGE SC SCH (21:25)
[2021-10-25] MEDS: Atorvastatin Calcium 40 MG TAB PO SCH (21:25)
[2021-10-25] MEDS: Piperacillin/Tazobactam 3.375 GM in Sodium Chloride 0.9% 100 ML IVPB SCH (21:51)
[2021-10-26 05:15] LABS: #Basophils 0.1 thou/uL (0.0-0.2); #Eosinphils 0.1 thou/uL (0.0-0.7); #Lymphocytes 1.6 thou/uL (1.20-3.40); #Neutrophils 10.4 thou/uL (1.40-6.50); %Basophils 0.4 % (0.0-1.0); %Eosinophils 0.5 % (0.0-10.0); %Monocytes 7.8 % (0.0-10.0); %Neutrophils 79.4 % (42.0-75.0); Hemoglobin 10.7 g/dL (14.0-18.0); Mean Corpuscular HGB CONC 34.1 g/dL (32.0-36.0); Mean Corpuscular Hemoglobin 36.3 pg (27.0-31.0); Mean Platelet Volume 6.6 fL (7.4-10.4); Platelet Count 236 thou/uL (130-400); RBC Distribution Width 14.3 % (11.5-14.5); Red Blood Cell (RBC) Count 2.93 mill/uL (4.70-6.10); White Blood Cell (WBC) Count 13.1 thou/uL (4.8-10.8)
[2021-10-26 05:36] LABS: Anion Gap 13 mmol/L (10-20); BUN (Urea Nitrogen) 33 mg/dL (8.4-25.7); Calc. Creatinine Clearance 41 mL/min (70-130); Calcium 8.8 mg/dL (7.8-10.44); Carbon Dioxide 28 mmol/L (23-31); Chloride 98 mmol/L (98-107); Glucose 121 mg/dL (83-110); Potassium 4.2 mmol/L (3.5-5.1); Sodium 135 mmol/L (136-145)
[2021-10-26] MEDS: Levothyroxine Sodium 50 MCG TAB PO SCH (06:16)
[2021-10-26] MEDS: Piperacillin/Tazobactam 3.375 GM in Sodium Chloride 0.9% 100 ML IVPB SCH ×3 (06:16→20:50)
[2021-10-26] MEDS: Mometasone 200 MCG/Formoterol 5 MCG 120 PUFF INHALER INH SCH ×2 (06:59→18:25)
[2021-10-26] MEDS: Aspirin 81 mg Enteric Coated Tablet PO SCH (08:14)
[2021-10-26] MEDS: Vit A,C & E/Lutein/Minerals Tablet PO SCH ×2 (08:15→20:49)
[2021-10-26] MEDS: predniSONE 5 MG TAB PO SCH (08:15)
[2021-10-26] MEDS: Venlafaxine HCl XR 150 MG CAP PO SCH (08:15)
[2021-10-26] MEDS: Multivitamin W/ Minerals 1 TAB PO SCH (08:15)
[2021-10-26] MEDS: Calcium Carbonate 600 MG + Vit D TAB PO SCH (08:15)
[2021-10-26] MEDS: Loratadine 10 MG TAB PO SCH (08:15)
[2021-10-26] MEDS: Famotidine 20 MG TAB PO SCH (08:15)
[2021-10-26] MEDS ORDERED: D5 1/2 NS w/10 mEq KCl 1,000 ML/1,000 ML BAG IV SCH (08:15)
[2021-10-26] MEDS: Allopurinol 300 MG TAB PO SCH (08:15)
[2021-10-26] MEDS: Acetaminophen ER (8hr) 650 MG TAB PO SCH ×2 (09:32→20:47)
[2021-10-26] MEDS: Nicotine 14 MG PATCH TOP SCH (09:32)
[2021-10-26] MEDS: Fluconazole 100 MG TAB PO SCH (10:08)
[2021-10-26] MEDS: Dextrose 5 %-0.45 % NaCl 1,000 ML IV SCH ×2 (10:36→20:45)
[2021-10-26] MEDS: Docusate 100 MG CAP PO SCH (20:48)
[2021-10-26] MEDS: Atorvastatin Calcium 40 MG TAB PO SCH (20:48)
[2021-10-26] MEDS: Enoxaparin Sodium 40 MG/0.4 ML SYRINGE SC SCH (20:50)
[2021-10-27 05:10] LABS: #Eosinphils 0.2 thou/uL (0.0-0.7); #Lymphocytes 1.1 thou/uL (1.20-3.40); #Monocytes 0.9 thou/uL (0.11-0.59); %Basophils 0.2 % (0.0-1.0); %Lymphocytes 10.4 % (21.0-51.0); %Monocytes 9.1 % (0.0-10.0); %Neutrophils 78.2 % (42.0-75.0); Mean Corpuscular HGB CONC 33.9 g/dL (32.0-36.0); Mean Corpuscular Hemoglobin 36.4 pg (27.0-31.0); Mean Platelet Volume 6.8 fL (7.4-10.4); Platelet Count 254 thou/uL (130-400); Red Blood Cell (RBC) Count 2.73 mill/uL (4.70-6.10); White Blood Cell (WBC) Count 10.2 thou/uL (4.8-10.8)
[2021-10-27 05:29] LABS: Anion Gap 15 mmol/L (10-20); BUN (Urea Nitrogen) 22 mg/dL (8.4-25.7); Calc. Creatinine Clearance 61 mL/min (70-130); Calcium 9.1 mg/dL (7.8-10.44); Carbon Dioxide 25 mmol/L (23-31); Chloride 101 mmol/L (98-107); Glucose 114 mg/dL (83-110); Sodium 137 mmol/L (136-145)
[2021-10-27] MEDS: Levothyroxine Sodium 50 MCG TAB PO SCH (05:50)
[2021-10-27] MEDS: Piperacillin/Tazobactam 3.375 GM in Sodium Chloride 0.9% 100 ML IVPB SCH ×3 (05:50→21:33)
[2021-10-27] MEDS: Dextrose 5 %-0.45 % NaCl 1,000 ML IV SCH (05:56)
[2021-10-27] MEDS: Mometasone 200 MCG/Formoterol 5 MCG 120 PUFF INHALER INH SCH ×2 (06:37→19:24)
[2021-10-27] MEDS ORDERED: Electrolyte Replacement Protocol 1 EACH FS SCH (09:30)
[2021-10-27] MEDS ORDERED: Electrolyte Replacement Protocol FS PRN (09:30)
[2021-10-27] MEDS: Aspirin 81 mg Enteric Coated Tablet PO SCH (09:32)
[2021-10-27] MEDS: Calcium Carbonate 600 MG + Vit D TAB PO SCH (09:32)
[2021-10-27] MEDS: Allopurinol 300 MG TAB PO SCH (09:32)
[2021-10-27] MEDS: Acetaminophen ER (8hr) 650 MG TAB PO SCH ×2 (09:32→20:10)
[2021-10-27] MEDS: Famotidine 20 MG TAB PO SCH (09:33)
[2021-10-27] MEDS: Multivitamin W/ Minerals 1 TAB PO SCH (09:33)
[2021-10-27] MEDS: Loratadine 10 MG TAB PO SCH (09:33)
[2021-10-27] MEDS: Fluconazole 100 MG TAB PO SCH (09:33)
[2021-10-27] MEDS: predniSONE 5 MG TAB PO SCH (09:34)
[2021-10-27] MEDS: Vit A,C & E/Lutein/Minerals Tablet PO SCH ×2 (09:34→20:10)
[2021-10-27] MEDS: Venlafaxine HCl XR 150 MG CAP PO SCH (09:34)
[2021-10-27] MEDS: Nicotine 14 MG PATCH TOP SCH (09:40)
[2021-10-27] MEDS ORDERED: Potassium Chloride 20 MEQ TAB PO SCH (14:00)
[2021-10-27 15:05] LABS: Magnesium 2.2 mg/dL (1.6-2.6)
[2021-10-27 19:57] LABS: Potassium 4.7 mmol/L (3.5-5.1)
[2021-10-27] MEDS: Atorvastatin Calcium 40 MG TAB PO SCH (20:10)
[2021-10-27] MEDS: Docusate 100 MG CAP PO SCH (20:10)
[2021-10-27] MEDS: Enoxaparin Sodium 40 MG/0.4 ML SYRINGE SC SCH (20:11)
[2021-10-27] MEDS ORDERED: Multivit, Therapeutic 1 TAB PO SCH (21:00)
[2021-10-27] MEDS ORDERED: Folic Acid 1 MG TAB PO SCH (21:00)
[2021-10-27] MEDS ORDERED: Cyanocobalamin (Vitamin B-12) 1,000 MCG TAB PO SCH (21:00)
[2021-10-27] MEDS ORDERED: Saccharomyces boulardii 250 MG CAP PO SCH (21:00)
[2021-10-28 05:29] LABS: #Eosinphils 0.2 thou/uL (0.0-0.7); #Lymphocytes 1.3 thou/uL (1.20-3.40); #Monocytes 0.9 thou/uL (0.11-0.59); #Neutrophils 5.6 thou/uL (1.40-6.50); %Basophils 0.2 % (0.0-1.0); %Eosinophils 2.7 % (0.0-10.0); %Lymphocytes 16.4 % (21.0-51.0); %Monocytes 11.3 % (0.0-10.0); %Neutrophils 69.3 % (42.0-75.0); Hemoglobin 10.3 g/dL (14.0-18.0); Mean Corpuscular HGB CONC 33.9 g/dL (32.0-36.0); Mean Corpuscular Hemoglobin 36.2 pg (27.0-31.0); Mean Platelet Volume 6.4 fL (7.4-10.4); Platelet Count 257 thou/uL (130-400); RBC Distribution Width 13.9 % (11.5-14.5); Red Blood Cell (RBC) Count 2.85 mill/uL (4.70-6.10)
[2021-10-28 05:58] LABS: ALT (SGPT) 18 U/L (8-55); AST (SGOT) 26 U/L (5-34); Albumin 2.9 g/dL (3.4-4.8); Alkaline Phosphatase 69 U/L (40-110); Anion Gap 12 mmol/L (10-20); BUN (Urea Nitrogen) 18 mg/dL (8.4-25.7); Bilirubin, Total 0.3 mg/dL (0.2-1.2); Calc. Creatinine Clearance 66 mL/min (70-130); Calcium 8.6 mg/dL (7.8-10.44); Carbon Dioxide 28 mmol/L (23-31); Chloride 104 mmol/L (98-107); Globulin 2.8 g/dL (2.4-3.5); Glucose 96 mg/dL (83-110); Potassium 4.6 mmol/L (3.5-5.1); Protein, Total 5.7 g/dL (5.8-8.1); Sodium 139 mmol/L (136-145)
[2021-10-28] MEDS: Piperacillin/Tazobactam 3.375 GM in Sodium Chloride 0.9% 100 ML IVPB SCH (06:00)
[2021-10-28] MEDS: Levothyroxine Sodium 50 MCG TAB PO SCH (06:00)
[2021-10-28 06:03] LABS: Phosphorus 1.7 mg/dL (2.3-4.7)
[2021-10-28] MEDS: Mometasone 200 MCG/Formoterol 5 MCG 120 PUFF INHALER INH SCH (06:33)
[2021-10-28] MEDS ORDERED: PHOS-NAK 1 PKT PACK PO SCH (08:00)
[2021-10-28] MEDS ORDERED: Magnesium 2 GM/50 ML(in water) 2 GM in Premix Bag 1 BAG IVPB SCH (08:00)
[2021-10-28] MEDS: Vit A,C & E/Lutein/Minerals Tablet PO SCH (08:58)
[2021-10-28] MEDS: Venlafaxine HCl XR 150 MG CAP PO SCH (08:58)
[2021-10-28] MEDS: predniSONE 5 MG TAB PO SCH (08:59)
[2021-10-28] MEDS: Calcium Carbonate 600 MG + Vit D TAB PO SCH (08:59)
[2021-10-28] MEDS: Famotidine 20 MG TAB PO SCH (08:59)
[2021-10-28] MEDS: Multivitamin W/ Minerals 1 TAB PO SCH (08:59)
[2021-10-28] MEDS: Allopurinol 300 MG TAB PO SCH (08:59)
[2021-10-28] MEDS: Acetaminophen ER (8hr) 650 MG TAB PO SCH (08:59)
[2021-10-28] MEDS: Aspirin 81 mg Enteric Coated Tablet PO SCH (08:59)
[2021-10-28] MEDS ORDERED: Sodium Phosphate 15 MMOL in Sodium Chloride 0.9% 250 ML 250 ML IVPB SCH (10:00)
[2021-10-28] MEDS: Loratadine 10 MG TAB PO SCH (10:13)
[2021-10-28] MEDS: Nicotine 14 MG PATCH TOP SCH (10:13)
[2021-10-28 11:42] VITALS: TEMP 98
[2021-10-28 12:51] VITALS: BP 179/83
== END 2021-10-28 15:30 | disposition hospice, home (50) | DRG 280 ==
LOC: ERS 15:49 → 2SW 18:14 → OBSVTOIN 10-23 10:34 → 2SW 10-23 12:16
PROVIDERS: ADMIT Hospitalist; ATTEND Internal Medicine
DX: I21.4 Non-ST elevation (NSTEMI) myocardial infarction (principal); A41.9 Sepsis, unspecified organism; J69.0 Pneumonitis due to inhalation of food and vomit; R65.20 Severe sepsis without septic shock; E87.2 Acidosis; N17.9 Acute kidney failure, unspecified; G93.40 Encephalopathy, unspecified; I50.42 Chronic combined systolic (congestive) and diastolic (congestive) heart failure; I13.0 Hypertensive heart and chronic kidney disease with heart failure and stage 1 through stage 4 chronic kidney disease, or unspecified chronic kidney disease; I25.10 Atherosclerotic heart disease of native coronary artery without angina pectoris; I48.91 Unspecified atrial fibrillation; J44.9 Chronic obstructive pulmonary disease, unspecified; F03.90 Unspecified dementia, unspecified severity, without behavioral disturbance, psychotic disturbance, mood disturbance, and anxiety; F32.A Depression, unspecified; E03.9 Hypothyroidism, unspecified; G47.33 Obstructive sleep apnea (adult) (pediatric); M10.9 Gout, unspecified; Z66 Do not resuscitate; R13.10 Dysphagia, unspecified; I25.5 Ischemic cardiomyopathy; N18.2 Chronic kidney disease, stage 2 (mild); I08.3 Combined rheumatic disorders of mitral, aortic and tricuspid valves; Z20.822 Contact with and (suspected) exposure to COVID-19; D63.1 Anemia in chronic kidney disease; Z88.8 Allergy status to other drugs, medicaments and biological substances; Z88.1 Allergy status to other antibiotic agents; Z79.51 Long term (current) use of inhaled steroids; Z79.899 Other long term (current) drug therapy
CPT/HCPCS: 36415; 71045; 71275; 80048; 80053; 80061; 81001; 82553; 83605; 83690; 83735; 83880; 84100; 84145; 84443; 84484; 85025; 85610; 85730; 87040; 87070; 87077; 87186; 87205; 93005; 93010; 93306; 94640; 94760; 96365; 96366; 96372; G0378; J1644; J1650; J2405; J2543; J3475; J3490; J7030; J7042; J7050; J7512; J7620; Q9967; U0003; U0005